=== PATIENT | female | born 1940 | race Caucasian/White ===

== ENCOUNTER 2016-08-13 18:57 | Inpatient (IN) | payer OTHER, MEDICAID ==
[~2016-08-13] VITALS: Ht 160 cm; Wt 52.8 kg
[~2016-08-13 18:57] MED LIST: ASPI81TA3 PO; FOLI-49 PO; IPRA4AER INHALATION; LORA1TAB PO; MONT5TAB16 PO; MORP30TA3 PO; POLY17PO6 PO
[2016-08-13] MEDS ORDERED: FLUT9.9S NASAL (22:34)
[2016-08-13] MEDS ORDERED: LORA1TAB PO (22:35)
[2016-08-13] MEDS ORDERED: ALBU2.5V3 NEB (22:36)
--- NOTE | 2016-08-13 23:15 | RADRPT ---
PROCEDURE: Chest xray. CLINICAL INDICATION: Shortness of breath. History of stage IV lung cancer. TECHNIQUE: A portable semi-erect AP view of the chest was obtained. COMPARISON: A 05/03/2016. FINDINGS: There is essentially complete dense opacification of the left hemithorax. The right lung is unremark able. The cardiac silhouette is partially obscured. The heart and lower trachea are shifted to the right due to mass effect. Again seen are sclerotic osseous masses involving the least 2 left-sided r ibs. The right-sided implantable port is in stable position with its tip projecting in the right at rium. IMPRESSION: Essentially complete dense opacification of the left hemithorax, which may be related to any combina tion of pleural effusion, atelectasis, mass, and / or consolidation. Associated rightward shift of t he lower trachea/mediastinum and the heart. Redemonstration of sclerotic osseous masses involving left-sided ribs. RPTAT:PP .Kristina Sotleo MD, MD Date Time Electronically viewed and signed by .Kristina Sotelo MD, on 08/13/2016 23:10 .K/
[2016-08-13 23:16] LABS: BASOPHILS % 0.5 % (0.0-2.0); CONDITION 1; EOSINOPHILS # 0.1 10^3/ul (0.0-0.5); EOSINOPHILS % 1.1 % (0.0-7.0); HEMATOCRIT 37.2 % (37.0-47.0); HEMOGLOBIN 12.6 g/dl (12.0-16.0); LH ANALYZER COMMENTS 1; LYMPHOCYTES # 2.3 10^3/ul (0.8-2.9); LYMPHOCYTES % 22.9 % (15.0-51.0); MEAN CORPUSCULAR HEMOGLOBIN 27.4 pg (29.0-33.0); MEAN CORPUSCULAR VOLUME 80.8 fl (82.0-101.0); MEAN PLATELET VOLUME 7.5 fl (7.4-10.4); MONOCYTE # 0.9 10^3/ul (0.3-0.9); MONOCYTES % 8.6 % (0.0-11.0); NEUTROPHIL # 6.6 10^3/ul (1.6-7.5); NEUTROPHILS % 66.9 % (39.0-77.0); PLATELET COUNT 380 10^3/UL (140-440); RED BLOOD COUNT 4.61 10^6/ul (4.20-5.40); RED CELL DISTRIBUTION WIDTH 14.9 % (11.5-14.5); UNCORRECTED WBC 9.9 10^3/ul (4.8-10.8); WHITE BLOOD COUNT 9.9 10^3/ul (4.8-10.8)
[2016-08-13 23:21] LABS: ALBUMIN 4.2 g/dl (3.3-4.9); CHLORIDE 100 mmol/L (97-110); SODIUM 141 mmol/L (135-144)
[2016-08-13 23:24] LABS: ALANINE AMINOTRANSFERASE 24 IU/L (13-69); ALBUMIN/GLOBULIN RATIO 1.31; ALKALINE PHOSPHATASE 82 IU/L (42-121); ANION GAP 19 (8-16); ASPARTATE AMINO TRANSFERASE 29 IU/L (15-46); BLOOD UREA NITROGEN 22 mg/dl (7-20); CALCIUM 9.4 mg/dl (8.4-10.2); CARBON DIOXIDE 26 mmol/L (21-31); CREATININE 0.74 mg/dl (0.44-1.00); GLUCOSE 78 mg/dl (70-220); TOTAL PROTEIN 7.4 g/dl (6.1-8.1)
[2016-08-13 23:40] LABS: INR 0.95; PROTIME 12.7 Sec (12.2-14.2)
[2016-08-13 23:41] LABS: PARTIAL THROMBOPLASTIN TIME 30.5 Sec (25.0-35.0)
[2016-08-13 23:42] LABS: TROPONIN-I < 0.012 ng/ml (0.00-0.12)
--- NOTE | 2016-08-13 23:49 | ERA ---
ER Documentation Chief Complaint Date/Time DATE: 08/13/16 TIME: 23:47 Chief Complaint SOB lately, hx St4 Lung CA, on immunosuppressants HPI This is 76-year-old female with a history of stage IV left lung cancer with recurrent left lung pleural effusions. The patient had a PET scan on Monday, 08 August demonstrating left lung opacification. She discuss resolving the issue with pleurocentesis with her doctor who wanted to admit her to the hospital but she did not want to at that time she says now she wants to come in and get it taken care of. She has some mild shortness of breath with walking but no shortness of breath at rest no fever only a slight cough is nonproductive. The patient states that she has had this for the fourth time now. She says that the lung cancer is the primary and there is no metastasis according to her. ROS All systems reviewed and are negative except as per history of present illness. Medications Home Meds Active Scripts Albuterol/Ipratropium* (Combivent Respimat*) 20-100 Mcg/Inh - 4 Gm Aer.w.adap, 1 PUFF INHALATION QID, #1 INHALER Prov:ARIAN ANDERSON MD 05/04/16 Reported Medications Albuterol Sulfate* (Albuterol Sulfate* Neb) 0.083%-3 Ml Neb, 2.5 MG NEB PRN Y for WHEEZING AND SOB, #30 VIAL 08/13/16 Lorazepam* (Lorazepam*) 1 Mg Tablet, 1 MG PO HS Y for SLEEP, #30 TAB 08/13/16 Fluticasone Propionate (Flonase Allergy Relief) 9.9 Ml [place].susp, 1 SPRAY NASAL DAILY, #1 BOTTLE TO EACH NOSTRIL 08/13/16 Folic Acid* (Folic Acid*) 1 Mg Tablet, 1 MG PO DAILY, TAB 03/23/15 Aspirin* (Aspirin* Chew) 81 Mg Tab.chew, 81 MG PO DAILY, TAB.CHEW 03/23/15 Montelukast Sodium* (Montelukast Sodium*) 5 Mg Tab.chew, 5 MG PO HS, TAB.CHEW 03/23/15 Discontinued Reported Medications Lorazepam* (Lorazepam*) 1 Mg Tablet, 1 MG PO DAILY Y for ANXIETY, TAB 03/23/15 Discontinued Scripts Morphine Sulfate (Morphine Sulfate ER) 30 Mg Tablet.er, 30 MG PO BID for 1 Day, TAB Prov:ARIAN ANDERSON MD 05/04/16 Polyethylene Glycol* (Miralax*) 17 Gm Powd.pack, 17 GM PO DAILY Y for CONSTIPATION for 1 Day Prov:ARIAN ANDERSON MD 01/27/16 Allergies Allergies: Coded Allergies: codeine (Verified Allergy, Unknown, 08/13/16) PMhx/Soc Medical and Surgical Hx: pt denies Surgical Hx History of Surgery: No Anesthesia Reaction: Yes Hx Neurological Disorder: No Hx Respiratory Disorders: No Hx Cardiac Disorders: No Hx Psychiatric Problems: No Hx Alcohol Use: No Hx Substance Use: No Hx Tobacco Use: No Smoking Status: Unknown if ever smoked FmHx Family History: No coronary disease Physical Exam Vitals Vital Signs Date Time Temp Pulse Resp B/P Pulse Ox O2 Delivery O2 Flow Rate FiO2 08/13/16 23:21 62 20 128/66 100 Nasal Cannula 2.0 08/13/16 23:17 Nasal Cannula 2 08/13/16 22:29 66 21 139/95 100 Room Air 08/13/16 19:00 98.6 81 20 147/62 98 Physical Exam Const: Well-developed, well-nourished Head: Atraumatic, normocephalic Eyes: Normal Conjunctiva, PERRLA, EOMI, normal sclera, no nystagmus ENT: Normal External Ears, Nose and Mouth, moist mucus membranes. Neck: Full range of motion. No meningismus, no lymphadenopathy. Resp: Clear to auscultation right lung, left lung has no breath sounds , no shortness of breath , no wheezing, rhonchi, rales Cardio: Regular rate and rhythm, no murmurs, S1 S2 present Abd: Soft, non tender x 4, non distended. Normal bowel sounds, no guarding or rebound, no pulsitile abdominal masses or bruits Skin: No petechiae or rashes, no ecchymosis , no maculopapular rash Back: No midline or flank tenderness Ext: No cyanosis, or edema, FROM x 4, normal inspection, neurovascularly intact x 4 Neur: Awake and alert, STR 5/5 x 4, sensation intact x 4, no focal findings, cerebellum intact Psych: Normal Mood and Affect Result Diagram: 08/13/16 2300 08/13/16 2300 Results 24 hrs Laboratory Tests Test 08/13/16 23:00 Activated Partial Thromboplast Time 30.5Sec Alanine Aminotransferase (ALT/SGPT) 24IU/L Albumin 4.2g/dl Albumin/Globulin Ratio 1.31 Alkaline Phosphatase 82IU/L Anion Gap 19 Aspartate Amino Transf (AST/SGOT) 29IU/L Basophils # 0.010^3/ul Basophils % 0.5% Blood Morphology Comment Blood Urea Nitrogen 22mg/dl Calcium Level 9.4mg/dl Carbon Dioxide Level 26mmol/L Chloride Level 100mmol/L Creatinine 0.74mg/dl Direct Bilirubin 0.00mg/dl Eosinophils # 0.110^3/ul Eosinophils % 1.1% Globulin 3.20g/dl Glucose Level 78mg/dl Hematocrit 37.2% Hemoglobin 12.6g/dl INR International Normalized Ratio 0.95 Indirect Bilirubin 0.0mg/dl Lymphocytes # 2.310^3/ul Lymphocytes % 22.9% Mean Corpuscular Hemoglobin 27.4pg Mean Corpuscular Hemoglobin Concent 34.0g/dl Mean Corpuscular Volume 80.8fl Mean Platelet Volume 7.5fl Monocytes # 0.910^3/ul Monocytes % 8.6% Neutrophils # 6.610^3/ul Neutrophils % 66.9% Nucleated Red Blood Cells # 0.010^3/ul Nucleated Red Blood Cells % 0.0/100WBC Platelet Count 43475^3/UL Potassium Level 4.0mmol/L Prothrombin Time 12.7Sec Prothrombin Time Ratio 1.0 Red Blood Count 4.6110^6/ul Red Cell Distribution Width 14.9% Sodium Level 141mmol/L Total Bilirubin 0.0mg/dl Total Protein 7.4g/dl Troponin I < 0.012ng/ml White Blood Count 9.910^3/ul Procedures/MDM PROCEDURE: Chest xray. CLINICAL INDICATION: Shortness of breath. History of stage IV lung cancer. TECHNIQUE: A portable semi-erect AP view of the chest was obtained. COMPARISON: A 05/03/2016. FINDINGS: There is essentially complete dense opacification of the left hemithorax. The right lung is unremarkable. The cardiac silhouette is partially obscured. The heart and lower trachea are shifted to the right due to mass effect. Again seen are sclerotic osseous masses involving the least 2 left-sided ribs. The right- sided implantable port is in stable position with its tip projecting in the right atrium. IMPRESSION: Essentially complete dense opacification of the left hemithorax, which may be related to any combination of pleural effusion, atelectasis, mass, and / or consolidation. Associated rightward shift of the lower trachea/mediastinum and the heart. Redemonstration of sclerotic osseous masses involving left-sided ribs. RPTAT:PP .Kristina Sotelo MD, MD Date Time Electronically viewed and signed by .Kristina Sotelo MD, MD on 08/13/2016 23: 10 .K/ CC: ARIADNE CARRERA DO We will admit the patient to the hospital again for thoracentesis of the left lung Departure Diagnosis: Primary Impression: Recurrent left pleural effusion Additional Impression: Pleural effusion, left Condition: Stable ARIADNE CARRERA DO Aug 13, 2016 23:49
[2016-08-14] VITALS (13 sets, daily range): BP systolic 83–117; BP diastolic 47–55; PULSE 60–72; RESP 18–20; Ht 160 cm; Wt 52.8 kg
[2016-08-14] MEDS ORDERED: SOD CHLORIDE 0.9% 1,000 ML IV SCH (00:26)
[2016-08-14] MEDS ORDERED: ONDANSETRON 4 MG INJ IV PRN ×2 (00:30→01:00)
[2016-08-14] MEDS ORDERED: ACETAMINOPHEN 325 MG TAB PO PRN ×2 (00:30→01:00)
--- NOTE | 2016-08-14 00:51 | HP ---
Date/Time of Note Date/Time of Note DATE: 08/14/16 TIME: 00:40 Assessment/Plan VTE Prophylaxis VTE Prophylaxis Intervention: heparin Assessment/Plan Assessment/Plan This is a 76-year-old female with a known history of stage IV adenocarcinoma of the lung who is undergoing chemotherapy with Dr. Quiñones, malignant pleural effusion, dyslipidemia, glaucoma, anemia of chronic disease who has been having shortness of breath for the last week. 1. Malignant pleural effusion - will admit the patient for observation to telemetry, thoracentesis with cytology, consult pulmonology, respiratory therapy prn, repeat CXR in am 2. Non-small cell CA stage IV - consult Dr. Quiñones for appropriate follow - up 3. DVT remotely - continue with heparin post thoracentesis 4. Dyslipidemia - statin 5. Glaucoma - continue with home eye drops 6. Anemia of chronic disease - monitor h/h, transfuse if hgb < 8 g/dL 7. GI ppx - pepcid 8. DVT ppx - heparin answered all of her questions. as per clinical course. patient refused IV insertion at this time. this history and physical took greater then 45 minutes to complete HPI/ROS Admit Date/Time Admit Date/Time 08/14/2016, 12:41 am Hx of Present Illness This is a 76-year-old female with a known history of stage IV adenocarcinoma of the lung who is undergoing chemotherapy with Dr. Quiñones, malignant pleural effusion, dyslipidemia, glaucoma, anemia of chronic disease who has been having shortness of breath for the last week. She was suppose to have a thoracentesis as an outpatient, but thought it would get better. She has had worsening shortness of breath, with pleuritic chest pain, chills, and dizziness as a result. She does not want a pleurex catheter or VATS procedure at this time 2/2 to the multiple locations of the malignant lung CA. Her last chemotherapy was 3 weeks ago, and is scheduled for repeat on 08/16/2016. I had spoken to her in regards to the possibly having her chemotherapy here. Otherwise denies any fevers, nausea/vomiting/diarrhea/constipation, loss of consciousness, urinary/bowel irregularities or other constitutional symptoms. Her last admission was 05/02/2016. ER course: supplemental oxygen ROS 14 point review of systems completed, please refer to HPI for any positive findings PMH/Family/Social Past Medical History Malignant pleural effusion recurrent, stage IV adenocarcinoma of the lungs, glaucoma, anemia of chronic disease, remote history of DVT, breast cancer Past Surgical History Left lumpectomy, appendectomy, tonsillectomy, uterine cyst removal, multiple biopsies, s/p thoracentesis Family History Significant Family History: no pertinent family hx Social History Alcohol Use: none Smoking Status: Former smoker Drug Use: none Exam/Review of Systems Vital Signs Vitals Vital Signs Date Time Temp Pulse Resp B/P Pulse Ox O2 Delivery O2 Flow Rate FiO2 08/14/16 00:06 65 20 118/99 99 Room Air 08/13/16 23:21 2.0 08/13/16 19:00 98.6 Exam Exam Gen Opal: mild distress 2/2 to shortness of breath, AAOx4, cachetic body habitus HEENT: NC/AT, PERRLA, EOMI, no pharyngeal erythema, no tonsillar exudates, no lymphadenopathy, no JVD, no carotid bruits NECK: supple, no thyromegaly THORAX: symmetrical, no obvious deformities CV: S1S2, RRR, no M/G/R Lungs: right lung clear, left lung no aeration/breath sounds throughout all lung tomlin Abd: soft, NT/ND, +BS, no rebound, no guarding, neg HSM EXT: no edema, scattered ecchymosis, no clubbing, FROM Neuro: CN II-XII grossly intact, no focal deficits Psych: good mentation, alert and oriented, good mood and affect Skin: scattered petechiae, ecchymoses Labs Result Diagram: 08/13/16 2300 08/13/16 2300 Medications Medications Current Medications Sodium Chloride (NS) 1,000 ml @ 80 mls/hr [id number] IV ; Start 08/14/16 at 00:26 ; Stop 08/14/16 at 12:55 Procedures Procedures CXR IMPRESSION: Essentially complete dense opacification of the left hemithorax, which may be related to any combination of pleural effusion, atelectasis, mass, and / or consolidation. Associated rightward shift of the lower trachea/mediastinum and the heart. Redemonstration of sclerotic osseous masses involving left-sided ribs. YOLI GAMEZ MD Aug 14, 2016 00:51
[2016-08-14] MEDS ORDERED: NACL 0.9% 3 ML SYG IV SCH (01:00)
[2016-08-14] MEDS ORDERED: NITROGLYCERIN (SL) 0.4 MG TAB SL PRN (01:00)
[2016-08-14] MEDS ORDERED: ZOLPIDEM 5 MG TAB PO PRN (01:00)
[2016-08-14] MEDS ORDERED: morphine 2 MG INJ IV PRN (01:00)
[2016-08-14] MEDS: LORAZEPAM 2 MG INJ IV PRN ×2 (02:32→20:56)
[2016-08-14] MEDS: ASPIRIN 81 MG TAB PO SCH (09:00)
[2016-08-14] MEDS: FOLIC ACID 1 MG TAB PO SCH (09:00)
[2016-08-14] MEDS ORDERED: NON-FORMULARY/PATIENT OWN MED (Albuterol/Ipratropium* (Combivent Respimat*) 1 PUFF) INHALATION SCH (09:00)
[2016-08-14] MEDS: FAMOTIDINE 20 MG TAB PO SCH ×2 (09:00→20:56)
[2016-08-14] MEDS: FLUTICASONE 0.05% 16 GM NAS SPRAY NASAL SCH (09:22)
[2016-08-14] MEDS: IPRATROPIUM (HFA) 12.9 GM INHALER INH SCH ×4 (09:50→22:45)
[2016-08-14] MEDS: ALBUTEROL HFA 8 GM INHALER INH SCH ×4 (09:51→22:46)
[2016-08-14] MEDS: HYDROmorphONE 1 MG/ML SYG IV PRN ×2 (11:28→16:53)
--- NOTE | 2016-08-14 13:29 | CONS ---
Date/Time of Note Date/Time of Note DATE: 08/14/16 TIME: 13:16 Assessment/Plan Assessment/Plan Problems: (1) Recurrent left pleural effusion Status: Acute Comment: NSCLC now s/p 3 lines of treatment, Agree with pulmonary evaluation and thoracentesis with cytology. -Recent keytruda immunotherapy and if outpatient scans done last week do not show response then may need to consider cyramza single agent or combined with taxane if patient agrees to it. If stable disease, then consider continuing keytruda. Will inform Dr oliver re; patient admission and findings on cxr. continue DVT GI prophylaxis. Consultation Date/Type/Reason Admit Date/Time 08/14/2016, 12:41 am Date of Consultation: Aug 14, 2016 Type of Consultation: Oncology for Dr oliver Reason for Consultation lung c/a Referring Provider: YOLI GAMEZ MD Hx of Present Illness 75 yo female who was diagnosed with stage IV adenocarcinoma of lung, (EGFR/ ALK / ROS1 negative) in Apr 2013. At that time she presented to [facility] with SOB and was found to have bilateral pleural effusions. Of note patient does have a h/o of breast cancer greater than 20 years ago that was treated with lumpectomy and radiation followed by 3 months of tamoxifen therapy. For her stage IV lung cancer pt was initially treated with Alimta/ Cisplatin then had stable disease on Alimta alone for almost 2.5 years. She then progressed and was started on Opdivo immunotherapy and then changed to keytruda immunotherapy for 4 treatments and patient says she has been feeling better since the new start but she had restaging scans last week as an outpatient and she does not know the results of that scan. -Now she is admitted for increasing sob and was found to have left pleural effusion with rt. mediastinal shift. Respiratory: cough, pleuritic pain, shortness of breath, sputum Past Medical History Medical History: cancer, deep vein thrombosis Family History Significant Family History: no pertinent family hx Social History Alcohol Use: none Smoking Status: Never smoker Drug Use: none Exam/Review of Systems Vital Signs Vitals Vital Signs Date Time Temp Pulse Resp B/P Pulse Ox O2 Delivery O2 Flow Rate FiO2 08/14/16 12:47 71 08/14/16 11:46 98.4 20 106/51 94 08/14/16 08:00 Nasal Cannula 2.0 Exam Constitutional: alert, oriented Psych: anxiety Neck: supple Respiratory: crackles/rales, diminished breath sounds Cardiovascular: regular rate and rhythm Gastrointestinal: soft Results Result Diagram: 08/13/16 2300 08/13/16 2300 Results 24 hrs Laboratory Tests Test 08/13/16 23:00 Activated Partial Thromboplast Time 30.5 Alanine Aminotransferase (ALT/SGPT) 24 Albumin 4.2 Albumin/Globulin Ratio 1.31 Alkaline Phosphatase 82 Anion Gap 19 H Aspartate Amino Transf (AST/SGOT) 29 Basophils # 0.0 Basophils % 0.5 Blood Morphology Comment Blood Urea Nitrogen 22 H Calcium Level 9.4 Carbon Dioxide Level 26 Chloride Level 100 Creatinine 0.74 Direct Bilirubin 0.00 Eosinophils # 0.1 Eosinophils % 1.1 Globulin 3.20 Glucose Level 78 Hematocrit 37.2 Hemoglobin 12.6 INR International Normalized Ratio 0.95 Indirect Bilirubin 0.0 Lymphocytes # 2.3 Lymphocytes % 22.9 Mean Corpuscular Hemoglobin 27.4 L Mean Corpuscular Hemoglobin Concent 34.0 Mean Corpuscular Volume 80.8 L Mean Platelet Volume 7.5 Monocytes # 0.9 Monocytes % 8.6 Neutrophils # 6.6 Neutrophils % 66.9 Nucleated Red Blood Cells # 0.0 Nucleated Red Blood Cells % 0.0 Platelet Count 380 Potassium Level 4.0 Prothrombin Time 12.7 Prothrombin Time Ratio 1.0 Red Blood Count 4.61 Red Cell Distribution Width 14.9 H Sodium Level 141 Total Bilirubin 0.0 L Total Protein 7.4 Troponin I < 0.012 White Blood Count 9.9 Medications Medications Current Medications Lorazepam (Ativan) 0.5 mg Q6H PRN IV ANXIETY Last administered on 08/14/16t 02: 32; Admin Dose 0.5 MG; Start 08/14/16 at 01:00 Ondansetron HCl (Zofran Inj) 4 mg Q6H PRN IV NAUSEA AND/OR VOMITING; Start at 01:00 Nitroglycerin (Nitroglycerin (Sl Tab) 0.4 Mg) 1 tab Q5M PRN SL CHEST PAIN; Start 08/14/16 at 01:00 Acetaminophen (Tylenol Tab) 650 mg Q6H PRN PO PAIN LEVEL 1-3 OR FEVER; Start at 01:00 Morphine Sulfate (morphine) 2 mg Q4H PRN IV PAIN LEVEL 7-10; Start 08/14/16 at 01:00 Hydromorphone HCl (Dilaudid) 0.5 mg Q4H PRN IV PAIN LEVEL 7-10 Last administered on 08/14/16 11:28; Admin Dose 0.5 MG; Start 08/14/16 at 01:00 Zolpidem Tartrate (Ambien) 5 mg QHS PRN PO INSOMNIA; Start 08/14/16 at 01:00 Famotidine (Pepcid) 20 mg Q12 PO ; Start 08/14/16 at 09:00 Heparin Sodium (Porcine) (Heparin (5000 Units/0.5 ml)) 5,000 unit Q12 SC ; Start 08/14/16 at 21:00 Aspirin (Aspirin) 81 mg DAILY PO ; Start 08/14/16 at 09:00 Fluticasone Propionate (Flonase 0.05% Nasal) 1 spray DAILY NASAL Last administered on 08/14/16 09:22; Admin Dose 1 SPRAY; Start 08/14/16 at 09:00 Folic Acid (Folic Acid) 1 mg DAILY PO ; Start 08/14/16 at 09:00 Montelukast Sodium (Singulair) 5 mg HS PO ; Start 08/14/16 at 21:00 Albuterol (Ventolin Hfa) 1 puff QID INH Last administered on 08/14/16 09:51; Admin Dose 1 PUFF; Start 08/14/16 at 09:00 Ipratropium [place] (Atrovent Hfa) 1 puff QID INH Last administered on 09:50; Admin Dose 1 PUFF; Start 08/14/16 at 09:00 Lorazepam (Ativan) 1 mg HS PRN PO insomnia; Start 08/14/16 at 21:00 DELORES GUILLEN MD Aug 14, 2016 13:26
[2016-08-14] MEDS ORDERED: BISACODYL (EC) 5 MG TAB PO PRN (14:00)
[2016-08-14] MEDS ORDERED: LIDOCAINE 1% (MPF) 5 ML VIAL ONE (15:08)
--- NOTE | 2016-08-14 15:54 | RADRPT ---
PROCEDURE: XR Chest. CLINICAL INDICATION: Shortness of breath. Post left thoracentesis. TECHNIQUE: Single frontal view. COMPARISON: 08/13/2016. FINDINGS: The right lung remains clear. The right chest port remains in satisfactory position. The left lung is collapsed and there is a left pneumothorax measuring approximately 40%. Previously noted left p leural effusion is no longer present. There is no right pneumothorax. The heart size is normal. Surgical clips are present in the left axilla as seen previously. Sclerotic left rib lesions are unchanged. IMPRESSION: 1. Large pneumothorax following left thoracentesis. The patient is asymptomatic. 2. No other change from the prior study. Call report: A call report of the findings was made to Torey Keyonna on 08/14/2016 at 1515 hours. RPTAT: QQ .Waldemar Montalvo MD, MD Date Time Electronically viewed and signed by .Waldemar Montalvo MD, MD on 08/14/2016 15:53 .R/
--- NOTE | 2016-08-14 15:55 | RADRPT ---
PROCEDURE: US guided left thoracentesis. CLINICAL INDICATION: Shortness of breath. Left pleural effusion. TECHNIQUE: Prior to the procedure, informed consent was obtained. The risks, benefits, and alternatives were e xplained to the patient or the patient's family, including but not limited to bleeding, infection, p ain, visceral or vascular damage, shock, pneumothorax, chest tube placement, air embolism, and . The patient or the patient's family understood the risks and the alternatives and wished to proce ed with the study. Informed written consent was obtained. A procedural pause was performed. The patient's name, date of , and procedure to be performed were verified. Ultrasound of the left hemithorax was performed in the axial and sagittal planes. A left pleural eff usion is noted. Utilizing ultrasound guidance, optimal location for entry to the pleural cavity was ascertained. The overlying skin was prepped and draped in the usual sterile fashion. Approximately 10 ml of 1% Xylocaine was injected locally for pain control. Using ultrasound guidance, a 5-Irish Yueh catheter was introduced into the left pleural space without difficulty. Fluid was aspirated. COMPARISON: None. FINDINGS: Initial ultrasound demonstrates fluid in the left pleural space. Approximately 1.25 liters of serou s fluid was aspirated and sent to the laboratory. IMPRESSION: 1. Satisfactory ultrasound-guided left thoracentesis. RPTAT: QQ .Waldemar Montalvo MD, Date Time Electronically viewed and signed by .Waldemar Montalvo MD, on 08/14/2016 15:54 .R/
--- NOTE | 2016-08-14 18:16 | CONS ---
DATE OF ADMISSION: 08/14/2016 DATE OF CONSULTATION: 08/14/2016 REASON FOR CONSULT: Shortness of breath. Thank you, Dr. Lozoya, for this consultation. HISTORY OF PRESENT ILLNESS: This is a pleasant 76-year-old lady with history of metastatic lung can cer with recurrent left pleural effusion. Last thoracentesis performed in 04/2016. She failed conv entional chemotherapy and is now undergoing salvage chemotherapy per Dr. Maddison Quiñones. Had a recent PET CT scan, which demonstrated extensive left-sided pleural effusion with complete opacification o f left lung and compressive atelectasis. In addition, she has widespread metastatic disease to her left lung. Currently denies any fever, chills, chest pain, palpitations. She is remarkably functio nal despite her advanced lung cancer. PAST MEDICAL HISTORY: 1. Metastatic nonsmall cell lung cancer. 2. Recurrent pleural effusion. 3. History of deep vein thrombosis. 4. History of anemia of chronic disease. MEDICATIONS: Per chart. ALLERGIES: NONE. SOCIAL HISTORY: Ex-smoker. No alcohol, no history of drug use. FAMILY HISTORY: Noncontributory. SYSTEMS REVIEW: A 12-point review of systems negative other than that mentioned above. PHYSICAL EXAMINATION: GENERAL: Well-nourished, well-developed lady, comfortable at rest, no acute distress. VITAL SIGNS: Currently afebrile, pulse is 80, blood pressure 106/51, O2 saturation 96% on 2 L nasal cannula. NECK: Supple. No JVD or lymphadenopathy. CARDIAC: S1, S2. No added sounds or murmurs. CHEST: Diminished air entry bilaterally. ABDOMEN: Soft, nontender. No guarding or rebound. EXTREMITIES: No cyanosis, clubbing, edema. NEUROLOGIC: Generalized weakness. LABORATORY DATA: White count 9.9, hemoglobin 12, platelets 380. Chemistry within normal limits. I NR was 0.9. IMPRESSION AND PLAN: Recurrent left pleural effusion with underlying history of metastatic nonsmall cell lung cancer. The patient will need: 1. Thoracentesis for therapeutic purposes. 2. Hold off on a PleurX catheter for now, as the last thoracentesis was done 4 months ago. 3. Hematology/oncology evaluation. Will likely require continued chemotherapy. 4. DVT and GI prophylaxis. Dictated By: JONI OWEN/JACEY Conf#: [id number] DID#: [id number] CC: YOLI LOZOYA MD;*End*
--- NOTE | 2016-08-14 18:47 | QN ---
Documentation Comment A call was received from radiology Dr. Montalvo regarding the patient's left pneumothorax after she got thoracentesis. This was discussed with the metal stamper. Casting Operator Helper reviewed the X-ray with me and recommended no interventions, but monitor the patient. Case discussed with Dr. Naidu. HEMA COCHRAN NP Aug 14, 2016 18:47
[2016-08-14] MEDS ORDERED: LORAZEPAM 1 MG TAB PO PRN (21:00)
[2016-08-14] MEDS ORDERED: MONTELUKAST 5 MG TAB PO SCH (21:00)
[2016-08-14] MEDS ORDERED: LORAZEPAM 1 MG TAB PO SCH (21:00)
[2016-08-14] MEDS: HEPARIN 5,000 UNIT/0.5 ML SYG SC SCH (21:08)
[2016-08-15] VITALS (9 sets, daily range): BP systolic 99–145; BP diastolic 44–86; PULSE 63–80; RESP 18–19
[2016-08-15] MEDS: HYDROmorphONE 1 MG/ML SYG IV PRN ×2 (00:52→06:05)
[2016-08-15 07:00] LABS: MAGNESIUM 2.1 mg/dl (1.7-2.5); PHOSPHORUS 3.6 mg/dl (2.5-4.9)
[2016-08-15 07:04] LABS: POTASSIUM 3.9 mmol/L (3.5-5.1)
[2016-08-15 07:06] LABS: CREATININE 0.7 mg/dl (0.44-1.00)
[2016-08-15 07:07] LABS: CALCIUM 8.7 mg/dl (8.4-10.2)
[2016-08-15 07:30] LABS: BASOPHILS % 0.4 % (0.0-2.0); EOSINOPHILS # 0.1 10^3/ul (0.0-0.5); EOSINOPHILS % 0.6 % (0.0-7.0); HEMATOCRIT 33.9 % (37.0-47.0); HEMOGLOBIN 11.6 g/dl (12.0-16.0); LYMPHOCYTES # 1.6 10^3/ul (0.8-2.9); LYMPHOCYTES % 16.4 % (15.0-51.0); MEAN CORPUSCULAR HEMOGLOBIN 27.6 pg (29.0-33.0); MEAN CORPUSCULAR HGB CONC 34.1 g/dl (32.0-37.0); MEAN PLATELET VOLUME 8.1 fl (7.4-10.4); MONOCYTE # 1.2 10^3/ul (0.3-0.9); MONOCYTES % 11.6 % (0.0-11.0); NEUTROPHIL # 7.1 10^3/ul (1.6-7.5); PLATELET COUNT 339 10^3/UL (140-440); RED BLOOD COUNT 4.19 10^6/ul (4.20-5.40); RED CELL DISTRIBUTION WIDTH 14.8 % (11.5-14.5); THYROID STIMULATING HORMONE 6.7 MIU/L (0.465-4.680)
[2016-08-15 07:33] LABS: CONDITION 1; LH ANALYZER COMMENTS 1
[2016-08-15] MEDS: IPRATROPIUM (HFA) 12.9 GM INHALER INH SCH ×2 (10:04→13:00)
[2016-08-15] MEDS: FLUTICASONE 0.05% 16 GM NAS SPRAY NASAL SCH (10:04)
[2016-08-15] MEDS: FOLIC ACID 1 MG TAB PO SCH (10:05)
[2016-08-15] MEDS: ASPIRIN 81 MG TAB PO SCH (10:05)
[2016-08-15] MEDS: ALBUTEROL HFA 8 GM INHALER INH SCH ×2 (10:05→13:00)
[2016-08-15] MEDS: FAMOTIDINE 20 MG TAB PO SCH (10:06)
[2016-08-15] MEDS: HEPARIN 5,000 UNIT/0.5 ML SYG SC SCH (10:08)
--- NOTE | 2016-08-15 12:43 | CONS ---
Date/Time of Note Date/Time of Note DATE: 08/15/16 TIME: 12:40 Consult Date/Type/Reason Admit Date/Time Aug 14, 2016 at 00:26 Initial Consult Date 08/14/16 Type of Consultation: pulmonary Ordering Provider: YOLI GAMEZ MD Subjective Status post thoracentesis left lung with 1.25 L removed Patient feels better following procedure Less shortness of breath no orthopnea or PND Chest x-ray didn't demonstrate assess left pneumothorax. This is consistent with trapped lung Objective Vital Signs Date Time Temp Pulse Resp B/P Pulse Ox O2 Delivery O2 Flow Rate FiO2 08/15/16 12:26 80 08/15/16 11:34 98.2 18 118/59 93 08/15/16 07:50 Nasal Cannula 2.0 Intake and Output 08/14/16 08/14/16 08/15/16 15:00 23:00 07:00 Intake Total 1600 ml 400 ml Balance 1600 ml 400 ml PHYSICAL EXAMINATION: GENERAL: Well-nourished, well-developed lady, comfortable at rest, no acute distress. VITAL SIGNS: Vital signs stable NECK: Supple. No JVD or lymphadenopathy. CARDIAC: S1, S2. No added sounds or murmurs. CHEST: Diminished air entry bilaterally. ABDOMEN: Soft, nontender. No guarding or rebound. EXTREMITIES: No cyanosis, clubbing, edema. NEUROLOGIC: Generalized weakness. Results/Medications Result Diagram: 08/15/16 0557 08/15/16 0557 Results 24 hrs Laboratory Tests Test 08/15/16 05:57 Anion Gap 15 Basophils # 0.0 Basophils % 0.4 Blood Morphology Comment Blood Urea Nitrogen 18 Calcium Level 8.7 Carbon Dioxide Level 26 Chloride Level 99 Creatinine 0.70 Eosinophils # 0.1 Eosinophils % 0.6 Free Thyroxine 0.97 Glucose Level 94 Hematocrit 33.9 L Hemoglobin 11.6 L Lymphocytes # 1.6 Lymphocytes % 16.4 Magnesium Level 2.1 Mean Corpuscular Hemoglobin 27.6 L Mean Corpuscular Hemoglobin Concent 34.1 Mean Corpuscular Volume 81.0 L Mean Platelet Volume 8.1 Monocytes # 1.2 H Monocytes % 11.6 H Neutrophils # 7.1 Neutrophils % 71.0 Nucleated Red Blood Cells # 0.0 Nucleated Red Blood Cells % 0.0 Phosphorus Level 3.6 Platelet Count 339 Potassium Level 3.9 Red Blood Count 4.19 L Red Cell Distribution Width 14.8 H Sodium Level 136 Thyroid Stimulating Hormone (TSH) 6.700 H White Blood Count 10.0 Medications Current Medications Lorazepam (Ativan) 0.5 mg Q6H PRN IV ANXIETY Last administered on 08/14/16 20: 56; Admin Dose 0.5 MG; Start 08/14/16 at 01:00 Ondansetron HCl (Zofran Inj) 4 mg Q6H PRN IV NAUSEA AND/OR VOMITING Last administered on 08/15/16 06:04; Admin Dose 4 MG; Start 08/14/16 at 01:00 Nitroglycerin (Nitroglycerin (Sl Tab) 0.4 Mg) 1 tab Q5M PRN SL CHEST PAIN; Start 08/14/16 at 01:00 Acetaminophen (Tylenol Tab) 650 mg Q6H PRN PO PAIN LEVEL 1-3 OR FEVER; Start at 01:00 Morphine Sulfate (morphine) 2 mg Q4H PRN IV PAIN LEVEL 7-10 Last administered on 08/14/16 14:18; Admin Dose 2 MG; Start 08/14/16 at 01:00 Hydromorphone HCl (Dilaudid) 0.5 mg Q4H PRN IV PAIN LEVEL 7-10 Last administered on 08/15/16 06:05; Admin Dose 0.5 MG; Start 08/14/16 at 01:00 Zolpidem Tartrate (Ambien) 5 mg QHS PRN PO INSOMNIA; Start 08/14/16 at 01:00 Famotidine (Pepcid) 20 mg Q12 PO Last administered on 08/15/16 10:06; Admin Dose 20 MG; Start 08/14/16 at 09:00 Heparin Sodium (Porcine) (Heparin (5000 Units/0.5 ml)) 5,000 unit Q12 SC Last administered on 08/15/16 10:08; Admin Dose 5,000 UNIT; Start 08/14/16 at 21:00 Aspirin (Aspirin) 81 mg DAILY PO Last administered on 08/15/16 10:05; Admin Dose 81 MG; Start 08/14/16 at 09:00 Fluticasone Propionate (Flonase 0.05% Nasal) 1 spray DAILY NASAL Last administered on 08/15/16 10:04; Admin Dose 1 SPRAY; Start 08/14/16 at 09:00 Folic Acid (Folic Acid) 1 mg DAILY PO Last administered on 08/15/16 10:05; Admin Dose 1 MG; Start 08/14/16 at 09:00 Montelukast Sodium (Singulair) 5 mg HS PO Last administered on 08/14/16 21:40 ; Admin Dose 5 MG; Start 08/14/16 at 21:00 Albuterol (Ventolin Hfa) 1 puff QID INH Last administered on 08/15/16 10:05; Admin Dose 1 PUFF; Start 08/14/16 at 09:00 Ipratropium [place] (Atrovent Hfa) 1 puff QID INH Last administered on 10:04; Admin Dose 1 PUFF; Start 08/14/16 at 09:00 Lorazepam (Ativan) 1 mg HS PRN PO insomnia; Start 08/14/16 at 21:00 Bisacodyl (Dulcolax) 10 mg DAILY PRN PO CONSTIPATION Last administered on 15:59; Admin Dose 10 MG; Start 08/14/16 at 14:00 Assessment/Plan Chief Complaint/Hosp Course IMPRESSION 1. History of non-small cell lung cancer stage IV status post chemotherapy. Recurrent left pleural effusion 2. Last thoracentesis was 4 months ago. 3. Recent PET CT scan shows extensive disease left lung. Plan 1. Status post thoracentesis patient clinically improved 2. Lung therefore radiographic appearance of pneumothorax. Unlikely the lung will reexpand. Patient remains asymptomatic and would not place a chest tube for this. 3. Follow-up with Dr. Quiñones regarding oncology recommendations. Patient considering all options including palliative care. Discharge planning okay from pulmonary standpoint Follow-up with me in 2-3 weeks Problems: JONI ORTEGA MD, [facility] Aug 15, 2016 12:43
--- NOTE | 2016-08-15 13:33 | PDOCDIS ---
Discharge Instructions CONDITION Patient Condition: Good HOME CARE INSTRUCTIONS: Special Diet: cardiac ACTIVITY: Activity Restrictions: No Restrictions FOLLOW UP/APPOINTMENTS Appointments Follow up with title search manager oncologist as outpatient Follow up with hydrological technical officer as outpatient ARIAN ANDERSON MD Aug 15, 2016 13:33
[2016-08-15] MEDS ORDERED: HEPARIN (100 UNITS/ML) 5 ML SYG CATHETER ONE (16:00)
--- NOTE | 2016-08-15 16:12 | CONS ---
Date/Time of Note Date/Time of Note DATE: 08/15/16 TIME: 15:47 Assessment/Plan Assessment/Plan Chief Complaint/Hosp Course 75 yo female who was diagnosed with stage IV adenocarcinoma of lung, (EGFR/ ALK / ROS1 negative) in Apr 2013. Pt has progressed through carboplatin Alimpta, Opdivo and is now on Keytruda. Pt was brought in for shortness of breath. Last PET CT done demonstrated complete collapse of the left lung and 2 hyperactive pulmonary nodules. Pt is now s/p thoracentesis and her shortness of breath has improved. AT this point patient states she feels better on Keytruda and would like to try and continue this as an out patient. If she progresses through this patient has agreed to try Cyramza/ Taxotere. -ok for discharge from an oncology standpoint Problems: Consultation Date/Type/Reason Admit Date/Time Aug 14, 2016 at 00:26 Initial Consult Date 08/14/16 Type of Consultation: pulmonary Reason for Consultation non small cell lung cancer Referring Provider: YOLI GAMEZ MD 24 HR Interval Summary Free Text/Dictation s/p thoracentesis. feels better. pt states she feels better on Keytruda Exam/Review of Systems Vital Signs Vitals Vital Signs Date Time Temp Pulse Resp B/P Pulse Ox O2 Delivery O2 Flow Rate FiO2 08/15/16 15:28 98.3 77 18 145/86 96 08/15/16 13:16 2.0 08/15/16 07:50 Nasal Cannula Intake and Output 08/14/16 08/14/16 08/15/16 15:00 23:00 07:00 Intake Total 1600 ml 400 ml Balance 1600 ml 400 ml Exam Constitutional: alert, distress, frail Psych: anxiety, depression Head: normocephalic Eyes: nl conjunctiva ENMT: nl external ears & nose Neck: non-tender, supple Respiratory: diminished breath sounds, labored breathing, respirations Cardiovascular: nl pulses, regular rate and rhythm Gastrointestinal: soft Musculoskeletal: nl extremities to inspection Extremities: normal pulses Neurological: SCRAP HOIST OPERATOR II-XII intact Results Result Diagram: 08/15/16 0557 08/15/16 0557 Results 24 hrs Laboratory Tests Test 08/15/16 05:57 Anion Gap 15 Basophils # 0.0 Basophils % 0.4 Blood Morphology Comment Blood Urea Nitrogen 18 Calcium Level 8.7 Carbon Dioxide Level 26 Chloride Level 99 Creatinine 0.70 Eosinophils # 0.1 Eosinophils % 0.6 Free Thyroxine 0.97 Glucose Level 94 Hematocrit 33.9 L Hemoglobin 11.6 L Lymphocytes # 1.6 Lymphocytes % 16.4 Magnesium Level 2.1 Mean Corpuscular Hemoglobin 27.6 L Mean Corpuscular Hemoglobin Concent 34.1 Mean Corpuscular Volume 81.0 L Mean Platelet Volume 8.1 Monocytes # 1.2 H Monocytes % 11.6 H Neutrophils # 7.1 Neutrophils % 71.0 Nucleated Red Blood Cells # 0.0 Nucleated Red Blood Cells % 0.0 Phosphorus Level 3.6 Platelet Count 339 Potassium Level 3.9 Red Blood Count 4.19 L Red Cell Distribution Width 14.8 H Sodium Level 136 Thyroid Stimulating Hormone (TSH) 6.700 H White Blood Count 10.0 Medications Medications Current Medications Lorazepam (Ativan) 0.5 mg Q6H PRN IV ANXIETY Last administered on 08/14/16 20: 56; Admin Dose 0.5 MG; Start 08/14/16 at 01:00 Ondansetron HCl (Zofran Inj) 4 mg Q6H PRN IV NAUSEA AND/OR VOMITING Last administered on 08/15/16 06:04; Admin Dose 4 MG; Start 08/14/16 at 01:00 Nitroglycerin (Nitroglycerin (Sl Tab) 0.4 Mg) 1 tab Q5M PRN SL CHEST PAIN; Start 08/14/16 at 01:00 Acetaminophen (Tylenol Tab) 650 mg Q6H PRN PO PAIN LEVEL 1-3 OR FEVER; Start at 01:00 Morphine Sulfate (morphine) 2 mg Q4H PRN IV PAIN LEVEL 7-10 Last administered on 08/14/16 14:18; Admin Dose 2 MG; Start 08/14/16 at 01:00 Hydromorphone HCl (Dilaudid) 0.5 mg Q4H PRN IV PAIN LEVEL 7-10 Last administered on 08/15/16 06:05; Admin Dose 0.5 MG; Start 08/14/16 at 01:00 Zolpidem Tartrate (Ambien) 5 mg QHS PRN PO INSOMNIA; Start 08/14/16 at 01:00 Famotidine (Pepcid) 20 mg Q12 PO Last administered on 08/15/16 10:06; Admin Dose 20 MG; Start 08/14/16 at 09:00 Heparin Sodium (Porcine) (Heparin (5000 Units/0.5 ml)) 5,000 unit Q12 SC Last administered on 08/15/16 10:08; Admin Dose 5,000 UNIT; Start 08/14/16 at 21:00 Aspirin (Aspirin) 81 mg DAILY PO Last administered on 08/15/16 10:05; Admin Dose 81 MG; Start 08/14/16 at 09:00 Fluticasone Propionate (Flonase 0.05% Nasal) 1 spray DAILY NASAL Last administered on 08/15/16 10:04; Admin Dose 1 SPRAY; Start 08/14/16 at 09:00 Folic Acid (Folic Acid) 1 mg DAILY PO Last administered on 08/15/16 10:05; Admin Dose 1 MG; Start 08/14/16 at 09:00 Montelukast Sodium (Singulair) 5 mg HS PO Last administered on 08/14/16 21:40 ; Admin Dose 5 MG; Start 08/14/16 at 21:00 Albuterol (Ventolin Hfa) 1 puff QID INH Last administered on 08/15/16 10:05; Admin Dose 1 PUFF; Start 08/14/16 at 09:00 Ipratropium [place] (Atrovent Hfa) 1 puff QID INH Last administered on 10:04; Admin Dose 1 PUFF; Start 08/14/16 at 09:00 Lorazepam (Ativan) 1 mg HS PRN PO insomnia; Start 08/14/16 at 21:00 Bisacodyl (Dulcolax) 10 mg DAILY PRN PO CONSTIPATION Last administered on 15:59; Admin Dose 10 MG; Start 08/14/16 at 14:00 Heparin Sodium (Porcine) (Heparin Flush (100 Units/ml)) 500 unit ONCE ONCE CATHETER ; Start 08/15/16 at 16:00; Stop 08/15/16 at 16:01 NANO JENKINS M.D. Aug 15, 2016 15:57
--- NOTE | 2016-08-16 07:34 | DS ---
DATE OF ADMISSION: 08/14/2016 DATE OF DISCHARGE: 08/15/2016 CONSULTANTS: 1. Gas Shovel Operator 2. Porter Baggage 3. Oncologist PROCEDURE: Ultrasound-guided thoracocentesis with removal of 1.25 L of serous fluid. DISCHARGE DIAGNOSES: 1. Left hemithorax. 2. Left-sided pleural effusion. 3. Metastatic orr-eanlv-sgtt lung cancer. 4. Recurrent pleural effusion. 5. History of deep venous thrombosis. 6. Anemia of chronic disease. 7. Dyslipidemia. 8. History of glaucoma. HOSPITAL COURSE: This is a 76-year-old female with known history of stage IV adenocarcino ma of the lung who was undergoing chemotherapy with Dr. Quiñones, malignant pleural effusion, dyslipide [place], glaucoma, anemia of chronic disease who has been having shortness of breath x1 week. The patie nt is status post thoracocentesis outpatient, but thought it would get better. She had worsening of her breathing status and pleuritic pain and dizziness. She underwent PleurX catheter or VATS proce dure at this time secondary to multiple occasions of malignant lung cancer. The patient has been hernandez ving chemotherapy as outpatient. Her last chemo was 3 weeks ago and scheduled for repeat of chemoth erapy on 08/16/2016. Upon arrival to emergency room, the patient's chest x-ray showed right pleural effusion. The patient was set up for left-sided pleural effusion, and patient was set up for ultra sound-guided thoracocentesis in which approximately 1.25 L of serous fluid was aspirated and sent to the laboratory. Gas Shovel Operator and sanitarian aide/oncologist were consulted, and the patient has been continued on her home medication. Her blood pressure has been stable 118/59, temperature 98.2, pul se 85, respires 18, blood pressure 93%. In regard to her anemia, the patient has been continued on folic acid. She has been on chronic pain medication via Dilaudid and [place] which has caused her to have constipation. She has been treated on that during the course of hospitalization. At this time , the patient is cleared by the pulmonology to be discharged home with a close followup with the pul imitation marble mechanic and sanitarian aide/oncologist. The patient will be set up to continue with her chemotherap y as outpatient. MEDICATIONS: 1. Albuterol sulfate. 2. Combivent. 3. Aspirin. 4. Flonase. 5. Folic acid. 6. Lorazepam. 7. Singular. ALLERGIES: CODEINE. CONDITION AT TIME OF DISCHARGE: Stable. LABORATORIES: Sodium 136, potassium 3.9, chloride 99, bicarbonate 26, BUN 18, creatinine 0.70, gluc ose 94, calcium 8.7. TSH 6.70, free T4 0.97. WBC 11, hemoglobin 11.3, hematocrit 33.9, MCV 81, ladarius telets 339. CONDITION AT TIME OF DISCHARGE: Stable. Dictated By: ARIAN ANDERSON MD PN/NTS Conf#: [id number] DID#: [id number] CC: [facility];*EndCC*
== END 2016-08-15 17:16 | disposition home or self-care (01) | DRG 181 ==
LOC: E/R 18:57 → TEL 08-14 00:26
PROVIDERS: ADMIT Student in an Organized Health Care Education/Training Program; ATTEND Student in an Organized Health Care Education/Training Program
PROC: 0W9B3ZZ Drainage of Left Pleural Cavity, Percutaneous Approach (ICD-10-PCS; principal; 2016-08-14)
DX: C34.90 Malignant neoplasm of unspecified part of unspecified bronchus or lung (principal); J91.0 Malignant pleural effusion; R64 Cachexia; D63.8 Anemia in other chronic diseases classified elsewhere; J95.811 Postprocedural pneumothorax; E78.5 Hyperlipidemia, unspecified; H40.9 Unspecified glaucoma; Z86.718 Personal history of other venous thrombosis and embolism; Z79.01 Long term (current) use of anticoagulants; Z85.3 Personal history of malignant neoplasm of breast; Z68.20 Body mass index [BMI] 20.0-20.9, adult
CPT/HCPCS: 71010; 76942; 80048; 80053; 83735; 84100; 84439; 84443; 84484; 85025; 85610; 85730; 87070; 87102; 87116; 88104; 88305; 93005; J1170; J1642; J2060; J2270; J2405; J7030

== ENCOUNTER 2016-12-12 18:53 | Inpatient (IN) | payer OTHER, MEDICAID ==
[~2016-12-12] VITALS: Ht 160 cm; Wt 53.8 kg
[~2016-12-12 18:53] MED LIST changes: +ALBU2.5V3 NEB; +FLUT9.9S NASAL; -MORP30TA3 PO; -POLY17PO6 PO
--- NOTE | 2016-12-12 19:47 | ERA ---
ER Documentation Chief Complaint Date/Time DATE: 12/12/16 TIME: 19:46 Chief Complaint Shortness of breath HPI The patient is a 76-year-old female, presenting to the ER because of recurrent dyspnea. She saw her oncologist 3 days ago after the PET scan did not show left pleural effusion. She was advised to go to the ER however she did not go until today. She had similar symptoms previously and already had for left thoracentesis. She denies fever, chills, neck pain, chest pain, abdominal pain , vomiting, dysuria, diarrhea. She does not smoke nor drink Past medical history: History of metastatic non-small cell carcinoma, dyslipidemia, glaucoma Past surgical history: Appendectomy, Port-A-Cath ROS All systems reviewed and are negative except as per history of present illness. Medications Home Meds Reported Medications Montelukast Sodium* (Montelukast Sodium*) 10 Mg Tablet, 10 MG PO QHS, #30 TAB 12/12/16 Docusate Sodium* (Doc-Q-Lace*) 100 Mg Capsule, 100 MG PO BID Y for CONSTIPATION , CAP 12/12/16 Aspirin* (Aspirin* EC) 81 Mg Tablet.dr, 81 MG PO DAILY, TAB 12/12/16 Omeprazole* (Omeprazole*) 20 Mg Capsule.dr, 20 MG PO DAILY, #30 CAP 12/12/16 Lorazepam* (Lorazepam*) 1 Mg Tablet, 1 MG PO HS Y for SLEEP, #30 TAB 08/13/16 Fluticasone Propionate (Flonase Allergy Relief) 9.9 Ml [place].susp, 1 SPRAY NASAL DAILY, #1 BOTTLE TO EACH NOSTRIL 08/13/16 Folic Acid* (Folic Acid*) 1 Mg Tablet, 1 MG PO DAILY, TAB 03/23/15 Discontinued Reported Medications Albuterol Sulfate* (Albuterol Sulfate* Neb) 0.083%-3 Ml Neb, 2.5 MG NEB PRN Y for WHEEZING AND SOB, #30 VIAL 08/13/16 Aspirin* (Aspirin* Chew) 81 Mg Tab.chew, 81 MG PO DAILY, TAB.CHEW 03/23/15 Montelukast Sodium* (Montelukast Sodium*) 5 Mg Tab.chew, 5 MG PO HS, TAB.CHEW 03/23/15 Discontinued Scripts Albuterol/Ipratropium* (Combivent Respimat*) 20-100 Mcg/Inh - 4 Gm Aer.w.adap, 1 PUFF INHALATION QID, #1 INHALER Prov:ARIAN ANDERSON MD 05/04/16 Allergies Allergies: Coded Allergies: codeine (Verified Allergy, Unknown, 12/12/16) PMhx/Soc History of Surgery: Yes (nasal sx(deviated septum), L breast lumpectomy, ovarian sx, appendectomy) Anesthesia Reaction: No Hx Neurological Disorder: No Hx Respiratory Disorders: Yes (left lung mass) Hx Cardiac Disorders: No Hx Psychiatric Problems: No Hx Miscellaneous Medical Probl: Yes (stage 4 cancer primary breast) Hx Alcohol Use: No Hx Substance Use: No Hx Tobacco Use: No Physical Exam Vitals Vital Signs Date Time Temp Pulse Resp B/P Pulse Ox O2 Delivery O2 Flow Rate FiO2 12/12/16 19:09 98.3 72 20 129/74 97 Physical Exam Const: No acute distress. Head: Atraumatic. Eyes: Normal Conjunctiva. ENT: Normal External Ears, Nose and Mouth. Neck: Full range of motion. No meningismus. Resp: Decreased breath sounds on left lungs, no wheezes Cardio: Regular rate and rhythm, no murmurs. Abd: Soft, non distended, normal bowel sounds, non tender. Skin: No petechiae or rashes. Back: No midline or flank tenderness. Ext: No cyanosis, or edema. Neur: Awake and alert. No focal deficit Psych: Normal Mood and Affect. Result Diagram: 12/12/16202312/12/162023 Results 24 hrs Laboratory Tests Test 12/12/16 20:24 White Blood Count 9.010^3/ul Red Blood Count 4.5610^6/ul Hemoglobin 12.4g/dl Hematocrit 38.4% Mean Corpuscular Volume 84.2fl Mean Corpuscular Hemoglobin 27.2pg Mean Corpuscular Hemoglobin Concent 32.3g/dl Red Cell Distribution Width 13.7% Platelet Count 23907^3/UL Mean Platelet Volume 9.1fl Neutrophils % 68.5% Lymphocytes % 17.7% Monocytes % 12.0% Eosinophils % 1.2% Basophils % 0.4% Nucleated Red Blood Cells % 0.0/100WBC Neutrophils # 6.210^3/ul Lymphocytes # 1.610^3/ul Monocytes # 1.110^3/ul Eosinophils # 0.110^3/ul Basophils # 0.010^3/ul Nucleated Red Blood Cells # 0.010^3/ul Prothrombin Time 12.8Sec Prothrombin Time Ratio 1.0 INR International Normalized Ratio 0.96 Activated Partial Thromboplast Time 28.7Sec Sodium Level 141mmol/L Potassium Level 3.9mmol/L Chloride Level 110mmol/L Carbon Dioxide Level 25mmol/L Anion Gap 10 Blood Urea Nitrogen 19mg/dl Creatinine 0.66mg/dl Glucose Level 125mg/dl Calcium Level 9.1mg/dl Procedures/[place] [address] Radiology Main Line: [phone] DIAGNOSTIC IMAGING REPORT Patient: LANIE SEGURA : 1940 Age: 76 Sex: F MR #: [id number] DOS: 12/12/161952 Ordering MD: DARI EDGAR MD Location: E/R Room/Bed: PROCEDURE: CHEST 1VW CLINICAL INDICATION: Shortness of breath TECHNIQUE: Single frontal view of the chest was obtained COMPARISON: 08/14/2016 FINDINGS: Stable right chest wall port catheter. Stable calcifications projecting over the left chest and left axillary clips. The cardiac size is normal. Aortic vascular calcifications are demonstrated. There is no pulmonary vascular congestion. Previously demonstrated pneumothorax is now refilled with left pleural fluid with associated atelectasis. The right lung is clear. Mild degenerative changes of the visualized osseous structures are visualized. IMPRESSION: 1. Previously demonstrated pneumothorax is now refilled with left pleural fluid. 2. Atherosclerosis. RPTAT:PP .Praveen Patel MD, MD Date Time Electronically viewed and signed by .Praveen Patel MD, on 12/12/2016 20:31 .V/ CC: DARI EDGAR MD EKG: Read by emergency physician Rate/Rhythm: Normal Sinus Rhythm 69 beats/min QRS, ST, T-waves: No ST elevation, no T inversion Impression: Normal EKG MEDICAL MAKING DECISION: The patient is a 76-year-old female, presenting with recurrent left pleural effusion, most likely due to non-small cell lung carcinoma. The differential diagnoses considered include but are not limited to recurrent lung carcinoma, empyema, asthma, COPD, pneumonia, pulmonary embolus, pleural effusion, congestive heart failure. Departure Diagnosis: Primary Impression: Recurrent left pleural effusion Condition: Stable Comments I discussed the findings with the patient. I discussed the patient with the on- call hospitalist Dr. Weir who was made aware of the lab, the treatment, the patient condition. The patient is admitted to telemetry at night. She would have left thoracentesis by interventional radiologist in the morning The patient's blood pressure was elevated (>120/80) but appears stable without evidence of hypertension emergency or urgency. The patient was counseled about the risks of hypertension and urged to pursue outpatient monitoring and therapy within a week with their primary care physician. DARI EDGAR MD December 12, 2016 19:47
--- NOTE | 2016-12-12 20:31 | RADRPT ---
PROCEDURE: CHEST 1VW CLINICAL INDICATION: Shortness of breath TECHNIQUE: Single frontal view of the chest was obtained COMPARISON: 08/14/2016 FINDINGS: Stable right chest wall port catheter. Stable calcifications projecting over the left chest and lef t axillary clips. The cardiac size is normal. Aortic vascular calcifications are demonstrated. There is no pulmonary vascular congestion. Previously demonstrated pneumothorax is now refilled with left pleural fluid with associated atelect asis. The right lung is clear. Mild degenerative changes of the visualized osseous structures are visualized. IMPRESSION: 1. Previously demonstrated pneumothorax is now refilled with left pleural fluid. 2. Atherosclerosis. RPTAT:PP .Praveen Patel MD, Date Time Electronically viewed and signed by .Praveen Patel MD, on 12/12/2016 20:31 .V/
[2016-12-12 20:34] LABS: ADD SCAN DIFF NO
[2016-12-12 20:36] LABS: BASOPHILS % 0.4 % (0.0-2.0); EOSINOPHILS # 0.1 10^3/ul (0.0-0.5); EOSINOPHILS % 1.2 % (0.0-7.0); HEMATOCRIT 38.4 % (37.0-47.0); HEMOGLOBIN 12.4 g/dl (12.0-16.0); LYMPHOCYTES # 1.6 10^3/ul (0.8-2.9); LYMPHOCYTES % 17.7 % (15.0-51.0); MEAN CORPUSCULAR HEMOGLOBIN 27.2 pg (29.0-33.0); MEAN CORPUSCULAR HGB CONC 32.3 g/dl (32.0-37.0); MEAN CORPUSCULAR VOLUME 84.2 fl (82.0-101.0); MEAN PLATELET VOLUME 9.1 fl (7.4-10.4); MONOCYTE # 1.1 10^3/ul (0.3-0.9); NEUTROPHIL # 6.2 10^3/ul (1.6-7.5); NEUTROPHILS % 68.5 % (39.0-77.0); PLATELET COUNT 387 10^3/UL (140-415); RED BLOOD COUNT 4.56 10^6/ul (4.20-5.40); RED CELL DISTRIBUTION WIDTH 13.7 % (11.5-14.5)
[2016-12-12] MEDS ORDERED: OMEP20CA16 PO (20:49)
[2016-12-12] MEDS ORDERED: DOCU100C26 PO (20:49)
[2016-12-12] MEDS ORDERED: ASPI-664 PO (20:49)
[2016-12-12 20:51] LABS: INR 0.96; PROTIME 12.8 Sec (12.2-14.2)
[2016-12-12] MEDS ORDERED: MONT10TA24 PO (20:51)
[2016-12-12 20:52] LABS: PARTIAL THROMBOPLASTIN TIME 28.7 Sec (25.0-35.0); POTASSIUM 3.9 mmol/L (3.5-5.1)
[2016-12-12 20:55] LABS: CALCIUM 9.1 mg/dl (8.4-10.2); CREATININE 0.66 mg/dl (0.44-1.00)
[2016-12-12] MEDS ORDERED: NACL 0.9% 3 ML SYG IV SCH (21:30)
[2016-12-12] MEDS ORDERED: ONDANSETRON 4 MG INJ IV PRN (21:30)
[2016-12-12] MEDS ORDERED: BISACODYL (EC) 5 MG TAB PO PRN (21:30)
[2016-12-12] MEDS ORDERED: DOCUSATE SODIUM 100 MG CAP PO PRN (21:30)
[2016-12-12 22:10] VITALS: TEMP 98.1
[2016-12-12 22:11] LABS: HEMATOCRIT 36.3 % (37.0-47.0); HEMOGLOBIN 11.9 g/dl (12.0-16.0)
[2016-12-12 22:42] VITALS: PULSE 68
[2016-12-12 22:45] VITALS: Ht 160 cm; Wt 53.8 kg
[2016-12-12] MEDS: LORAZEPAM 0.5 MG TAB PO PRN (23:08)
[2016-12-12] MEDS: HYDROCODONE/APAP (5/325) TAB PO PRN (23:08)
--- NOTE | 2016-12-12 23:36 | HP ---
Date/Time of Note Date/Time of Note DATE: 12/12/16 TIME: 23:36 Assessment/Plan VTE Prophylaxis VTE Prophylaxis Intervention: SCD's Assessment/Plan Chief Complaint/Hosp Course This is a 76-year-old female being admitted to telemetry floor for: 1. Malignant pleural effusion - will admit the patient for observation to telemetry, thoracentesis with cytology ordered, consult pulmonology, respiratory therapy prn, 2. Non-small cell CA stage IV -currently being followed by Dr. reginald mcneil of hematology. She is due for an appointment on Monday. Consider consultation. 3. History of DVT: At the current time put patient on SCDs and consider putting on heparin subcu after thoracentesis. 4. Anemia of chronic disease - monitor h/h, transfuse if hgb < 8 g/dL, will hold daily aspirin for now until thoracentesis performed. 5. DVT and GI prophylaxis: SCDs, Protonix Problems: HPI/ROS Admit Date/Time Admit Date/Time December 12, 2016 at 21:20 Hx of Present Illness Chief complaint: Shortness of breath The patient is a 76-year-old female, presenting to the ER because of recurrent dyspnea. Patient states that approximately 2 weeks ago she has been noticing with increasing worsening of dyspnea. She also has had a dry cough for approximately a week. She has had several similar symptoms in the past and each time when she came in she was found to have a pleural effusion. She has had a previous for thoracentesis in the past. She denies fever, chills, neck pain, chest pain, abdominal pain, vomiting, dysuria, diarrhea. She does not smoke nor drink Allergies: Codeine Medications: See ART TRINH Const: As per HPI Eyes : No pain discharge or redness or change in visual acuity ENT: No pain, sore throat, congestion, congestion, dysphagia or discharge Respiratory: As per HPI Cardiovascular: No chest pain, palpitation, PND, or edema GI : no change in appetite, abdominal pain, nausea, vomiting, diarrhea, constipation, or change in the color his stool Genitourinary: No dysuria, hematuria, flank pain , discharge or CVA tenderness Musculoskeletal: No joint pain, back pain, neck pain, restricted range of motion in neck or joints Skin: No rash, bruising or hives Neuro: No headache, dizziness, syncope, seizure, focal weakness Endocrine: No polyuria, polydipsia, temperature intolerance Psych: No hallucination, depression, anxiety or suicidal ideation PMH/Family/Social Past Medical History Malignant pleural effusion recurrent, stage IV adenocarcinoma of the lungs, glaucoma, anemia of chronic disease, remote history of DVT, breast cancer Past Surgical History Left lumpectomy, appendectomy, tonsillectomy, uterine cyst removal, multiple biopsies, s/p thoracentesis 4 Family History Significant Family History: no pertinent family hx Social History Alcohol Use: none Smoking Status: Former smoker Drug Use: none Exam/Review of Systems Vital Signs Vitals Vital Signs Date Time Temp Pulse Resp B/P Pulse Ox O2 Delivery O2 Flow Rate FiO2 12/12/16 22:42 68 12/12/16 22:10 98.1 26 140/57 98 Room Air Exam Exam General: This is a pleasant 76-year-old female who is laying in bed currently in no acute distress. HEENT: Atraumatic, normocephalic. The pupils are equal, round and reactive. Extraocular motor are intact Neck: Supple with full range of motion. No rigidity or meningismus Chest: Nontender Lungs: Coarse breath sounds over the left lung tomlin, good aeration, no acute respiratory distress. Heart: Normal S1-S2, Regular rhythm and rate. No murmur, S3, or S4 Abdomen: Soft , nontender, nondistended , bowel sounds are present. No guarding no rebound tenderness , No masses or organomegaly. Extremities: Normal to inspection, no edema no cyanosis Neurologic: Normal mental status, speech normal, cranial nerves II through XII are intact, motor and sensory are intact, no focal weakness Additional Comments EKG Rate/Rhythm: Normal Sinus Rhythm 69 beats/min QRS, ST, T-wave No ST elevation, no T inversion Impression: Normal EKG As per ED documentation. PROCEDURE: CHEST 1VW CLINICAL INDICATION: Shortness of breath TECHNIQUE: Single frontal view of the chest was obtained COMPARISON: 08/14/2016 FINDINGS: Stable right chest wall port catheter. Stable calcifications projecting over the left chest and left axillary clips. The cardiac size is normal. Aortic vascular calcifications are demonstrated. There is no pulmonary vascular congestion. Previously demonstrated pneumothorax is now refilled with left pleural fluid with associated atelectasis. The right lung is clear. Mild degenerative changes of the visualized osseous structures are visualized. IMPRESSION: 1. Previously demonstrated pneumothorax is now refilled with left pleural fluid. 2. Atherosclerosis. RPTAT:PP .Praveen Patel MD, MD Date Time Electronically viewed and signed by .Praveen Patel MD, MD on 12/12/2016 20:31 Labs Result Diagram: 12/12/16219912/12/162023 Medications Medications Current Medications Lorazepam (Ativan) 0.5 mg Q8H PRN PO ANXIETY Last administered on 12/12/16 23: 08; Admin Dose 0.5 MG; Start 12/12/16 at 21:30 Ondansetron HCl (Zofran Inj) 4 mg Q6H PRN IV NAUSEA AND/OR VOMITING; Start at 21:30 Acetaminophen/ Hydrocodone Bitart ([place] (5/325)) 1 tab Q6H PRN PO PAIN LEVEL 4 -6 Last administered on 12/12/16 23:08; Admin Dose 1 TAB; Start 12/12/16 at 21: 30 Docusate Sodium (Colace) 100 mg Q12H PRN PO CONSTIPATION Last administered on 23:08; Admin Dose 100 MG; Start 12/12/16 at 21:30 Bisacodyl (Dulcolax) 5 mg DAILY PRN PO CONSTIPATION; Start 12/12/16 at 21:30 Pantoprazole (Protonix Iv) 40 mg DAILY@06 IV ; Start 12/13/16 at 06:00 GERRY NDIAYE December 12, 2016 23:36
[2016-12-13] VITALS (18 sets, daily range): BP systolic 92–135; BP diastolic 44–98; PULSE 60–72; RESP 16–20
[2016-12-13] MEDS ORDERED: DOCUSATE SODIUM 100 MG CAP PO PRN (05:00)
[2016-12-13] MEDS ORDERED: LORAZEPAM 1 MG TAB PO PRN (05:00)
[2016-12-13] MEDS ORDERED: PANTOPRAZOLE 40 MG INJ IV SCH (06:00)
[2016-12-13 06:52] LABS: ADD SCAN DIFF NO
[2016-12-13 06:58] LABS: BASOPHILS % 0.6 % (0.0-2.0); EOSINOPHILS # 0.1 10^3/ul (0.0-0.5); HEMATOCRIT 36.9 % (37.0-47.0); HEMOGLOBIN 11.9 g/dl (12.0-16.0); LYMPHOCYTES # 1.4 10^3/ul (0.8-2.9); MEAN CORPUSCULAR HEMOGLOBIN 27.4 pg (29.0-33.0); MEAN CORPUSCULAR HGB CONC 32.2 g/dl (32.0-37.0); MEAN CORPUSCULAR VOLUME 84.8 fl (82.0-101.0); MEAN PLATELET VOLUME 9.3 fl (7.4-10.4); MONOCYTES % 15.1 % (0.0-11.0); PLATELET COUNT 348 10^3/UL (140-415); RED BLOOD COUNT 4.35 10^6/ul (4.20-5.40); RED CELL DISTRIBUTION WIDTH 13.9 % (11.5-14.5); WHITE BLOOD COUNT 6.5 10^3/ul (4.8-10.8)
[2016-12-13] MEDS: FLUTICASONE 0.05% 16 GM NAS SPRAY NASAL SCH (08:40)
[2016-12-13] MEDS: FOLIC ACID 1 MG TAB PO SCH (08:40)
[2016-12-13] MEDS: DOCUSATE SODIUM 100 MG CAP PO SCH ×2 (08:46→21:25)
[2016-12-13] MEDS ORDERED: HYDROmorphONE 1 MG/ML SYG IV STA (08:58)
--- NOTE | 2016-12-13 12:14 | CONS ---
DATE OF ADMISSION: 12/12/2016 DATE OF CONSULTATION: 12/13/2016 TYPE OF CONSULTATION: Pulmonary. HISTORY OF PRESENT ILLNESS: This is a pleasant 76-year-old lady with a history of typical lung canc er with recent PET scan evidence of progression from sustained left lung disease to now possible rig ht lung involvement. She will be changed from current immunotherapy to alternative chemotherapy by Dr. Quiñones. In the meantime, she has presented with increasing shortness of breath consistent with w orsening left pleural effusion. In the past, she has had a loculated pleural effusion. Thoracentes is has resulted in loculated pneumothorax. PAST MEDICAL HISTORY: As above. MEDICATIONS: Per chart. ALLERGIES: NONE. SOCIAL HISTORY: Nonsmoker, no alcohol, no history of drug use. FAMILY HISTORY: Noncontributory. SYSTEMS REVIEW: A 14-point review of systems was negative other than that mentioned above. PHYSICAL EXAMINATION: GENERAL: Well-nourished, well-developed lady, comfortable at rest, no acute distress. VITAL SIGNS: Temperature 98, pulse 68, blood pressure 100/50, O2 saturation 96% on 2 L nasal cannul a. NECK: Supple. No JVD or lymphadenopathy. CARDIAC: S1, S2, no added sounds or murmurs. CHEST: Diminished air entry bilaterally. ABDOMEN: Soft, nontender. No guarding or rebound. EXTREMITIES: No cyanosis, clubbing, or edema. NEUROLOGIC: Generalized weakness. LABORATORY DATA: White count 6.5, hemoglobin 11.9, platelets of 348. Chemistry within normal limit s. INR was 0.96. DIAGNOSTIC DATA: Chest x-ray shows left lung opacification. IMPRESSION AND PLAN: Metastatic lung cancer with recurrent left pleural effusion, no evidence of disease in the right kylie g. The patient will require left thoracentesis for symptomatic control. Currently, given the progressi ve disease. I would not encourage ____ pleurodesis as this would require significant decortication and may not achieve desired results. Dictated By: JONI OWEN/JACEY Conf#: [id number] DID#: [id number]
[2016-12-13] MEDS: HYDROCODONE/APAP (5/325) TAB PO PRN (14:57)
[2016-12-13] MEDS: LORAZEPAM 0.5 MG TAB PO PRN (14:57)
--- NOTE | 2016-12-13 15:05 | PN ---
Date/Time of Note Date/Time of Note DATE: 12/13/16 TIME: 14:52 Assessment/Plan VTE Prophylaxis VTE Prophylaxis Intervention: LMWH Lines/Catheters IV [facility] Baldomero Cath Urinary Cath still in place: No Assessment/Plan Assessment/Plan This is a 76-year-old female being admitted to telemetry floor for: 1. Recurrent pleural effusion - * This is thought to be malignant. Patient however notes that on her last cytology there were no malignant cells found in the fluid, and someone might have mentioned to at that fluid occurrence may be secondary to immunotherapy. Regardless patient is to get thoracentesis today. She is however asking for a fluid cytology to be done. 2. Stage IV adenocarcinoma of lung - * Patient is being followed by Dr. Jeter I have discussed with her. Patient is to continue chemotherapy outpatient. She is okay with thoracentesis and fluid cytology. 3. History of DVT: Status post treatment DVT and GI prophylaxis: lovenox, Protonix Subjective 24 Hr Interval Summary Free Text/Dictation Patient remains stable. She continues to have mild shortness of breath. Exam/Review of Systems Vital Signs Vitals Vital Signs Date Time Temp Pulse Resp B/P Pulse Ox O2 Delivery O2 Flow Rate FiO2 12/13/16 12:30 61 12/13/16 10:59 98.2 16 100/53 98 12/13/16 08:00 Nasal Cannula 12/12/16 22:45 2.0 Intake and Output 12/12/16 12/12/16 12/13/16 15:00 23:00 07:00 Intake Total 300 ml Balance 300 ml Exam General: This is a pleasant 76-year-old female who is laying in bed currently in no acute distress. HEENT: Atraumatic, normocephalic. The pupils are equal, round and reactive. Extraocular motor are intact Neck: Supple with full range of motion. No rigidity or meningismus Chest: Nontender Lungs: Coarse breath sounds over the left lung tomlin, with reduced aeration on the left. Patient comfortable with supplemental oxygen. Heart: Normal S1-S2, Regular rhythm and rate. No murmur, S3, or S4 Abdomen: Soft , nontender, nondistended , bowel sounds are present. No guarding no rebound tenderness , No masses or organomegaly. Extremities: Normal to inspection, no edema no cyanosis Neurologic: Normal mental status, speech normal, cranial nerves II through XII are intact, motor and sensory are intact, no focal weakness Results Result Diagram: 12/13/16 0610 12/12/162023 Results 24 hrs Laboratory Tests Test 12/12/16 20:24 12/12/16 22:00 12/13/16 06:10 White Blood Count 9.0 6.5 # Red Blood Count 4.56 4.35 Hemoglobin 12.4 11.9 L 11.9 L Hematocrit 38.4 36.3 L 36.9 L Mean Corpuscular Volume 84.2 84.8 Mean Corpuscular Hemoglobin 27.2 L 27.4 L Mean Corpuscular Hemoglobin Concent 32.3 32.2 Red Cell Distribution Width 13.7 13.9 Platelet Count 387 348 Mean Platelet Volume 9.1 9.3 Neutrophils % 68.5 61.0 Lymphocytes % 17.7 21.0 Monocytes % 12.0 H 15.1 H Eosinophils % 1.2 2.0 Basophils % 0.4 0.6 Nucleated Red Blood Cells % 0.0 0.0 Neutrophils # 6.2 4.0 Lymphocytes # 1.6 1.4 Monocytes # 1.1 H 1.0 H Eosinophils # 0.1 0.1 Basophils # 0.0 0.0 Nucleated Red Blood Cells # 0.0 0.0 Prothrombin Time 12.8 Prothrombin Time Ratio 1.0 INR International Normalized Ratio 0.96 Activated Partial Thromboplast Time 28.7 Sodium Level 141 Potassium Level 3.9 Chloride Level 110 Carbon Dioxide Level 25 Anion Gap 10 Blood Urea Nitrogen 19 Creatinine 0.66 Glucose Level 125 Calcium Level 9.1 Magnesium Level 2.0 Medications Medications Current Medications Lorazepam (Ativan) 0.5 mg Q8H PRN PO ANXIETY Last administered on 12/12/16 23: 08; Admin Dose 0.5 MG; Start 12/12/16 at 21:30 Ondansetron HCl (Zofran Inj) 4 mg Q6H PRN IV NAUSEA AND/OR VOMITING; Start at 21:30 Acetaminophen/ Hydrocodone Bitart ([place] (5/325)) 1 tab Q6H PRN PO PAIN LEVEL 4 -6 Last administered on 12/12/16 23:08; Admin Dose 1 TAB; Start 12/12/16 at 21: 30 Bisacodyl (Dulcolax) 5 mg DAILY PRN PO CONSTIPATION; Start 12/12/16 at 21:30 Fluticasone Propionate (Flonase 0.05% Nasal) 1 spray DAILY NASAL Last administered on 12/13/16 08:40; Admin Dose 1 SPRAY; Start 12/13/16 at 09:00 Folic Acid (Folic Acid) 1 mg DAILY PO Last administered on 12/13/16 08:40; Admin Dose 1 MG; Start 12/13/16 at 09:00 Lorazepam (Ativan) 1 mg HS PRN PO SLEEP; Start 12/13/16 at 05:00 Montelukast Sodium (Singulair) 10 mg QHS PO ; Start 12/13/16 at 21:00 Docusate Sodium (Colace) 100 mg Q12H PO Last administered on 12/13/16 08:46; Admin Dose 100 MG; Start 12/13/16 at 09:30 Pantoprazole (Protonix Tab) 40 mg DAILY@06 PO ; Start 12/14/16 at 06:00 Procedures Procedures PROCEDURE: CHEST 1VW CLINICAL INDICATION: Shortness of breath TECHNIQUE: Single frontal view of the chest was obtained COMPARISON: 08/14/2016 FINDINGS: Stable right chest wall port catheter. Stable calcifications projecting over the left chest and left axillary clips. The cardiac size is normal. Aortic vascular calcifications are demonstrated. There is no pulmonary vascular congestion. Previously demonstrated pneumothorax is now refilled with left pleural fluid with associated atelectasis. The right lung is clear. Mild degenerative changes of the visualized osseous structures are visualized. IMPRESSION: 1. Previously demonstrated pneumothorax is now refilled with left pleural fluid. 2. Atherosclerosis. RPTAT:PP .Praveen Patel MD, Date Time Electronically viewed and signed by .Praveen Patel MD, on 12/12/2016 20:31 .V/ CC: DARI EDGAR MD, BOLATITO M. December 13, 2016 15:04
[2016-12-13] MEDS ORDERED: HYDROmorphONE 1 MG/ML SYG IV SCH (17:23)
[2016-12-13] MEDS ORDERED: LIDOCAINE 1% (MPF) 5 ML VIAL ONE (18:17)
--- NOTE | 2016-12-13 18:28 | RADRPT ---
PROCEDURE: Ultrasound guided thoracentesis CLINICAL INDICATION: Pleural fluid TECHNIQUE: Multiple sonographic images were obtained through the patient's chest. A site in the p darío's left lower chest was selected and marked. The area was prepped and draped in the usual ster ile fashion. 1% lidocaine was utilized. A 19-gauge Yueh needle was advanced into the pleural space and the introducer was connected to a vacuum drainage system. A total of 1200 cc of clear yellow fl uid were drained at the end of the procedure. The patient tolerated the procedure well. The specimen was sent for laboratory evaluation. RPTAT: AA COMPARISON: None FINDINGS: Pleural effusion. RPTAT: AA IMPRESSION: Uncomplicated ultrasound-guided left thoracentesis. Physician Maria T Date Time Electronically viewed and signed by Physician Maria T on 12/13/2016 18:28 /
--- NOTE | 2016-12-13 18:37 | RADRPT ---
PROCEDURE: XR Chest. CLINICAL INDICATION: POST THORA TECHNIQUE: Single frontal view of the chest was obtained. COMPARISON: Chest x-rays from 12/12/2016, 08/14/2016, 08/13/2016, and 05/03/2016 FINDINGS: The left lung is collapsed although the left lung is noted to have a similar appearance after multip le prior left-sided thoracentesis dating back to April 2016, likely due to trapped lung. There is a small residual left pleural effusion. A right-sided Port-A-Cath is again noted. There is a small right pleural effusion, unchanged. The heart size is within normal limits. There is stable mild prominence of interstitial markings in the right lung, likely due to chronic / senescent changes. Surgical clips are again identified in the left axilla consistent with axillary lymph node dissectio n. Dystrophic calcifications are again identified projecting over the left upper lung zone and left axi lla. 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 A follow-up chest x-ray i n 1 hour is recommended for further evaluation. Stable small right pleural effusion. Right-sided Port-A-Cath. These findings were discussed with the nurse taking care of the patient, Norma, over the phone on at 6:34 PM. RPTAT: EE Physician Maria T Date Time Electronically viewed and signed by Physician Maria T on 12/13/2016 18:37 /
[2016-12-13 19:01] LABS: FLUID GLUCOSE < 20 mg/dl; FLUID TYPE THOROCENT
[2016-12-13 19:02] LABS: FLUID TYPE THOROCENT
[2016-12-13] MEDS ORDERED: MONTELUKAST 10 MG TAB PO SCH (21:00)
[2016-12-13 21:21] LABS: FLUID APPEARANCE SLIGHTLY CLOUDY; FLUID TYPE PLEURAL
[2016-12-13 21:24] LABS: FLUID LYMPHOCYTES 19 %; FLUID MONOCYTES 19 %; FLUID NEUTROPHILS 62 %; FLUID RBC EST 4+; FLUID WBC'S 107 /cmm
[2016-12-13] MEDS: HEPARIN 5,000 UNIT/0.5 ML VIAL SC SCH (21:38)
--- NOTE | 2016-12-13 22:13 | CONS ---
Date/Time of Note Date/Time of Note DATE: 12/13/16 TIME: 21:52 Assessment/Plan Assessment/Plan Chief Complaint/Hosp Course 76 yo female with stage IV adenocarcinoma of lung who has progressed through Carboplatin/ Alimpta, Opdivo and now Keytruda. Pt presents with a loculated L pleural effusion and collapsed L lung secondary to progressive disease. -Agree with pulmonary evaluation and thoracentesis with cytology. -pt will need to start new therapy as an outpatient. We have discussed starting Cyramza on a q 3 week basis with Taxotere. Pt is nervous to start chemotherapy but will think about single agent Cyramza for now. Problems: Consultation Date/Type/Reason Admit Date/Time December 12, 2016 at 21:20 Date of Consultation: December 13, 2016 Type of Consultation: oncology Reason for Consultation adenocarcinoma of lung Referring Provider: GERRY NDIAYE of Present Illness 75 yo female who was diagnosed with stage IV adenocarcinoma of lung, (EGFR/ ALK / ROS1 negative) in Apr 2013. At that time she presented to [facility] with SOB and was found to have bilateral pleural effusions. Of note patient does have a h/o of breast cancer greater than 20 years ago that was treated with lumpectomy and radiation followed by 3 months of tamoxifen therapy. For her stage IV lung cancer pt was initially treated with Alimta/ Cisplatin then had stable disease on Alimta alone for almost 2.5 years. She then progressed and was started on Opdivo immunotherapy and then changed to keytruda immunotherapy. She has since had 10 cycles of Keytrudra. Over the past month patient has had progressive shortness of breath from her baseline. Pt is already known to have a collapsed L Lung but a recent PET CT was done which demonstrated a new mass growing in the L Lung as well as the large pleural effusion. Given her progressive shortness of breath, pt presents for palliative thoracentesis. . Subjective hx not possible: pt non-verbal Constitutional: requiring O2 Eyes: no complaints ENT: no complaints Respiratory: cough, pain, pleuritic pain, shortness of breath Cardiovascular: no complaints Gastrointestinal: no complaints Genitourinary: no complaints Musculoskeletal: back pain Neurologic: no complaints Past Medical History h/o breast cancer 20 years ago h/o DVT Family History Significant Family History: no pertinent family hx Social History Alcohol Use: none Smoking Status: Former smoker Drug Use: none Exam/Review of Systems Vital Signs Vitals Vital Signs Date Time Temp Pulse Resp B/P Pulse Ox O2 Delivery O2 Flow Rate FiO2 12/13/16 21:30 98.0 61 101/48 94 12/13/16 20:04 18 12/13/16 18:10 Nasal Cannula 3.0 Intake and Output 12/12/16 12/12/16 12/13/16 15:00 23:00 07:00 Intake Total 300 ml Balance 300 ml Exam Constitutional: alert, oriented Psych: no complaints Head: normocephalic Eyes: nl conjunctiva ENMT: nl external ears & nose Neck: supple Respiratory: diminished breath sounds (decreased breath sounds in L Lung. breath sounds heard on right lung) Cardiovascular: regular rate and rhythm Gastrointestinal: soft Results Result Diagram: 12/13/16 0610 12/12/162023 Results 24 hrs Laboratory Tests Test 12/12/16 22:00 12/13/16 06:10 12/13/16 18:00 Hemoglobin 11.9 L 11.9 L Hematocrit 36.3 L 36.9 L White Blood Count 6.5 # Red Blood Count 4.35 Mean Corpuscular Volume 84.8 Mean Corpuscular Hemoglobin 27.4 L Mean Corpuscular Hemoglobin Concent 32.2 Red Cell Distribution Width 13.9 Platelet Count 348 Mean Platelet Volume 9.3 Neutrophils % 61.0 Lymphocytes % 21.0 Monocytes % 15.1 H Eosinophils % 2.0 Basophils % 0.6 Nucleated Red Blood Cells % 0.0 Neutrophils # 4.0 Lymphocytes # 1.4 Monocytes # 1.0 H Eosinophils # 0.1 Basophils # 0.0 Nucleated Red Blood Cells # 0.0 Magnesium Level 2.0 Body Fluid Type THOROCENT Body Fluid Volume 1000.0 Body Fluid Color BROWN Body Fluid Appearance SLIGHTLY CLOUDY Body Fluid WBC 107 Body Fluid RBC 4+ Body Fluid Neutrophils % 62 Body Fluid Lymphocytes (%) 19 Body Fluid Monocytes % 19 Body Fluid Other Cells (%) Body Fluid Glucose < 20 Body Fluid Total Protein 7.0 Body Fluid Lactate Dehydrogenase Pending Medications Medications Current Medications Lorazepam (Ativan) 0.5 mg Q8H PRN PO ANXIETY Last administered on 12/13/16t 14: 57; Admin Dose 0.5 MG; Start 12/12/16 at 21:30 Ondansetron HCl (Zofran Inj) 4 mg Q6H PRN IV NAUSEA AND/OR VOMITING Last administered on 12/13/16 20:12; Admin Dose 4 MG; Start 12/12/16 at 21:30 Acetaminophen/ Hydrocodone Bitart ([place] (5/325)) 1 tab Q6H PRN PO PAIN LEVEL 4 -6 Last administered on 12/13/16 14:57; Admin Dose 1 TAB; Start 12/12/16 at 21: 30 Bisacodyl (Dulcolax) 5 mg DAILY PRN PO CONSTIPATION; Start 12/12/16 at 21:30 Fluticasone Propionate (Flonase 0.05% Nasal) 1 spray DAILY NASAL Last administered on 12/13/16 08:40; Admin Dose 1 SPRAY; Start 12/13/16 at 09:00 Folic Acid (Folic Acid) 1 mg DAILY PO Last administered on 12/13/16 08:40; Admin Dose 1 MG; Start 12/13/16 at 09:00 Lorazepam (Ativan) 1 mg HS PRN PO SLEEP; Start 12/13/16 at 05:00 Montelukast Sodium (Singulair) 10 mg QHS PO Last administered on 12/13/16 21: 24; Admin Dose 10 MG; Start 12/13/16 at 21:00 Docusate Sodium (Colace) 100 mg Q12H PO Last administered on 12/13/16 08:46; Admin Dose 100 MG; Start 12/13/16 at 09:30 Pantoprazole (Protonix Tab) 40 mg DAILY@06 PO ; Start 12/14/16 at 06:00 Aspirin (Halfprin) 81 mg DAILY PO ; Start 12/14/16 at 09:00 Heparin Sodium (Porcine) (Heparin (5000 Units/0.5 ml)) 5,000 unit BID SC Last administered on 12/13/16 21:38; Admin Dose 5,000 UNIT; Start 12/13/16 at 21:00 NANO JENKINS M.D. December 13, 2016 22:08
[2016-12-14] VITALS (10 sets, daily range): BP systolic 90–135; BP diastolic 43–59; PULSE 60–78; RESP 17–18
[2016-12-14] MEDS ORDERED: PANTOPRAZOLE (EC) 40 MG TAB PO SCH (06:00)
[2016-12-14] MEDS: FOLIC ACID 1 MG TAB PO SCH (08:55)
[2016-12-14] MEDS: FLUTICASONE 0.05% 16 GM NAS SPRAY NASAL SCH (08:55)
[2016-12-14] MEDS ORDERED: ASPIRIN (EC) 81 MG TAB PO SCH (09:00)
[2016-12-14] MEDS ORDERED: NON-FORMULARY/PATIENT OWN MED (Omeprazole* 20 MG) PO SCH (09:00)
[2016-12-14] MEDS: HEPARIN 5,000 UNIT/0.5 ML VIAL SC SCH (09:20)
[2016-12-14] MEDS: DOCUSATE SODIUM 100 MG CAP PO SCH (09:30)
--- NOTE | 2016-12-14 13:16 | RADRPT ---
PROCEDURE: XR Chest 1 View. CLINICAL INDICATION: Pneumothorax follow up TECHNIQUE: AP view of the chest was obtained. COMPARISON: Yesterday. FINDINGS: The heart size is within normal limits. Calcified atherosclerosis is noted in the aorta. Moderate-t o-large left hydropneumothorax is unchanged. Consolidation of the left lung is unchanged. The righ t lung is hyperexpanded. Haziness is noted at the right lung base. Right-sided chest port is stabl e. The osseous structures are stable. Soft tissue calcifications over the left mid and upper chest a re stable. IMPRESSION: Calcified atherosclerosis in the aorta. Stable moderate to large left hydropneumothorax. This may reflect an ex vacuo pneumothorax. Stable consolidation of the near entirety of the left lung. Hyperexpanded right lung. Haziness at the right lung base that may reflect small right pleural effusion. RPTAT: AA .Benson Saez MD, MD Date Time Electronically viewed and signed by .Benson Saez MD, on 12/14/2016 13:15 .P/
--- NOTE | 2016-12-14 13:56 | DS ---
Date/Time of Note Date/Time of Note DATE: 12/14/16 TIME: 13:37 Discharge Summary Admission/Discharge Info Admit Date/Time December 12, 2016 at 21:20 Discharge Date/Time December 14, 2016. . Final Diagnosis 1. Recurrent pleural effusion - * This is thought to be malignant. Patient however notes that on her last cytology there were no malignant cells found in the fluid, and someone might have mentioned to at that fluid reoccurrence may be secondary to immunotherapy. 2. Stage IV adenocarcinoma of lung - * Patient is being followed by Dr. Jeter I have discussed with her. Patient is to continue chemotherapy outpatient. 3. History of DVT: Status post treatment . Patient Condition: Stable Consults Pulmonary Oncology . Hx of Present Illness H&P per admitting physician Chief complaint: Shortness of breath The patient is a 76-year-old female, presenting to the ER because of recurrent dyspnea. Patient states that approximately 2 weeks ago she has been noticing with increasing worsening of dyspnea. She also has had a dry cough for approximately a week. She has had several similar symptoms in the past and each time when she came in she was found to have a pleural effusion. She has had a previous for thoracentesis in the past. She denies fever, chills, neck pain, chest pain, abdominal pain, vomiting, dysuria, diarrhea. She does not smoke nor drink Allergies: Codeine Medications: See MAR . Hospital Course 76 yo female with stage IV adenocarcinoma of lung who has progressed through Carboplatin/ Alimpta, Opdivo and now Keytruda. Pt presents with a loculated L pleural effusion and collapsed L lung secondary to progressive disease. Patient underwent a palliative thoracentesis by ultrasound guidance Dec 13 2016. She tolerated the procedure quite well, and postthoracentesis x-rays are stable. There are chronic abnormalities noted but not requiring intervention. At this point the patient is stable for continued outpatient management. She will however require supplemental oxygen at home because of recurrence of her pleural effusion and the presence of a lung cancer that is not responding to chemo so far. Once this is arranged she will be discharged home in stable condition. Comorbidities were also aggressively managed as per Med records. Patient at this time has been evaluated and examined in detail and is assessed to be in stable condition and ready for discharge. . Home Meds Reported Medications Montelukast Sodium* (Montelukast Sodium*) 10 Mg Tablet, 10 MG PO QHS, #30 TAB 12/12/16 Docusate Sodium* (Doc-Q-Lace*) 100 Mg Capsule, 100 MG PO BID Y for CONSTIPATION , CAP 12/12/16 Aspirin* (Aspirin* EC) 81 Mg Tablet.dr, 81 MG PO DAILY, TAB 12/12/16 Omeprazole* (Omeprazole*) 20 Mg Capsule.dr, 20 MG PO DAILY, #30 CAP 12/12/16 Lorazepam* (Lorazepam*) 1 Mg Tablet, 1 MG PO HS Y for SLEEP, #30 TAB 08/13/16 Fluticasone Propionate (Flonase Allergy Relief) 9.9 Ml [place].susp, 1 SPRAY NASAL DAILY, #1 BOTTLE TO EACH NOSTRIL 08/13/16 Folic Acid* (Folic Acid*) 1 Mg Tablet, 1 MG PO DAILY, TAB 03/23/15 Discontinued Reported Medications Albuterol Sulfate* (Albuterol Sulfate* Neb) 0.083%-3 Ml Neb, 2.5 MG NEB PRN Y for WHEEZING AND SOB, #30 VIAL 08/13/16 Aspirin* (Aspirin* Chew) 81 Mg Tab.chew, 81 MG PO DAILY, TAB.CHEW 03/23/15 Montelukast Sodium* (Montelukast Sodium*) 5 Mg Tab.chew, 5 MG PO HS, TAB.CHEW 03/23/15 Discontinued Scripts Albuterol/Ipratropium* (Combivent Respimat*) 20-100 Mcg/Inh - 4 Gm Aer.w.adap, 1 PUFF INHALATION QID, #1 INHALER Prov:ARIAN ANDERSON MD 05/04/16 Follow-up Plan Patient will follow up with her pulmonary doctor, oncologist, and primary care doctor as previously scheduled. . Primary Care Provider Pilar Moser Time spent on discharge: > 30 minutes Pending Labs Laboratory Tests Test 12/13/16 18:00 Body Fluid Type THOROCENT Body Fluid Volume 1000.0ml Body Fluid Color BROWN Body Fluid Appearance SLIGHTLY CLOUDY Body Fluid WBC 107/cmm Body Fluid RBC 4+ Body Fluid Neutrophils % 62% Body Fluid Lymphocytes (%) 19% Body Fluid Monocytes % 19% Body Fluid Other Cells (%) % Body Fluid Glucose < 20mg/dl Body Fluid Total Protein 7.0g/dl Body Fluid Lactate Dehydrogenase U/L Microbiology Date/Time Source Procedure Growth Status 12/13/16 18:00 Thoracentesis Fluid Gram Stain - Final Resulted 12/13/16 18:00 Thoracentesis Fluid Body Fluid Culture - Preliminary Resulted NGOC HEADLEY December 14, 2016 13:48
--- NOTE | 2016-12-14 13:57 | CONS ---
Date/Time of Note Date/Time of Note DATE: 12/14/16 TIME: 13:49 Assessment/Plan Assessment/Plan Chief Complaint/Hosp Course 76 yo female with stage IV adenocarcinoma of lung who has progressed through Carboplatin/ Alimpta, Opdivo and now Keytruda. Pt presents with a loculated L pleural effusion and collapsed L lung secondary to progressive disease. PT is now s/p thoracentesis -f/u cytology from thoracentesis -Although patient is very hesitant to start chemotherapy, I have been in contact with her insurance who will only approve Cyramza if given in combination with Taxotere. This was explained to the patient who will think about this treatment option Problems: Consultation Date/Type/Reason Admit Date/Time December 12, 2016 at 21:20 Initial Consult Date 12/13/16 Type of Consultation: oncology Reason for Consultation adenocarcinoma of lung, stage IV Referring Provider: GERRY NDIAYE 24 HR Interval Summary Free Text/Dictation pt is s/p thoracentesis. feels better Exam/Review of Systems Vital Signs Vitals Vital Signs Date Time Temp Pulse Resp B/P Pulse Ox O2 Delivery O2 Flow Rate FiO2 12/14/16 12:30 64 12/14/16 11:00 98.2 18 105/43 96 12/14/16 08:44 Nasal Cannula 2.0 Intake and Output 12/13/16 12/13/16 12/14/16 15:00 23:00 07:00 Intake Total 950 ml 400 ml Output Total 1200 ml Balance -250 ml 400 ml Exam Constitutional: alert, oriented Psych: nl mood/affect, no complaints Head: normocephalic Eyes: nl conjunctiva ENMT: nl external ears & nose Neck: non-tender, supple Respiratory: diminished breath sounds (L Lung) Gastrointestinal: soft Musculoskeletal: nl extremities to inspection Results Result Diagram: 12/13/16 0610 12/12/162023 Results 24 hrs Laboratory Tests Test 12/13/16 18:00 Body Fluid Type THOROCENT Body Fluid Volume 1000.0 Body Fluid Color BROWN Body Fluid Appearance SLIGHTLY CLOUDY Body Fluid WBC 107 Body Fluid RBC 4+ Body Fluid Neutrophils % 62 Body Fluid Lymphocytes (%) 19 Body Fluid Monocytes % 19 Body Fluid Other Cells (%) Body Fluid Glucose < 20 Body Fluid Total Protein 7.0 Body Fluid Lactate Dehydrogenase Medications Medications Current Medications Lorazepam (Ativan) 0.5 mg Q8H PRN PO ANXIETY Last administered on 12/13/16 14: 57; Admin Dose 0.5 MG; Start 12/12/16 at 21:30 Ondansetron HCl (Zofran Inj) 4 mg Q6H PRN IV NAUSEA AND/OR VOMITING Last administered on 12/13/16 20:12; Admin Dose 4 MG; Start 12/12/16 at 21:30 Acetaminophen/ Hydrocodone Bitart ([place] (5/325)) 1 tab Q6H PRN PO PAIN LEVEL 4 -6 Last administered on 12/13/16 14:57; Admin Dose 1 TAB; Start 12/12/16 at 21: 30 Bisacodyl (Dulcolax) 5 mg DAILY PRN PO CONSTIPATION; Start 12/12/16 at 21:30 Fluticasone Propionate (Flonase 0.05% Nasal) 1 spray DAILY NASAL Last administered on 12/14/16 08:55; Admin Dose 1 SPRAY; Start 12/13/16 at 09:00 Folic Acid (Folic Acid) 1 mg DAILY PO Last administered on 12/14/16 08:55; Admin Dose 1 MG; Start 12/13/16 at 09:00 Lorazepam (Ativan) 1 mg HS PRN PO SLEEP; Start 12/13/16 at 05:00 Montelukast Sodium (Singulair) 10 mg QHS PO Last administered on 12/13/16 21: 24; Admin Dose 10 MG; Start 12/13/16 at 21:00 Docusate Sodium (Colace) 100 mg Q12H PO Last administered on 12/13/16 08:46; Admin Dose 100 MG; Start 12/13/16 at 09:30 Pantoprazole (Protonix Tab) 40 mg DAILY@06 PO Last administered on 12/14/16 06 :17; Admin Dose 40 MG; Start 12/14/16 at 06:00 Aspirin (Halfprin) 81 mg DAILY PO Last administered on 12/14/16 08:55; Admin Dose 81 MG; Start 12/14/16 at 09:00 Heparin Sodium (Porcine) (Heparin (5000 Units/0.5 ml)) 5,000 unit BID SC Last administered on 12/14/16 09:20; Admin Dose 5,000 UNIT; Start 5/30/17 at 21:00 NANO JENKINS M.D. December 14, 2016 13:57
--- NOTE | 2016-12-14 15:22 | CONS ---
Date/Time of Note Date/Time of Note DATE: 12/14/16 TIME: 15:20 Consult Date/Type/Reason Admit Date/Time December 12, 2016 at 21:20 Initial Consult Date 12/13/16 Type of Consultation: Pulmonary Ordering Provider: GERRY NDIAYE Subjective Patient stable following thoracentesis states her breathing is better Objective Vital Signs Date Time Temp Pulse Resp B/P Pulse Ox O2 Delivery O2 Flow Rate FiO2 12/14/16 15:02 97.8 70 17 135/59 93 12/14/16 08:44 Nasal Cannula 2.0 Intake and Output 12/13/16 12/13/16 12/14/16 14:59 22:59 06:59 Intake Total 950 ml 400 ml Output Total 1200 ml Balance -250 ml 400 ml Exam PHYSICAL EXAMINATION: GENERAL: Well-nourished, well-developed lady, comfortable at rest, no acute distress. VITAL SIGNS: as above NECK: Supple. No JVD or lymphadenopathy. CARDIAC: S1, S2, no added sounds or murmurs. CHEST: Diminished air entry bilaterally. ABDOMEN: Soft, nontender. No guarding or rebound. EXTREMITIES: No cyanosis, clubbing, or edema. NEUROLOGIC: Generalized weakness. Results/Medications Result Diagram: 12/13/16 0610 12/12/162023 Results 24 hrs Laboratory Tests Test 12/13/16 18:00 Body Fluid Type THOROCENT Body Fluid Volume 1000.0 Body Fluid Color BROWN Body Fluid Appearance SLIGHTLY CLOUDY Body Fluid WBC 107 Body Fluid RBC 4+ Body Fluid Neutrophils % 62 Body Fluid Lymphocytes (%) 19 Body Fluid Monocytes % 19 Body Fluid Other Cells (%) Body Fluid Glucose < 20 Body Fluid Total Protein 7.0 Body Fluid Lactate Dehydrogenase Medications Current Medications Lorazepam (Ativan) 0.5 mg Q8H PRN PO ANXIETY Last administered on 12/13/16 14: 57; Admin Dose 0.5 MG; Start 12/12/16 at 21:30 Ondansetron HCl (Zofran Inj) 4 mg Q6H PRN IV NAUSEA AND/OR VOMITING Last administered on 12/13/16 20:12; Admin Dose 4 MG; Start 12/12/16 at 21:30 Acetaminophen/ Hydrocodone Bitart ([place] (5/325)) 1 tab Q6H PRN PO PAIN LEVEL 4 -6 Last administered on 12/13/16 14:57; Admin Dose 1 TAB; Start 12/12/16 at 21: 30 Bisacodyl (Dulcolax) 5 mg DAILY PRN PO CONSTIPATION; Start 12/12/16 at 21:30 Fluticasone Propionate (Flonase 0.05% Nasal) 1 spray DAILY NASAL Last administered on 12/14/16 08:55; Admin Dose 1 SPRAY; Start 12/13/16 at 09:00 Folic Acid (Folic Acid) 1 mg DAILY PO Last administered on 12/14/16 08:55; Admin Dose 1 MG; Start 12/13/16 at 09:00 Lorazepam (Ativan) 1 mg HS PRN PO SLEEP; Start 12/13/16 at 05:00 Montelukast Sodium (Singulair) 10 mg QHS PO Last administered on 12/13/16 21: 24; Admin Dose 10 MG; Start 12/13/16 at 21:00 Docusate Sodium (Colace) 100 mg Q12H PO Last administered on 12/13/16 08:46; Admin Dose 100 MG; Start 12/13/16 at 09:30 Pantoprazole (Protonix Tab) 40 mg DAILY@06 PO Last administered on 12/14/16 06 :17; Admin Dose 40 MG; Start 12/14/16 at 06:00 Aspirin (Halfprin) 81 mg DAILY PO Last administered on 12/14/16 08:55; Admin Dose 81 MG; Start 12/14/16 at 09:00 Heparin Sodium (Porcine) (Heparin (5000 Units/0.5 ml)) 5,000 unit BID SC Last administered on 12/14/16 09:20; Admin Dose 5,000 UNIT; Start 12/13/16 at 21:00 Assessment/Plan Chief Complaint/Hosp Course Assessment 1. Stage IV lung cancer with new evidence of progression on recent PET CT scan 2. Recurrent left pleural effusion status post thoracentesis now with pneumothorax ex vacuo Plan 1. Discharge home with supplemental oxygen 2. Continue hematology oncology recommendations 3. Follow-up with me in 1 month's time. Problems: JONI ORTEGA MD, FCCP December 14, 2016 15:22
== END 2016-12-14 17:00 | disposition home or self-care (01) | DRG 181 ==
LOC: E/R 18:53 → TEL 21:20
PROVIDERS: ADMIT Family Medicine; ATTEND Family Medicine
PROC: 0W9B3ZX Drainage of Left Pleural Cavity, Percutaneous Approach, Diagnostic (ICD-10-PCS; principal; 2016-12-13)
DX: C78.02 Secondary malignant neoplasm of left lung (principal); J91.8 Pleural effusion in other conditions classified elsewhere; J98.19 Other pulmonary collapse; E78.5 Hyperlipidemia, unspecified; H40.9 Unspecified glaucoma; Z85.3 Personal history of malignant neoplasm of breast; Z87.891 Personal history of nicotine dependence
CPT/HCPCS: 36415; 71010; 76942; 80048; 82945; 83615; 83735; 84157; 85014; 85018; 85025; 85610; 85730; 87070; 87102; 87116; 88104; 88305; 89050; 93005; C9113; J1170; J1644; J2405

== ENCOUNTER 2017-02-21 16:35 | Inpatient (IN) | payer OTHER, MEDICAID ==
[~2017-02-21] VITALS: Ht 160 cm; Wt 51.3 kg
[~2017-02-21 16:35] MED LIST changes: -ALBU2.5V3 NEB; +ASPI-664 PO; -ASPI81TA3 PO; +DOCU100C26 PO; -IPRA4AER INHALATION; +MONT10TA24 PO; -MONT5TAB16 PO; +OMEP20CA16 PO
[2017-02-21 17:35] LABS: ABNORMAL IP MESSAGE 1; BASOPHIL # 0.1 10^3/ul (0.0-0.1); BASOPHILS % 0.5 % (0.0-2.0); EOSINOPHILS # 0.1 10^3/ul (0.0-0.5); EOSINOPHILS % 0.4 % (0.0-7.0); HEMATOCRIT 39.7 % (37.0-47.0); HEMOGLOBIN 12.6 g/dl (12.0-16.0); LYMPHOCYTES # 1.3 10^3/ul (0.8-2.9); LYMPHOCYTES % 7.9 % (15.0-51.0); MEAN CORPUSCULAR HEMOGLOBIN 26.8 pg (29.0-33.0); MEAN CORPUSCULAR HGB CONC 31.7 g/dl (32.0-37.0); MEAN CORPUSCULAR VOLUME 84.5 fl (82.0-101.0); MEAN PLATELET VOLUME 9.2 fl (7.4-10.4); MONOCYTES % 12.6 % (0.0-11.0); NEUTROPHIL # 12.6 10^3/ul (1.6-7.5); NEUTROPHILS % 78.3 % (39.0-77.0); PLATELET COUNT 509 10^3/UL (140-415); RED CELL DISTRIBUTION WIDTH 16.2 % (11.5-14.5); WHITE BLOOD COUNT 16.1 10^3/ul (4.8-10.8)
[2017-02-21 17:44] LABS: POSITIVE DIFF @See below
[2017-02-21 17:49] LABS: INR 0.97; PROTIME 12.9 Sec (12.2-14.2)
[2017-02-21 17:50] LABS: PARTIAL THROMBOPLASTIN TIME 27.3 Sec (25.0-35.0)
[2017-02-21 17:53] LABS: ANION GAP 19 (8-16); BLOOD UREA NITROGEN 14 mg/dl (7-20); CALCIUM 9.1 mg/dl (8.4-10.2); CARBON DIOXIDE 26 mmol/L (21-31); CHLORIDE 103 mmol/L (97-110); CREATININE 0.64 mg/dl (0.44-1.00); GLUCOSE 93 mg/dl (70-220); POTASSIUM 4.3 mmol/L (3.5-5.1); SODIUM 144 mmol/L (135-144)
[2017-02-21] MEDS ORDERED: morphine 4 MG/ML VIAL IV STA ×2 (17:59→21:45)
[2017-02-21 18:05] LABS: TROPONIN-I < 0.012 ng/ml (0.00-0.12)
--- NOTE | 2017-02-21 18:19 | RADRPT ---
PROCEDURE: Chest x-ray CLINICAL INDICATION: Chest pain TECHNIQUE: Chest single view COMPARISON: 12/14/2016 FINDINGS: As before there is right IJ Port-A-Cath in place. There is interval complete opacification of the l eft hemithorax consistent with large left pleural effusion with complete collapse of the left lung. The heart is normal in size. There is stable atherosclerotic aortic calcification. There are incr eased reticular markings through the right lung likely reflecting interstitial edema. Small but inc reasing right pleural effusion is seen. Calcified masses are again noted in the left upper and late ral chest. These likely represent soft tissue masses. The bones are osteopenic. IMPRESSION: 1. New increased interstitial markings through the right lung likely reflecting CHF with small righ t pleural effusion 2. Complete opacification of the left hemithorax felt to represent large left pleural effusion with complete collapse the left lung. 3. Stable calcified left chest wall masses. 4. Port-A-Cath RPTAT: HH .Ced Reynolds MD, MD Date Time Electronically viewed and signed by .Ced Reynolds MD, on 02/21/2017 18:18 .W/
[2017-02-21] MEDS ORDERED: KEN25O TOP (18:21)
[2017-02-21] MEDS ORDERED: BENZ-5 PO (18:21)
[2017-02-21] MEDS ORDERED: EST42.5C VAG (18:22)
[2017-02-21] MEDS ORDERED: LACT-9 PO (18:24)
[2017-02-21] MEDS ORDERED: ALBU2.5V3 NEB (18:27)
[2017-02-21] MEDS ORDERED: CALC-72 PO (18:29)
[2017-02-21] MEDS ORDERED: IPRA12.93 INHALATION (18:30)
[2017-02-21] MEDS ORDERED: CLOB60CR2 TOP (18:31)
[2017-02-21] MEDS ORDERED: ALBU18HF INHALATION (18:32)
[2017-02-21] MEDS ORDERED: ONDANSETRON 4 MG INJ IV STA (18:33)
[2017-02-21] MEDS ORDERED: SOD CHLORIDE 0.9% 100 ML ONE (19:15)
[2017-02-21] MEDS ORDERED: IOHEXOL 100 ML ONE (19:16)
[2017-02-21] MEDS ORDERED: SOD CHLORIDE 0.9% 1,000 ML IV ONE ×2 (20:00)
[2017-02-21] MEDS ORDERED: CEFEPIME 2GM/50 ML (PMX) 50 ML IVPB ONE (20:00)
--- NOTE | 2017-02-21 20:55 | RADRPT ---
PROCEDURE: CT ANGIOGRAM CHEST, PULMONARY EMBOLISM PROTOCOL: CLINICAL INDICATION: 73 years of age, female , chest pain. History of lung cancer. Rule out PE .. COMPARISON: Chest CT May 03, 2016 TECHNIQUE: Image acquisition by series (and radiation doses in CTDIvol): 56.34 mGy) Estimated cumulative dose or total ffvy-yypvee-fkqyaxh (DLP) is: 213 mGy-cm. Intravenous Contrast Medium Administered: mL of contrast. Cardiac Gating: None. FINDINGS: CARDIOVASCULAR: Diagnostic quality: Contrast opacification of the pulmonary arterial circulation is adequate for ass essment of pulmonary embolism. Study is not significantly limited by respiratory motion artifact. Pulmonary arteries: No filling defects to suggest pulmonary embolism. Not enlarged. Heart: No interventricular septal deviation. Normal in size. No significant coronary artery calcific ation. No significant valvular calcification. Pericardium: Small pericardial effusion. Thoracic aorta: No significant abnormality. Normal cervical branching. REMAINING CHEST: Medical devices: Indwelling right internal jugular central venous line with tip in right atrium. Thyroid: Normal. Lymph nodes: No supraclavicular, axillary, mediastinal, or hilar lymphadenopathy. 0.9 cm right hilar lymph node is not enlarged by size criteria. Surgical clips left axilla as before. Other mediastinal structures: No significant abnormality. Lung parenchyma: There is a complete consolidation and collapse of the left lung with a no aerated l eft lung remaining concerning for tumor progression. There is patchy consolidation in the right uppe r lobe that is new concerning for pneumonia. Interlobular septal thickening in the right lung may b e due to edema or lymphangitic carcinomatosis. Airways: There is a soft tissue material obliterating the lumen of the left lower lobe bronchus (09/14 09). This is increased from prior exam. There is narrowing and obliteration of left lower lobe bro nchi with the complete consolidation and collapse of the left lung likely due to a combination of in filtration by tumor and post obstruction atelectasis / consolidation. Soft tissue obliteration of t he left lower lobe bronchus and left lung consolidation and collapse are increased from prior exam. Pleura: There is a large left pleural effusion with thick enhancement of the pleural lining greatest at the lung base in keeping with a malignant effusion. Left pleural effusion has increased in size since prior exam. Small right pleural effusion is increased in size since prior exam. Chest wall: Postsurgical changes left anterior superior chest wall with hyperdense material within t he left pectoralis musculature also extending into the left anterior pleural space is unchanged from prior exam. Upper abdomen: No significant abnormality. Musculoskeletal: Sclerosis and contour irregularity of the anterior/anterolateral left first through fifth ribs with fractures associated with density calcification involving the anterolateral left th ird through fifth ribs is similar to prior exam. No new bony abnormality. IMPRESSION: Negative for evidence of acute PE. Dense consolidation and collapse of the left lung with no aerated left lung remaining demonstrates i nterval progression since prior exam. Soft tissue debris obliterating the left lower lobe bronchus likely represents the patient's known tumor and is increased. Left lung consolidation as likely due to a combination of infiltration by tumor and postobstructive atelectasis/consolidation. Large left pleural effusion with thick enhancement of the pleural lining in keeping with a malignant effusion has increased in size. Right upper lobe lung consolidation is concerning for pneumonia and is new. Interlobular septal thickening right lung may be due to a small right pleural effusion that has incr eased in size or lymphangitic carcinomatosis and is new from prior exam. Destructive changes involving left first through fifth ribs with dense calcification in the left nathalie st wall and underlying pleural space is unchanged from prior exam and may be from a prior treatments (for example radiation therapy)/surgery. Recommend correlation with medical history. RPTAT: HCTS Physician Roe Date Time Electronically viewed and signed by Kishor Hernandez Physician on 02/21/2017 20:55 /
[2017-02-21 21:14] VITALS: TEMP 98.7
[2017-02-21] MEDS ORDERED: ONDANSETRON 4 MG INJ IV PRN (22:00)
[2017-02-21] MEDS ORDERED: ACETAMINOPHEN 325 MG TAB PO PRN (22:00)
[2017-02-21] MEDS ORDERED: OXYCODONE/ACETAMINOPHEN (5/325) TAB PO ONE (22:00)
[2017-02-21] MEDS ORDERED: VANCOMYCIN 1 GM (PMX) 250 ML IVPB SCH (22:00)
--- NOTE | 2017-02-21 22:56 | ERA ---
ER Documentation Chief Complaint Date/Time DATE: 02/21/17 TIME: 22:50 Chief Complaint STAGE IV LUNG CA WITH INCREASING SOB, MORE SINCE LAST NIGHT HPI This 76-year-old female presents with increasing shortness of breath the last few days the bigger increased last night. She has a history of lung cancer and is currently on chemotherapy with the last administration several days ago. She has not had any fevers or chills but has had a cough. She has felt a little weaker than usual as well. Has persistent pain and feeling of sinus blockage. ROS All systems reviewed and are negative except as per history of present illness. Medications Home Meds Reported Medications Albuterol Sulfate* (Ventolin HFA*) 18 Gm Hfa.aer.ad, 2 PUFF INHALATION Q6H Y for DIRECTED, #1 INHALER 02/21/17 Clobetasol Propionate* (Clobetasol Propionate*) 60 Gm Cream.gm., 1 APPLIC TOP BID, #1 TUB 02/21/17 Ipratropium [place]* (Atrovent HFA*) 12.9 Gm Aer.w.adap, 2 PUFF INHALATION BID, #1 INHALER 02/21/17 Calcium Carbonate-Vitamin D3 (Calcium 500 + Vit D 200 Caplet) 1 Each Tablet, 1 TAB PO DAILY Y for DIRECTED, TAB 02/21/17 Albuterol Sulfate* (Albuterol Sulfate* Neb) 0.083%-3 Ml Neb, 1.25 MG NEB Q4H Y for WHEEZING AND SOB, #30 VIAL 02/21/17 Lactose-Free Food (ENSURE LIQUID) 237 Ml Liquid, 237 ML PO BID 02/21/17 Estradiol* (Estrace* Vag) 0.01%-42.5GM Vaginal Cream..g., 1 APPLIC VAG DIRECTED, TUB 02/21/17 Benzonatate* (Benzonatate*) 100 Mg Capsule, 100 MG PO Q8H Y for COUGH, CAP 02/21/17 Triamcinolone Acetonide* (Kenalog*) 0.025%-15GM Oint, 1 APPLIC TOP BID, #1 EA 02/21/17 Montelukast Sodium* (Montelukast Sodium*) 10 Mg Tablet, 10 MG PO QHS, #30 TAB 12/12/16 Aspirin* (Aspirin* EC) 81 Mg Tablet.dr, 81 MG PO DAILY, TAB 12/12/16 Omeprazole* (Omeprazole*) 20 Mg Capsule.dr, 20 MG PO DAILY, #30 CAP 12/12/16 Fluticasone Propionate (Flonase Allergy Relief) 9.9 Ml [place].susp, 1 SPRAY NASAL DAILY, #1 BOTTLE TO EACH NOSTRIL 08/13/16 Folic Acid* (Folic Acid*) 1 Mg Tablet, 1 MG PO DAILY, TAB 03/23/15 Discontinued Reported Medications Docusate Sodium* (Doc-Q-Lace*) 100 Mg Capsule, 100 MG PO BID Y for CONSTIPATION , CAP 12/12/16 Lorazepam* (Lorazepam*) 1 Mg Tablet, 1 MG PO HS Y for SLEEP, #30 TAB 08/13/16 Allergies Allergies: Coded Allergies: codeine (Verified Allergy, Unknown, 02/21/17) PMhx/Soc History of Surgery: Yes (LUMPECTOMY .BREAST ,OVARIAN SX,TONSILLECTOMY) Anesthesia Reaction: No Hx Neurological Disorder: No Hx Respiratory Disorders: Yes (LUNG CA) Hx Cardiac Disorders: No Hx Psychiatric Problems: No Hx Miscellaneous Medical Probl: No (anemia ,breast ca.,dvt,thoracentesis) Hx Alcohol Use: No Hx Substance Use: No Hx Tobacco Use: No Smoking Status: Never smoker Physical Exam Vitals Vital Signs Date Time Temp Pulse Resp B/P Pulse Ox O2 Delivery O2 Flow Rate FiO2 02/21/17 21:14 98.7 90 18 127/67 98 Nasal Cannula 4.0 02/21/17 17:34 Nasal Cannula 2 02/21/17 17:34 Nasal Cannula 2.0 02/21/17 16:39 99.2 104 24 140/61 93 Physical Exam Const: [] Mild distress, appears very uncomfortable Head: Atraumatic Eyes: Normal Conjunctiva ENT: Normal External Ears, Nose and Mouth. Neck: Full range of motion..~ No meningismus. Resp: Absent bibasilar breath sounds with decreased basal breath sounds in the left and some midlung rales on the right. Cardio: Regular tachycardia no murmurs Abd: Soft, non tender, non distended. Normal bowel sounds Skin: No petechiae or rashes Back: No midline or flank tenderness Ext: No cyanosis, or edema Neur: Awake and alert and oriented 3, no focal deficit Psych: Normal Mood and Affect Result Diagram: 02/21/17 1720 02/21/17 1720 Results 24 hrs Laboratory Tests Test 02/21/17 17:20 White Blood Count 16.110^3/ul Red Blood Count 4.7010^6/ul Hemoglobin 12.6g/dl Hematocrit 39.7% Mean Corpuscular Volume 84.5fl Mean Corpuscular Hemoglobin 26.8pg Mean Corpuscular Hemoglobin Concent 31.7g/dl Red Cell Distribution Width 16.2% Platelet Count 43211^3/UL Mean Platelet Volume 9.2fl Neutrophils % 78.3% Lymphocytes % 7.9% Monocytes % 12.6% Eosinophils % 0.4% Basophils % 0.5% Nucleated Red Blood Cells % 0.0/100WBC Neutrophils # 12.610^3/ul Lymphocytes # 1.310^3/ul Monocytes # 2.010^3/ul Eosinophils # 0.110^3/ul Basophils # 0.110^3/ul Nucleated Red Blood Cells # 0.010^3/ul Prothrombin Time 12.9Sec Prothrombin Time Ratio 1.0 INR International Normalized Ratio 0.97 Activated Partial Thromboplast Time 27.3Sec Sodium Level 144mmol/L Potassium Level 4.3mmol/L Chloride Level 103mmol/L Carbon Dioxide Level 26mmol/L Anion Gap 19 Blood Urea Nitrogen 14mg/dl Creatinine 0.64mg/dl Glucose Level 93mg/dl Calcium Level 9.1mg/dl Troponin I < 0.012ng/ml Current Medications Medications (Trade) Dose Ordered Sig/Serjio Route PRN Reason Start Time Stop Time Status Last Admin Dose Admin Morphine Sulfate (morphine) 4 mg ONCE STAT IV 02/21/17 17:59 02/21/17 18:00 DC 02/21/17 21:06 Ondansetron HCl (Zofran Inj) 4 mg ONCE STAT IV 02/21/17 18:33 02/21/17 18:34 DC 02/21/17 21:06 IV Flush 10 ml 10 ml STK-MED ONCE .ROUTE 02/21/17 19:15 02/21/17 19:16 DC 02/21/17 20:07 Sodium Chloride 100 ml @ ud STK-MED ONCE .ROUTE 02/21/17 19:15 02/21/17 19:16 DC 02/21/17 20:07 Iohexol 100 ml @ ud STK-MED ONCE .ROUTE 02/21/17 19:16 02/21/17 19:17 DC 02/21/17 20:07 Sodium Chloride 1,000 ml @ 1,000 mls/hr Q1H ONCE IV 02/21/17 20:00 02/21/17 20:59 DC Sodium Chloride 1,000 ml @ 1,000 mls/hr Q1H ONCE IV 02/21/17 20:00 02/21/17 20:59 DC Cefepime HCl (Maxipime 2gm/50 ml (Pmx)) 50 ml @ 100 mls/hr ONCE ONCE IVPB 02/21/17 20:00 02/21/17 20:29 DC Ondansetron HCl (Zofran Inj) 4 mg ER BRIDGE PRN IV NAUSEA AND/OR VOMITING 02/21/17 22:00 02/22/17 21:59 Acetaminophen 650 mg 650 mg ER BRIDGE PRN PO MILD PAIN/FEVER 02/21/17 22:00 02/22/17 21:59 Vancomycin HCl (Vancocin) 250 ml @ 125 mls/hr ONCE IVPB 02/21/17 22:00 02/21/17 23:59 Oxycodone/ Acetaminophen (Percocet (5/ 325)) 1 tab ONCE ONCE PO 02/21/17 22:00 02/21/17 22:01 DC Morphine Sulfate (morphine) 4 mg ONCE STAT IV 02/21/17 21:45 02/21/17 21:46 DC Procedures/MDM Likely pneumonia with sepsis. Diagnosis of sepsis was not made until 2 hours after patient's arrival. She was given cefepime and hydrated with 30 cc/kg of IV fluid. She was also given vancomycin pulmonary embolism seems unlikely because of the patient's symptoms however no evidence of PE on CT. There is evidence of a new pneumonia. She was treated with 4 mg of morphine for pain as well and given Zofran. Patient also has recurring pleural effusions it will likely require drainage. Patient was aware that she has a collapsed left lung. Vital signs did stabilize in the emergency room. She initially did have some tachycardia increased respiratory rate. Has leukocytosis which is uncharacteristic for her and likely result of the pneumonia. Spoke with Dr. Weir will be admitting the patient to telemetry for further evaluation and management. He is aware of the increasing pleural effusions Chest x-ray interpretation: Left lung white out with right lung haziness suspicious for possible infiltrate versus other. No pneumothorax, no acute fractures CT angiogram chest interpretation: No pulmonary aneurysm. Right upper lung pneumonia. Left pleural effusion with collapse of left lung. EKG interpretation: Normal sinus rhythm rate of 99, normal axis, no ST or T- wave changes concerning for acute ischemia cardiac monitor technician interpretation: Initial sinus tachycardia followed by normal sinus rhythm after fluid administration. Critical care time 42 minutes: This includes treatment of pneumonia with sepsis in immunocompromised patient, treatment of unstable vital signs, antibiotic administration, multiple visits the patient's bedside to reassess status, chart reviewed, discussion with patient and admitting doctor. This does not include any billable procedures. Departure Diagnosis: Primary Impression: Sepsis due to pneumonia Additional Impression: Pleural effusion Condition: Serious KIMBERLY WILDER DO Feb 21, 2017 22:56
[2017-02-21 23:00] VITALS: Ht 160 cm; Wt 51.3 kg
[2017-02-22] VITALS (13 sets, daily range): BP systolic 96–124; BP diastolic 52–76; PULSE 72–157; RESP 17–19
[2017-02-22] MEDS ORDERED: NACL 0.9% 3 ML SYG IV SCH (00:30)
[2017-02-22] MEDS ORDERED: ACETAMINOPHEN 325 MG TAB PO PRN (00:30)
[2017-02-22] MEDS: DOCUSATE SODIUM 100 MG CAP PO SCH ×3 (00:30→21:10)
[2017-02-22] MEDS ORDERED: ALBUTEROL 0.083% (NEB) 2.5 MG/3 ML AMP NEB PRN (00:30)
[2017-02-22 00:47] LABS: CREATINE KINASE < 20 IU/L (23-200)
[2017-02-22 00:56] LABS: CK-MB 0.36 ng/ml (0.0-2.4)
[2017-02-22 00:58] LABS: TROPONIN-I < 0.012 ng/ml (0.00-0.12)
[2017-02-22] MEDS: LORAZEPAM 1 MG TAB PO PRN ×2 (00:58→21:47)
[2017-02-22] MEDS ORDERED: NACL 3% FOR INHALATION 15 ML NEBU NEB ONE (01:00)
[2017-02-22] MEDS: GUAIFENESIN/DM (SR) TAB PO SCH ×3 (01:00→21:10)
[2017-02-22] MEDS ORDERED: LEVOFLOXACIN 750MG/D5W (PMX) 150 ML IVPB SCH (01:00)
[2017-02-22] MEDS ORDERED: ALBUTEROL/IPRATROPIUM (NEB) 3 ML AMP HHN PRN (01:00)
[2017-02-22] MEDS ORDERED: VANCOMYCIN IV PER PHARMACY XX SCH (01:00)
--- NOTE | 2017-02-22 05:00 | HP ---
Date/Time of Note Date/Time of Note DATE: 02/22/17 TIME: 04:49 Assessment/Plan VTE Prophylaxis VTE Prophylaxis Intervention: SCD's Lines/Catheters IV [facility]from [facility] Lock Urinary Cath still in place: No Assessment/Plan Chief Complaint/Hosp Course This is a 76-year-old female being admitted to telemetry floor for: #1 pneumonia: Community-acquired versus healthcare acquired. This patient has been treated with antibiotics within the last 90 days, we will treat right now with broad-spectrum coverage initially. Will put the patient on IV vancomycin Levaquin and cefepime. Will check a sputum culture. Will de-escalate antibiotics as per the clinical course. #2 malignant pleural effusion - will order therapeutic thoracentesis, this likely is related to her malignancy. Will consult pulmonology as well. #3 non-small cell CA stage IV -currently being followed by Dr. Quiñones of hematology. Consider consultation #4 history of DVT: At the current time put patient on SCDs and consider putting on heparin subcu after thoracentesis. #5 anemia of chronic disease - monitor h/h, transfuse if hgb < 8 g/dL, will hold daily aspirin for now until thoracentesis performed. #6 DVT and GI prophylaxis: SCDs, Protonix Further treatment strategy will be implemented as per the clinical course. Problems: HPI/ROS Admit Date/Time Admit Date/Time Feb 21, 2017 at 21:44 Hx of Present Illness Chief complaint: Shortness of breath, cough This is 76-year-old female presents with increasing shortness of breath the last few days which increased last night. She has a history of lung cancer and is currently on chemotherapy with the last administration in November. She has not had any fevers or chills but has had a cough. She has felt a little weaker than usual as well. Has persistent pain and feeling of sinus blockage. Patient also states that she feels like it is more difficult for her to breathe on her left side. She currently is being treated with Seranza. She was also treated with antibiotics within the last 90 days for sinus infection Allergies: Codeine Medications: See ART TRINH Const: As per HPI Eyes : No pain discharge or redness or change in visual acuity ENT: No pain, sore throat, congestion, congestion, dysphagia or discharge Respiratory: As per HPI Cardiovascular: No chest pain, palpitation, PND, or edema GI : no change in appetite, abdominal pain, nausea, vomiting, diarrhea, constipation, or change in the color his stool Genitourinary: No dysuria, hematuria, flank pain , discharge or CVA tenderness Musculoskeletal: No joint pain, back pain, neck pain, restricted range of motion in neck or joints Skin: No rash, bruising or hives Neuro: No headache, dizziness, syncope, seizure, focal weakness Endocrine: No polyuria, polydipsia, temperature intolerance Psych: No hallucination, depression, anxiety or suicidal ideation PMH/Family/Social Past Medical History Malignant pleural effusion recurrent, stage IV adenocarcinoma of the lungs, glaucoma, anemia of chronic disease, remote history of DVT, breast cancer Past Surgical History Left lumpectomy, appendectomy, tonsillectomy, uterine cyst removal, multiple biopsies, s/p thoracentesis 5 Family History Significant Family History: no pertinent family hx Social History Alcohol Use: none Smoking Status: Former smoker Drug Use: none Exam/Review of Systems Vital Signs Vitals Vital Signs Date Time Temp Pulse Resp B/P Pulse Ox O2 Delivery O2 Flow Rate FiO2 02/22/17 04:18 79 02/22/17 00:00 98.3 17 119/57 97 02/21/17 23:00 Nasal Cannula 3.0 Exam Exam General: Patient is a very pleasant female in no acute distress HEENT: Atraumatic, normocephalic. The pupils are equal, round and reactive. Extraocular motor are intact Neck: Supple with full range of motion. No rigidity or meningismus Chest: Nontender Lungs: Diminished breath sounds diffusely along the left lung field Heart: Normal S1-S2, Regular rhythm and rate. No overt murmurs appreciated Abdomen: Soft , nontender, nondistended , bowel sounds are present. No guarding no rebound tenderness , No masses or organomegaly. No costovertebral temporal angle mass Extremities: Normal to inspection, no edema no cyanosis Neurologic: Normal mental status, speech normal, cranial nerves II through XII are intact, motor and sensory are intact, no focal weakness Additional Comments PROCEDURE: Chest x-ray CLINICAL INDICATION: Chest pain TECHNIQUE: Chest single view COMPARISON: 12/14/2016 FINDINGS: As before there is right IJ Port-A-Cath in place. There is interval complete opacification of the left hemithorax consistent with large left pleural effusion with complete collapse of the left lung. The heart is normal in size. There is stable atherosclerotic aortic calcification. There are increased reticular markings through the right lung likely reflecting interstitial edema. Small but increasing right pleural effusion is seen. Calcified masses are again noted in the left upper and lateral chest. These likely represent soft tissue masses. The bones are osteopenic. IMPRESSION: 1. New increased interstitial markings through the right lung likely reflecting CHF with small right pleural effusion 2. Complete opacification of the left hemithorax felt to represent large left pleural effusion with complete collapse the left lung. 3. Stable calcified left chest wall masses. 4. Port-A-Cath RPTAT: HH .Ced Reynolds MD, Date Time Electronically viewed and signed by .Ced Reynolds MD, MD on 02/21/2017 18:18 .W/ PROCEDURE: CT ANGIOGRAM CHEST, PULMONARY EMBOLISM PROTOCOL: CLINICAL INDICATION: 73 years of age, female , chest pain. History of lung cancer. Rule out PE.. COMPARISON: Chest CT May 03, 2016 TECHNIQUE: Image acquisition by series (and radiation doses in CTDIvol): 56.34 mGy) Estimated cumulative dose or total thqf-qdqces-jwdshkm (DLP) is: 213 mGy-cm. Intravenous Contrast Medium Administered: mL of contrast. Cardiac Gating: None. FINDINGS: CARDIOVASCULAR: Diagnostic quality: Contrast opacification of the pulmonary arterial circulation is adequate for assessment of pulmonary embolism. Study is not significantly limited by respiratory motion artifact. Pulmonary arteries: No filling defects to suggest pulmonary embolism. Not enlarged. Heart: No interventricular septal deviation. Normal in size. No significant coronary artery calcification. No significant valvular calcification. Pericardium: Small pericardial effusion. Thoracic aorta: No significant abnormality. Normal cervical branching. REMAINING CHEST: Medical devices: Indwelling right internal jugular central venous line with tip in right atrium. Thyroid: Normal. Lymph nodes: No supraclavicular, axillary, mediastinal, or hilar lymphadenopathy. 0.9 cm right hilar lymph node is not enlarged by size criteria. Surgical clips left axilla as before. Other mediastinal structures: No significant abnormality. Lung parenchyma: There is a complete consolidation and collapse of the left lung with a no aerated left lung remaining concerning for tumor progression. There is patchy consolidation in the right upper lobe that is new concerning for pneumonia. Interlobular septal thickening in the right lung may be due to edema or lymphangitic carcinomatosis. Airways: There is a soft tissue material obliterating the lumen of the left lower lobe bronchus (3/109). This is increased from prior exam. There is narrowing and obliteration of left lower lobe bronchi with the complete consolidation and collapse of the left lung likely due to a combination of infiltration by tumor and post obstruction atelectasis / consolidation. Soft tissue obliteration of the left lower lobe bronchus and left lung consolidation and collapse are increased from prior exam. Pleura: There is a large left pleural effusion with thick enhancement of the pleural lining greatest at the lung base in keeping with a malignant effusion. Left pleural effusion has increased in size since prior exam. Small right pleural effusion is increased in size since prior exam. Chest wall: Postsurgical changes left anterior superior chest wall with hyperdense material within the left pectoralis musculature also extending into the left anterior pleural space is unchanged from prior exam. Upper abdomen: No significant abnormality. Musculoskeletal: Sclerosis and contour irregularity of the anterior/ anterolateral left first through fifth ribs with fractures associated with density calcification involving the anterolateral left third through fifth ribs is similar to prior exam. No new bony abnormality. IMPRESSION: Negative for evidence of acute PE. Dense consolidation and collapse of the left lung with no aerated left lung remaining demonstrates interval progression since prior exam. Soft tissue debris obliterating the left lower lobe bronchus likely represents the patient' s known tumor and is increased. Left lung consolidation as likely due to a combination of infiltration by tumor and postobstructive atelectasis/ consolidation. Large left pleural effusion with thick enhancement of the pleural lining in keeping with a malignant effusion has increased in size. Right upper lobe lung consolidation is concerning for pneumonia and is new. Interlobular septal thickening right lung may be due to a small right pleural effusion that has increased in size or lymphangitic carcinomatosis and is new from prior exam. Destructive changes involving left first through fifth ribs with dense calcification in the left chest wall and underlying pleural space is unchanged from prior exam and may be from a prior treatments (for example radiation therapy)/surgery. Recommend correlation with medical history. RPTAT: HCTS Kishor Hernandez Physician Date Time Electronically viewed and signed by Kishor Hernandez Physician on 02/21/2017 20: 55 CS/ Labs Result Diagram: 02/21/17 1720 02/21/17 1720 Medications Medications Current Medications Lorazepam (Ativan) 1 mg QHS PRN PO INSOMNIA Last administered on 02/22/17t 00:58 ; Admin Dose 1 MG; Start 02/22/17 at 00:30 Ondansetron HCl (Zofran Inj) 4 mg Q6H PRN IV NAUSEA AND/OR VOMITING; Start 02/22 at 00:30 Acetaminophen (Tylenol Tab) 650 mg Q6H PRN PO PAIN LEVEL 1-3 OR FEVER; Start at 00:30 Morphine Sulfate (morphine) 2 mg Q4H PRN IV PAIN LEVEL 7-10; Start 02/22/17 at 00:30 Docusate Sodium (Colace) 100 mg Q12 PO ; Start 02/22/17 at 00:30 Bisacodyl (Dulcolax) 5 mg DAILY PO ; Start 02/22/17 at 09:00 Pantoprazole (Protonix Tab) 40 mg DAILY@06 PO ; Start 02/22/17 at 06:00 Benzonatate (Tessalon) 100 mg Q8H PRN PO COUGH; Start 02/22/17 at 00:30 Calcium/Vitamin D (Oyster Shell/ Vit-D (500/200)) 1 tab DAILY PRN PO DIRECTED; Start 02/22/17 at 00:30 Clobetasol Propionate (Temovate 0.05% Cr) 1 applic BID TOP ; Start 02/22/17 at 09 :00 Estradiol (Estrace 0.01% Vaginal Cr) 1 applic DAILY VAG ; Start 02/22/17 at 09:00 Fluticasone Propionate (Flonase 0.05% Nasal) 1 spray DAILY NASAL ; Start at 09:00 Folic Acid (Folic Acid) 1 mg DAILY PO ; Start 02/22/17 at 09:00 Montelukast Sodium (Singulair) 10 mg QHS PO ; Start 02/22/17 at 21:00 Triamcinolone Acetonide (Kenalog 0.025% Oint) 1 applic BID TOP ; Start 02/22/17 at 09:00 Guaifenesin/ Dextromethorphan 1 tab 1 tab BID PO ; Start 02/22/17 at 01:00 Levofloxacin/ Dextrose 150 ml @ 100 mls/hr Q24H IVPB Last administered on t 03:23; Admin Dose 100 MLS/HR; Start 02/22/17 at 01:00 Cefepime HCl 50 ml @ 100 mls/hr Q12 IVPB ; Start 02/22/17 at 09:00 Vancomycin HCl/ Sodium Chloride (Vancocin/NS) 150 ml @ 75 mls/hr Q24H IVPB ; Start 02/22/17 at 23:00 GERRY NDIAYE Feb 22, 2017 05:00
[2017-02-22] MEDS: PANTOPRAZOLE (EC) 40 MG TAB PO SCH (05:30)
[2017-02-22] MEDS: ONDANSETRON 4 MG INJ IV PRN ×3 (05:30→19:28)
[2017-02-22 08:13] LABS: CREATINE KINASE < 20 IU/L (23-200)
[2017-02-22 08:16] LABS: CK-MB 0.37 ng/ml (0.0-2.4)
[2017-02-22 08:24] LABS: TROPONIN-I < 0.012 ng/ml (0.00-0.12)
[2017-02-22] MEDS ORDERED: CEFEPIME 2GM/50 ML (PMX) 50 ML IVPB SCH (09:00)
[2017-02-22] MEDS: ESTRADIOL VAG SCH ×2 (09:00→09:08)
[2017-02-22] MEDS: ALBUTEROL 18 GM INHALER INH PRN (09:08)
[2017-02-22] MEDS: TRIAMCINOLONE ACET 0.025% 15 GM OINT TOP SCH ×2 (09:08→21:11)
[2017-02-22] MEDS: CLOBETASOL 0.05% 15 GM CR TOP SCH ×2 (09:08→21:11)
[2017-02-22] MEDS: IPRATROPIUM (HFA) 12.9 GM INHALER INH SCH ×2 (09:09→21:34)
[2017-02-22] MEDS: FOLIC ACID 1 MG TAB PO SCH (09:09)
[2017-02-22] MEDS: BISACODYL (EC) 5 MG TAB PO SCH (09:09)
[2017-02-22] MEDS: FLUTICASONE 0.05% 16 GM NAS SPRAY NASAL SCH (09:09)
[2017-02-22] MEDS ORDERED: FLUCONAZOLE 200 MG TAB GTB SCH (09:30)
[2017-02-22] MEDS: FLUCONAZOLE 200 MG TAB PO SCH (11:35)
[2017-02-22] MEDS: morphine 2 MG INJ IV PRN ×2 (11:37→19:28)
[2017-02-22] MEDS ORDERED: LIDOCAINE 1% (MPF) 5 ML VIAL ONE (12:17)
--- NOTE | 2017-02-22 12:27 | RADRPT ---
PROCEDURE: US guided left thoracentesis. CLINICAL INDICATION: Shortness of breath. Left pleural effusion. TECHNIQUE: Prior to the procedure, informed consent was obtained. The risks, benefits, and alternatives were e xplained to the patient or the patient's family, including but not limited to bleeding, infection, p ain, visceral or vascular damage, shock, pneumothorax, chest tube placement, air embolism, and . The patient or the patient's family understood the risks and the alternatives and wished to proce ed with the study. Informed written consent was obtained. A procedural pause was performed. The patient's name, date of , and procedure to be performed were verified. Ultrasound of the left hemithorax was performed in the axial and sagittal planes. A left pleural eff usion is noted. Utilizing ultrasound guidance, optimal location for entry to the pleural cavity was ascertained. The overlying skin was prepped and draped in the usual sterile fashion. Approximately 10 ml of 1% Xylocaine was injected locally for pain control. Using ultrasound guidance, a 5-M[place] Yueh catheter was introduced into the left pleural space without difficulty. Fluid was aspirated. COMPARISON: None. FINDINGS: Initial ultrasound demonstrates fluid in the left pleural space. Approximately 1.0 liters of sangui neous fluid was aspirated and sent to the laboratory. IMPRESSION: 1. Satisfactory ultrasound-guided left thoracentesis. RPTAT: QQ .Waldemar Montalvo MD, Date Time Electronically viewed and signed by .Waldemar Montalvo MD, on 02/22/2017 12:27 .R/
--- NOTE | 2017-02-22 13:17 | RADRPT ---
PROCEDURE: XR Chest. CLINICAL INDICATION: Left pleural effusion. Post left thoracentesis. TECHNIQUE: Single frontal view. COMPARISON: 02/21/2017. FINDINGS: The right Port-A-Cath is unchanged with the tip in the cavoatrial junction region. There is a moder ate right pleural effusion, slightly larger than seen previously. Previously noted large left pleur al effusion is now smaller. There is a left pneumothorax measuring approximately 40%. The left kylie g is completely ossified. The heart size is normal. There is calcification in the aorta consistent with atherosclerosis. Otf gical clips are present in the left axilla. Left chest wall calcified masses are once again noted. There is no right pneumothorax. IMPRESSION: 1. Left pneumothorax measuring approximately 40% following left thoracentesis. Call report: A call report of the findings was made to Dr. Wagner on 02/22/2017 at 1240 hours. RPTAT: QQ .Waldemar Montalvo MD, MD Date Time Electronically viewed and signed by .Waldemar Montalvo MD, on 02/22/2017 13:17 .R/
--- NOTE | 2017-02-22 15:17 | PN ---
Date/Time of Note Date/Time of Note DATE: 02/22/17 TIME: 15:16 Assessment/Plan VTE Prophylaxis VTE Prophylaxis Intervention: SCD's Lines/Catheters IV [facility]ter [facility]from [facility] Urinary Cath still in place: No Assessment/Plan Assessment/Plan 76 yo F with known h/o stage 4 lung ca c/b recurrent pleural effusions admitted for SOB from pleural effusion. ? of possible underlying CAP as well PLAN thora today (already done, 1L removed) abx: PO levoflox as pt lives in the community and able to take PO cont other home meds possibly dc in AM depending on how breathing feels Subjective 24 Hr Interval Summary Free Text/Dictation Pt looking forward to her thora later today Exam/Review of Systems Vital Signs Vitals Vital Signs Date Time Temp Pulse Resp B/P Pulse Ox O2 Delivery O2 Flow Rate FiO2 02/22/17 15:12 97.8 97 19 98/52 98 02/22/17 07:48 Nasal Cannula 3.0 Intake and Output 02/21/17 02/21/17 02/22/17 15:00 23:00 07:00 Intake Total 750 ml Balance 750 ml Exam sitting up in bed No L sided breath sounds abd soft no rashes no le edema Results Result Diagram: 02/21/17 1720 02/21/17 1720 Results 24 hrs Laboratory Tests Test 02/21/17 17:20 02/21/17 21:00 02/21/17 23:59 02/22/17 02:07 White Blood Count 16.1 #H Red Blood Count 4.70 Hemoglobin 12.6 Hematocrit 39.7 Mean Corpuscular Volume 84.5 Mean Corpuscular Hemoglobin 26.8 L Mean Corpuscular Hemoglobin Concent 31.7 L Red Cell Distribution Width 16.2 H Platelet Count 509 #H Mean Platelet Volume 9.2 Neutrophils % 78.3 H Lymphocytes % 7.9 L Monocytes % 12.6 H Eosinophils % 0.4 Basophils % 0.5 Nucleated Red Blood Cells % 0.0 Neutrophils # 12.6 H Lymphocytes # 1.3 Monocytes # 2.0 H Eosinophils # 0.1 Basophils # 0.1 Nucleated Red Blood Cells # 0.0 Prothrombin Time 12.9 Prothrombin Time Ratio 1.0 INR International Normalized Ratio 0.97 Activated Partial Thromboplast Time 27.3 Sodium Level 144 Potassium Level 4.3 Chloride Level 103 Carbon Dioxide Level 26 Anion Gap 19 H Blood Urea Nitrogen 14 Creatinine 0.64 Glucose Level 93 Calcium Level 9.1 Troponin I < 0.012 < 0.012 Lactic Acid Level 1.4 1.8 1.0 Creatine Kinase < 20 L Creatine Kinase Index Creatinine Kinase MB (Mass) 0.36 Test 02/22/17 07:12 Creatine Kinase < 20 L Creatine Kinase Index Creatinine Kinase MB (Mass) 0.37 Troponin I < 0.012 Medications Medications Current Medications Lorazepam (Ativan) 1 mg QHS PRN PO INSOMNIA Last administered on 02/22/17 00:58 ; Admin Dose 1 MG; Start 02/22/17 at 00:30 Ondansetron HCl (Zofran Inj) 4 mg Q6H PRN IV NAUSEA AND/OR VOMITING Last administered on 02/22/17 11:34; Admin Dose 4 MG; Start 02/22/17 at 00:30 Acetaminophen (Tylenol Tab) 650 mg Q6H PRN PO PAIN LEVEL 1-3 OR FEVER; Start at 00:30 Morphine Sulfate (morphine) 2 mg Q4H PRN IV PAIN LEVEL 7-10 Last administered on 02/22/17 11:37; Admin Dose 2 MG; Start 02/22/17 at 00:30 Docusate Sodium (Colace) 100 mg Q12 PO Last administered on 02/22/17 09:09; Admin Dose 100 MG; Start 02/22/17 at 00:30 Bisacodyl (Dulcolax) 5 mg DAILY PO Last administered on 02/22/17 09:09; Admin Dose 5 MG; Start 02/22/17 at 09:00 Pantoprazole (Protonix Tab) 40 mg DAILY@06 PO Last administered on 02/22/17 05: 30; Admin Dose 40 MG; Start 02/22/17 at 06:00 Benzonatate (Tessalon) 100 mg Q8H PRN PO COUGH; Start 02/22/17 at 00:30 Calcium/Vitamin D (Oyster Shell/ Vit-D (500/200)) 1 tab DAILY PRN PO DIRECTED; Start 02/22/17 at 00:30 Clobetasol Propionate (Temovate 0.05% Cr) 1 applic BID TOP Last administered on 02/22/17 09:08; Admin Dose 1 APPLIC; Start 02/22/17 at 09:00 Estradiol (Estrace 0.01% Vaginal Cr) 1 applic DAILY VAG ; Start 02/22/17 at 09:00 Fluticasone Propionate (Flonase 0.05% Nasal) 1 spray DAILY NASAL Last administered on 02/22/17 09:09; Admin Dose 1 SPRAY; Start 02/22/17 at 09:00 Folic Acid (Folic Acid) 1 mg DAILY PO Last administered on 02/22/17 09:09; Admin Dose 1 MG; Start 02/22/17 at 09:00 Montelukast Sodium (Singulair) 10 mg QHS PO ; Start 02/22/17 at 21:00 Triamcinolone Acetonide (Kenalog 0.025% Oint) 1 applic BID TOP Last administered on 02/22/17 09:08; Admin Dose 1 APPLIC; Start 02/22/17 at 09:00 Guaifenesin/ Dextromethorphan 1 tab 1 tab BID PO Last administered on 02/22/17 09:09; Admin Dose 1 TAB; Start 02/22/17 at 01:00 Levofloxacin/ Dextrose 150 ml @ 100 mls/hr Q24H IVPB Last administered on 03:23; Admin Dose 100 MLS/HR; Start 02/22/17 at 01:00 Cefepime HCl 50 ml @ 100 mls/hr Q12 IVPB Last administered on 02/22/17 09:07; Admin Dose 100 MLS/HR; Start 02/22/17 at 09:00 Vancomycin HCl/ Sodium Chloride (Vancocin/NS) 150 ml @ 75 mls/hr Q24H IVPB ; Start 02/22/17 at 23:00 Fluconazole (Diflucan) 200 mg DAILY PO Last administered on 02/22/17 11:35; Admin Dose 200 MG; Start 02/22/17 at 12:00; Stop 02/24/17 at 09:01 KINGSLEY ESPINOSA MD Feb 22, 2017 15:17
--- NOTE | 2017-02-22 16:42 | CONS ---
Date/Time of Note Date/Time of Note DATE: 02/22/17 TIME: 16:32 Assessment/Plan Assessment/Plan Chief Complaint/Hosp Course Assessment 1. Progressive stage IV lung cancer. 2. Possible postobstructive pneumonia. 3. Recurrent left pleural effusion now with loculated pneumothorax. 4. Currently undergoing chemotherapy with Dr. Quiñones Plan 1. Continue antibiotic coverage 2. Continue supplemental O2 3. Hematology oncology recommendations. 4. Likely will need to go home with palliative care. Problems: Consultation Date/Type/Reason Admit Date/Time Feb 21, 2017 at 21:44 Date of Consultation: Feb 22, 2017 Type of Consultation: Pulmonary Hx of Present Illness 76-year-old lady well-known to be seen by myself for many years in the office and in the hospital. She has a history of stage IV lung cancer who is doing relatively well up until 6 months ago when repeat PET scan and CT demonstrated progression of disease. Chemotherapy was switched and she has had significant deterioration in overall health since that time. She presented yesterday with increasing shortness of breath orthopnea PND increasing nasal congestion and discharge. Chest x-ray demonstrated left lung whiteout which she has had in the past. Her last thoracentesis of the left lung was performed 2 months ago. Thoracentesis was performed today 1 L was removed. Post chest x-ray shows loculated pneumothorax which she has had in the past. We have discussed Pleurx catheter in the past. This was deferred given her deteriorating condition and the quality of life she would have with this. She has been under the care of hospice service. As above. Past Medical History Stage IV lung cancer. Social History Alcohol Use: none Smoking Status: Former smoker Drug Use: none Exam/Review of Systems Vital Signs Vitals Vital Signs Date Time Temp Pulse Resp B/P Pulse Ox O2 Delivery O2 Flow Rate FiO2 02/22/17 16:29 86 02/22/17 15:12 97.8 19 98/52 98 02/22/17 07:48 Nasal Cannula 3.0 Intake and Output 02/21/17 02/21/17 02/22/17 14:59 22:59 06:59 Intake Total 750 ml Balance 750 ml Exam GENERAL: Chronically ill-appearing lady appears comfortable at rest VITAL SIGNS: per chart NECK: Supple. No JVD or lymphadenopathy. CARDIAC EXAM: S1, S2. No added sounds or murmurs. CHEST: Diminished air entry both lung bases ABDOMEN: Soft, nontender. No guarding or rebound. EXTREMITIES: No cyanosis, clubbing or edema. NEUROLOGIC: Generalized weakness. No focal deficits. Results Result Diagram: 02/21/17 1720 02/21/17 1720 Results 24 hrs Laboratory Tests Test 02/21/17 17:20 02/21/17 21:00 02/21/17 23:59 02/22/17 02:07 White Blood Count 16.1 #H Red Blood Count 4.70 Hemoglobin 12.6 Hematocrit 39.7 Mean Corpuscular Volume 84.5 Mean Corpuscular Hemoglobin 26.8 L Mean Corpuscular Hemoglobin Concent 31.7 L Red Cell Distribution Width 16.2 H Platelet Count 509 #H Mean Platelet Volume 9.2 Neutrophils % 78.3 H Lymphocytes % 7.9 L Monocytes % 12.6 H Eosinophils % 0.4 Basophils % 0.5 Nucleated Red Blood Cells % 0.0 Neutrophils # 12.6 H Lymphocytes # 1.3 Monocytes # 2.0 H Eosinophils # 0.1 Basophils # 0.1 Nucleated Red Blood Cells # 0.0 Prothrombin Time 12.9 Prothrombin Time Ratio 1.0 INR International Normalized Ratio 0.97 Activated Partial Thromboplast Time 27.3 Sodium Level 144 Potassium Level 4.3 Chloride Level 103 Carbon Dioxide Level 26 Anion Gap 19 H Blood Urea Nitrogen 14 Creatinine 0.64 Glucose Level 93 Calcium Level 9.1 Troponin I < 0.012 < 0.012 Lactic Acid Level 1.4 1.8 1.0 Creatine Kinase < 20 L Creatine Kinase Index Creatinine Kinase MB (Mass) 0.36 Test 02/22/17 07:12 Creatine Kinase < 20 L Creatine Kinase Index Creatinine Kinase MB (Mass) 0.37 Troponin I < 0.012 Medications Medications Current Medications Lorazepam (Ativan) 1 mg QHS PRN PO INSOMNIA Last administered on 02/22/17 00:58 ; Admin Dose 1 MG; Start 02/22/17 at 00:30 Ondansetron HCl (Zofran Inj) 4 mg Q6H PRN IV NAUSEA AND/OR VOMITING Last administered on 02/22/17 11:34; Admin Dose 4 MG; Start 02/22/17 at 00:30 Acetaminophen (Tylenol Tab) 650 mg Q6H PRN PO PAIN LEVEL 1-3 OR FEVER; Start at 00:30 Morphine Sulfate (morphine) 2 mg Q4H PRN IV PAIN LEVEL 7-10 Last administered on 02/22/17 11:37; Admin Dose 2 MG; Start 02/22/17 at 00:30 Docusate Sodium (Colace) 100 mg Q12 PO Last administered on 02/22/17 09:09; Admin Dose 100 MG; Start 02/22/17 at 00:30 Bisacodyl (Dulcolax) 5 mg DAILY PO Last administered on 02/22/17 09:09; Admin Dose 5 MG; Start 02/22/17 at 09:00 Pantoprazole (Protonix Tab) 40 mg DAILY@06 PO Last administered on 02/22/17 05: 30; Admin Dose 40 MG; Start 02/22/17 at 06:00 Benzonatate (Tessalon) 100 mg Q8H PRN PO COUGH; Start 02/22/17 at 00:30 Calcium/Vitamin D (Oyster Shell/ Vit-D (500/200)) 1 tab DAILY PRN PO DIRECTED; Start 02/22/17 at 00:30 Clobetasol Propionate (Temovate 0.05% Cr) 1 applic BID TOP Last administered on 02/22/17 09:08; Admin Dose 1 APPLIC; Start 02/22/17 at 09:00 Estradiol (Estrace 0.01% Vaginal Cr) 1 applic DAILY VAG ; Start 02/22/17 at 09:00 Fluticasone Propionate (Flonase 0.05% Nasal) 1 spray DAILY NASAL Last administered on 02/22/17 09:09; Admin Dose 1 SPRAY; Start 02/22/17 at 09:00 Folic Acid (Folic Acid) 1 mg DAILY PO Last administered on 02/22/17 09:09; Admin Dose 1 MG; Start 02/22/17 at 09:00 Montelukast Sodium (Singulair) 10 mg QHS PO ; Start 02/22/17 at 21:00 Triamcinolone Acetonide (Kenalog 0.025% Oint) 1 applic BID TOP Last administered on 02/22/17 09:08; Admin Dose 1 APPLIC; Start 02/22/17 at 09:00 Guaifenesin/ Dextromethorphan (Mucinex Dm) 1 tab BID PO Last administered on 09:09; Admin Dose 1 TAB; Start 02/22/17 at 01:00 Fluconazole (Diflucan) 200 mg DAILY PO Last administered on 02/22/17 11:35; Admin Dose 200 MG; Start 02/22/17 at 12:00; Stop 02/24/17 at 09:01 Levofloxacin (Levaquin) 750 mg Q48H PO ; Start 02/23/17 at 06:00 JONI ORTEGA MD, [facility] Feb 22, 2017 16:42
[2017-02-22] MEDS: MONTELUKAST 10 MG TAB PO SCH (21:10)
[2017-02-22] MEDS ORDERED: VANCOMYCIN 750 MG in SOD CHLORIDE 0.9% 150 ML IVPB SCH (23:00)
--- NOTE | 2017-02-22 23:47 | CONS ---
Date/Time of Note Date/Time of Note DATE: 02/22/17 TIME: 23:39 Assessment/Plan Assessment/Plan Chief Complaint/Hosp Course #Stage IV adenocarcinoma of lung who has progressed through Carboplatin/ Alimpta , Opdivo and now Keytruda. Now to start on Cyramza single agent as seh could not tolerate TAxol -pt understands that she is terminally ill and that her chemotherapeutic options are limited -pt does have palliative care at home but she still wants to continue with therapy at this time #Loculated pleural effusion -s/p thoracentesis -I do not think pt could have a pleurex catheter but will discuss with pulmonary #Post obstructive PNA -cont antibiotics Problems: (1) Lung malignancy Status: Chronic Qualifiers: Qualified Code: C34.82 - Malignant neoplasm of overlapping sites of left lung (2) Pleural effusion Status: Acute Consultation Date/Type/Reason Admit Date/Time Feb 21, 2017 at 21:44 Date of Consultation: Feb 22, 2017 Type of Consultation: oncology Reason for Consultation metastatic lung cancer, admit for pleural effusion Referring Provider: GERRY NDIAYE Hx of Present Illness 75 yo female who was diagnosed with stage IV adenocarcinoma of lung, (EGFR/ ALK / ROS1 negative) in Apr 2013. At that time she presented to [facility] with SOB and was found to have bilateral pleural effusions. Of note patient does have a h/o of breast cancer greater than 20 years ago that was treated with lumpectomy and radiation followed by 3 months of tamoxifen therapy. For her stage IV lung cancer pt was initially treated with Alimta/ Cisplatin then had stable disease on Alimta alone for almost 2.5 years. She then progressed and was started on Opdivo immunotherapy and then changed to keytruda immunotherapy. She has since had 10 cycles of Keytrudra. Over the past month patient has had progressive shortness of breath from her baseline. Pt is already known to have a collapsed L Lung but a recent PET CT was done which demonstrated a new mass growing in the L Lung as well as the large pleural effusion. Given her progressive shortness of breath, pt was recently started on Taxol/ Cyramza. After 2 cycles of Taxol, she has become extremely fatigued and debilitated. She refuses more chemotherapy with Taxol but wants to proceed with single agent Cyramza. She comes in with SOB and is requesting a thoracentesis. Constitutional: diaphoresis, poor po, requiring O2 Eyes: no complaints Respiratory: cough, pain, pleuritic pain, shortness of breath Cardiovascular: no complaints Gastrointestinal: no complaints Genitourinary: no complaints Musculoskeletal: back pain, bone/joint pain Neurologic: no complaints Past Medical History h/o breast ca h/o DVT Family History Significant Family History: no pertinent family hx Social History Alcohol Use: none Smoking Status: Former smoker Drug Use: none Exam/Review of Systems Vital Signs Vitals Vital Signs Date Time Temp Pulse Resp B/P Pulse Ox O2 Delivery O2 Flow Rate FiO2 02/22/17 19:57 98.2 97 18 114/55 100 02/22/17 19:56 Nasal Cannula 3.0 Intake and Output 02/21/17 02/21/17 02/22/17 15:00 23:00 07:00 Intake Total 750 ml Balance 750 ml Exam Constitutional: alert, frail, oriented Psych: no complaints Head: normocephalic Eyes: nl conjunctiva ENMT: nl external ears & nose Neck: non-tender, supple Respiratory: crackles/rales, diminished breath sounds, other (decreaed BS over the left lung) Gastrointestinal: soft Musculoskeletal: nl extremities to inspection Extremities: normal pulses Results Result Diagram: 02/21/17 1720 02/21/17 1720 Results 24 hrs Laboratory Tests Test 02/21/17 23:59 02/22/17 02:07 02/22/17 07:12 Lactic Acid Level 1.8 1.0 Creatine Kinase < 20 L < 20 L Creatine Kinase Index Creatinine Kinase MB (Mass) 0.36 0.37 Troponin I < 0.012 < 0.012 Medications Medications Current Medications Lorazepam (Ativan) 1 mg QHS PRN PO INSOMNIA Last administered on 02/22/17 21:47 ; Admin Dose 1 MG; Start 02/22/17 at 00:30 Ondansetron HCl (Zofran Inj) 4 mg Q6H PRN IV NAUSEA AND/OR VOMITING Last administered on 02/22/17 19:28; Admin Dose 4 MG; Start 02/22/17 at 00:30 Acetaminophen (Tylenol Tab) 650 mg Q6H PRN PO PAIN LEVEL 1-3 OR FEVER; Start at 00:30 Morphine Sulfate (morphine) 2 mg Q4H PRN IV PAIN LEVEL 7-10 Last administered on 02/22/17 19:28; Admin Dose 2 MG; Start 02/22/17 at 00:30 Docusate Sodium (Colace) 100 mg Q12 PO Last administered on 02/22/17 21:10; Admin Dose 100 MG; Start 02/22/17 at 00:30 Bisacodyl (Dulcolax) 5 mg DAILY PO Last administered on 02/22/17 09:09; Admin Dose 5 MG; Start 02/22/17 at 09:00 Pantoprazole (Protonix Tab) 40 mg DAILY@06 PO Last administered on 02/22/17 05: 30; Admin Dose 40 MG; Start 02/22/17 at 06:00 Benzonatate (Tessalon) 100 mg Q8H PRN PO COUGH; Start 02/22/17 at 00:30 Calcium/Vitamin D (Oyster Shell/ Vit-D (500/200)) 1 tab DAILY PRN PO DIRECTED; Start 02/22/17 at 00:30 Clobetasol Propionate (Temovate 0.05% Cr) 1 applic BID TOP Last administered on 02/22/17 21:11; Admin Dose 1 APPLIC; Start 02/22/17 at 09:00 Estradiol (Estrace 0.01% Vaginal Cr) 1 applic DAILY VAG ; Start 02/22/17 at 09:00 Fluticasone Propionate (Flonase 0.05% Nasal) 1 spray DAILY NASAL Last administered on 02/22/17 09:09; Admin Dose 1 SPRAY; Start 02/22/17 at 09:00 Folic Acid (Folic Acid) 1 mg DAILY PO Last administered on 02/22/17 09:09; Admin Dose 1 MG; Start 02/22/17 at 09:00 Montelukast Sodium (Singulair) 10 mg QHS PO Last administered on 02/22/17 21:10 ; Admin Dose 10 MG; Start 02/22/17 at 21:00 Triamcinolone Acetonide (Kenalog 0.025% Oint) 1 applic BID TOP Last administered on 02/22/17 21:11; Admin Dose 1 APPLIC; Start 02/22/17 at 09:00 Guaifenesin/ Dextromethorphan (Mucinex Dm) 1 tab BID PO Last administered on 8/ 9/17at 21:10; Admin Dose 1 TAB; Start 02/22/17 at 01:00 Fluconazole (Diflucan) 200 mg DAILY PO Last administered on 02/22/17 11:35; Admin Dose 200 MG; Start 02/22/17 at 12:00; Stop 02/24/17 at 09:01 Levofloxacin (Levaquin) 750 mg Q48H PO ; Start 02/23/17 at 06:00 NANO JENKINS M.D. Feb 22, 2017 23:47
[2017-02-23] VITALS (12 sets, daily range): BP systolic 93–115; BP diastolic 54–62; PULSE 81–97; RESP 17–20
[2017-02-23] MEDS: PANTOPRAZOLE (EC) 40 MG TAB PO SCH (05:28)
[2017-02-23] MEDS: LEVOFLOXACIN 750 MG TABLET PO SCH (05:28)
[2017-02-23 08:15] LABS: ABNORMAL IP MESSAGE 1; BASOPHIL # 0.1 10^3/ul (0.0-0.1); BASOPHILS % 0.5 % (0.0-2.0); EOSINOPHILS # 0.1 10^3/ul (0.0-0.5); EOSINOPHILS % 1.1 % (0.0-7.0); HEMATOCRIT 32.8 % (37.0-47.0); HEMOGLOBIN 10.7 g/dl (12.0-16.0); LYMPHOCYTES # 0.8 10^3/ul (0.8-2.9); LYMPHOCYTES % 6.4 % (15.0-51.0); MEAN CORPUSCULAR HEMOGLOBIN 27.1 pg (29.0-33.0); MEAN CORPUSCULAR HGB CONC 32.6 g/dl (32.0-37.0); MEAN PLATELET VOLUME 9.2 fl (7.4-10.4); MONOCYTES % 15.5 % (0.0-11.0); NEUTROPHIL # 9.8 10^3/ul (1.6-7.5); PLATELET COUNT 377 10^3/UL (140-415); RED BLOOD COUNT 3.95 10^6/ul (4.20-5.40); RED CELL DISTRIBUTION WIDTH 15.8 % (11.5-14.5); WHITE BLOOD COUNT 12.9 10^3/ul (4.8-10.8)
[2017-02-23 08:27] LABS: POSITIVE DIFF @See below
[2017-02-23 08:37] LABS: ALBUMIN 2.9 g/dl (3.3-4.9); ALBUMIN/GLOBULIN RATIO 1.11; BILIRUBIN,INDIRECT 0.3 mg/dl (0-1.1); BILIRUBIN,TOTAL 0.3 mg/dl (0.2-1.3); CALCIUM 8.3 mg/dl (8.4-10.2); CREATININE 0.71 mg/dl (0.44-1.00); POTASSIUM 3.9 mmol/L (3.5-5.1); TOTAL PROTEIN 5.5 g/dl (6.1-8.1)
[2017-02-23 08:40] LABS: PARTIAL THROMBOPLASTIN TIME 32.4 Sec (25.0-35.0)
[2017-02-23] MEDS: ONDANSETRON 4 MG INJ IV PRN ×3 (08:41→22:04)
[2017-02-23] MEDS: CALCIUM/VITAMIN D (500/200) TAB PO PRN (08:41)
[2017-02-23] MEDS: DOCUSATE SODIUM 100 MG CAP PO SCH ×2 (08:42→20:51)
[2017-02-23] MEDS: FLUCONAZOLE 200 MG TAB PO SCH (08:42)
[2017-02-23] MEDS: GUAIFENESIN/DM (SR) TAB PO SCH ×2 (08:42→20:51)
[2017-02-23] MEDS: FOLIC ACID 1 MG TAB PO SCH (08:42)
[2017-02-23] MEDS: BISACODYL (EC) 5 MG TAB PO SCH (08:42)
[2017-02-23] MEDS: FLUTICASONE 0.05% 16 GM NAS SPRAY NASAL SCH (08:46)
[2017-02-23] MEDS: ESTRADIOL VAG SCH (08:49)
[2017-02-23] MEDS: CLOBETASOL 0.05% 15 GM CR TOP SCH ×2 (08:50→20:51)
[2017-02-23] MEDS: TRIAMCINOLONE ACET 0.025% 15 GM OINT TOP SCH ×2 (08:50→20:50)
[2017-02-23 08:53] LABS: INR 1.13; PROTIME 14.5 Sec (12.2-14.2); PT RATIO 1.1
[2017-02-23] MEDS: IPRATROPIUM (HFA) 12.9 GM INHALER INH SCH ×2 (11:30→20:50)
--- NOTE | 2017-02-23 13:25 | CONS ---
Date/Time of Note Date/Time of Note DATE: 02/23/17 TIME: 13:24 Consult Date/Type/Reason Admit Date/Time Feb 21, 2017 at 21:44 Initial Consult Date 02/22/17 Type of Consultation: pulm Ordering Provider: GERRY NDIAYE Subjective No significant changes. Patient still has moderate weakness and decreased p.o. intake. No change in respiratory status. Objective Vital Signs Date Time Temp Pulse Resp B/P Pulse Ox O2 Delivery O2 Flow Rate FiO2 02/23/17 12:09 81 02/23/17 11:10 98.5 18 93/60 94 02/23/17 07:55 Nasal Cannula 3.0 Intake and Output 02/22/17 02/22/17 02/23/17 15:00 23:00 07:00 Intake Total 600 ml 400 ml Output Total 1000 ml Balance -400 ml 400 ml Exam GENERAL: Chronically ill-appearing lady comfortable at rest VITAL SIGNS: per chart NECK: Supple. No JVD or lymphadenopathy. CARDIAC EXAM: S1, S2. No added sounds or murmurs. CHEST: Diminished air entry both lung bases. ABDOMEN: Soft, nontender. No guarding or rebound. EXTREMITIES: No cyanosis, clubbing or edema. NEUROLOGIC: Generalized weakness. No focal deficits. Results/Medications Result Diagram: 02/23/1748 02/23/17 0748 Results 24 hrs Laboratory Tests Test 02/23/17 07:48 White Blood Count 12.9 H Red Blood Count 3.95 L Hemoglobin 10.7 L Hematocrit 32.8 L Mean Corpuscular Volume 83.0 Mean Corpuscular Hemoglobin 27.1 L Mean Corpuscular Hemoglobin Concent 32.6 Red Cell Distribution Width 15.8 H Platelet Count 377 # Mean Platelet Volume 9.2 Neutrophils % 76.0 Lymphocytes % 6.4 L Monocytes % 15.5 H Eosinophils % 1.1 Basophils % 0.5 Nucleated Red Blood Cells % 0.0 Neutrophils # 9.8 H Lymphocytes # 0.8 Monocytes # 2.0 H Eosinophils # 0.1 Basophils # 0.1 Nucleated Red Blood Cells # 0.0 Prothrombin Time 14.5 H Prothrombin Time Ratio 1.1 INR International Normalized Ratio 1.13 Activated Partial Thromboplast Time 32.4 Sodium Level 139 Potassium Level 3.9 Chloride Level 104 Carbon Dioxide Level 26 Anion Gap 13 Blood Urea Nitrogen 9 Creatinine 0.71 Glucose Level 81 Calcium Level 8.3 L Total Bilirubin 0.3 Direct Bilirubin 0.00 Indirect Bilirubin 0.3 Aspartate Amino Transf (AST/SGOT) 26 Alanine Aminotransferase (ALT/SGPT) 26 Alkaline Phosphatase 56 Total Protein 5.5 L Albumin 2.9 L Globulin 2.60 Albumin/Globulin Ratio 1.11 Medications Current Medications Lorazepam (Ativan) 1 mg QHS PRN PO INSOMNIA Last administered on 02/22/17 21:47 ; Admin Dose 1 MG; Start 02/22/17 at 00:30 Ondansetron HCl (Zofran Inj) 4 mg Q6H PRN IV NAUSEA AND/OR VOMITING Last administered on 02/23/17 08:41; Admin Dose 4 MG; Start 02/22/17 at 00:30 Acetaminophen (Tylenol Tab) 650 mg Q6H PRN PO PAIN LEVEL 1-3 OR FEVER Last administered on 02/23/17 08:42; Admin Dose 650 MG; Start 02/22/17 at 00:30 Morphine Sulfate (morphine) 2 mg Q4H PRN IV PAIN LEVEL 7-10 Last administered on 02/22/17 19:28; Admin Dose 2 MG; Start 02/22/17 at 00:30 Docusate Sodium (Colace) 100 mg Q12 PO Last administered on 02/23/17 08:42; Admin Dose 100 MG; Start 02/22/17 at 00:30 Bisacodyl (Dulcolax) 5 mg DAILY PO Last administered on 02/23/17 08:42; Admin Dose 5 MG; Start 02/22/17 at 09:00 Pantoprazole (Protonix Tab) 40 mg DAILY@06 PO Last administered on 02/23/17 05 :28; Admin Dose 40 MG; Start 02/22/17 at 06:00 Benzonatate (Tessalon) 100 mg Q8H PRN PO COUGH; Start 02/22/17 at 00:30 Calcium/Vitamin D (Oyster Shell/ Vit-D (500/200)) 1 tab DAILY PRN PO DIRECTED Last administered on 02/23/17 08:41; Admin Dose 1 TAB; Start 02/22/17 at 00:30 Clobetasol Propionate (Temovate 0.05% Cr) 1 applic BID TOP Last administered on 02/23/17 08:50; Admin Dose 1 APPLIC; Start 02/22/17 at 09:00 Estradiol (Estrace 0.01% Vaginal Cr) 1 applic DAILY VAG ; Start 02/22/17 at 09:00 Fluticasone Propionate (Flonase 0.05% Nasal) 1 spray DAILY NASAL Last administered on 02/23/17 08:46; Admin Dose 1 SPRAY; Start 02/22/17 at 09:00 Folic Acid (Folic Acid) 1 mg DAILY PO Last administered on 02/23/17 08:42; Admin Dose 1 MG; Start 02/22/17 at 09:00 Montelukast Sodium (Singulair) 10 mg QHS PO Last administered on 02/22/17 21:10 ; Admin Dose 10 MG; Start 02/22/17 at 21:00 Triamcinolone Acetonide (Kenalog 0.025% Oint) 1 applic BID TOP Last administered on 02/23/17 08:50; Admin Dose 1 APPLIC; Start 02/22/17 at 09:00 Guaifenesin/ Dextromethorphan (Mucinex Dm) 1 tab BID PO Last administered on 08:42; Admin Dose 1 TAB; Start 02/22/17 at 01:00 Fluconazole (Diflucan) 200 mg DAILY PO Last administered on 02/23/17 08:42; Admin Dose 200 MG; Start 02/22/17 at 12:00; Stop 02/24/17 at 09:01 Levofloxacin (Levaquin) 750 mg Q48H PO Last administered on 02/23/17 05:28; Admin Dose 750 MG; Start 02/23/17 at 06:00 Assessment/Plan Chief Complaint/Hosp Course Assessment 1. Progressive stage IV lung cancer. 2. Possible postobstructive pneumonia. 3. Recurrent left pleural effusion now with loculated pneumothorax. 4. Currently undergoing chemotherapy with Dr. Quiñones Plan 1. Continue antibiotic coverage 2. Continue supplemental O2 3. Hematology oncology recommendations. 4. Long discussion with patient today will need significant placement prior to discharge home. Patient agreeable. Problems: JONI ORTEGA MD, [facility] Feb 23, 2017 13:25
--- NOTE | 2017-02-23 15:41 | PN ---
Date/Time of Note Date/Time of Note DATE: 02/23/17 TIME: 15:40 Assessment/Plan VTE Prophylaxis VTE Prophylaxis Intervention: SCD's Lines/Catheters IV [facility]ter Type (from [facility] Urinary Cath still in place: No Assessment/Plan Assessment/Plan 76 yo F with known h/o stage 4 lung ca c/b recurrent pleural effusions admitted for SOB from pleural effusion. ? of possible underlying CAP as well PLAN thora 8.9 (1L removed) abx: PO levoflox as pt lives in the community and able to take PO cont other home meds dc: CM cs for LOS Subjective 24 Hr Interval Summary Free Text/Dictation breathing feels better after thora. Exam/Review of Systems Vital Signs Vitals Vital Signs Date Time Temp Pulse Resp B/P Pulse Ox O2 Delivery O2 Flow Rate FiO2 02/23/17 15:15 98.6 89 99/54 90 02/23/17 14:55 2.0 02/23/17 11:10 18 02/23/17 07:55 Nasal Cannula Intake and Output 02/22/17 02/22/17 02/23/17 15:00 23:00 07:00 Intake Total 600 ml 400 ml Output Total 1000 ml Balance -400 ml 400 ml Exam nad no mrg increased breath sounds on L abd soft no rashes Results Result Diagram: 02/23/1748 02/23/17 0748 Results 24 hrs Laboratory Tests Test 02/23/17 07:48 White Blood Count 12.9 H Red Blood Count 3.95 L Hemoglobin 10.7 L Hematocrit 32.8 L Mean Corpuscular Volume 83.0 Mean Corpuscular Hemoglobin 27.1 L Mean Corpuscular Hemoglobin Concent 32.6 Red Cell Distribution Width 15.8 H Platelet Count 377 # Mean Platelet Volume 9.2 Neutrophils % 76.0 Lymphocytes % 6.4 L Monocytes % 15.5 H Eosinophils % 1.1 Basophils % 0.5 Nucleated Red Blood Cells % 0.0 Neutrophils # 9.8 H Lymphocytes # 0.8 Monocytes # 2.0 H Eosinophils # 0.1 Basophils # 0.1 Nucleated Red Blood Cells # 0.0 Prothrombin Time 14.5 H Prothrombin Time Ratio 1.1 INR International Normalized Ratio 1.13 Activated Partial Thromboplast Time 32.4 Sodium Level 139 Potassium Level 3.9 Chloride Level 104 Carbon Dioxide Level 26 Anion Gap 13 Blood Urea Nitrogen 9 Creatinine 0.71 Glucose Level 81 Calcium Level 8.3 L Total Bilirubin 0.3 Direct Bilirubin 0.00 Indirect Bilirubin 0.3 Aspartate Amino Transf (AST/SGOT) 26 Alanine Aminotransferase (ALT/SGPT) 26 Alkaline Phosphatase 56 Total Protein 5.5 L Albumin 2.9 L Globulin 2.60 Albumin/Globulin Ratio 1.11 Medications Medications Current Medications Lorazepam (Ativan) 1 mg QHS PRN PO INSOMNIA Last administered on 02/22/17 21:47 ; Admin Dose 1 MG; Start 02/22/17 at 00:30 Ondansetron HCl (Zofran Inj) 4 mg Q6H PRN IV NAUSEA AND/OR VOMITING Last administered on 02/23/17 08:41; Admin Dose 4 MG; Start 02/22/17 at 00:30 Acetaminophen (Tylenol Tab) 650 mg Q6H PRN PO PAIN LEVEL 1-3 OR FEVER Last administered on 02/23/17 08:42; Admin Dose 650 MG; Start 02/22/17 at 00:30 Morphine Sulfate (morphine) 2 mg Q4H PRN IV PAIN LEVEL 7-10 Last administered on 02/22/17 19:28; Admin Dose 2 MG; Start 02/22/17 at 00:30 Docusate Sodium (Colace) 100 mg Q12 PO Last administered on 02/23/17 08:42; Admin Dose 100 MG; Start 02/22/17 at 00:30 Bisacodyl (Dulcolax) 5 mg DAILY PO Last administered on 02/23/17 08:42; Admin Dose 5 MG; Start 02/22/17 at 09:00 Pantoprazole (Protonix Tab) 40 mg DAILY@06 PO Last administered on 02/23/17 05 :28; Admin Dose 40 MG; Start 02/22/17 at 06:00 Benzonatate (Tessalon) 100 mg Q8H PRN PO COUGH; Start 02/22/17 at 00:30 Calcium/Vitamin D (Oyster Shell/ Vit-D (500/200)) 1 tab DAILY PRN PO DIRECTED Last administered on 02/23/17 08:41; Admin Dose 1 TAB; Start 02/22/17 at 00:30 Clobetasol Propionate (Temovate 0.05% Cr) 1 applic BID TOP Last administered on 02/23/17 08:50; Admin Dose 1 APPLIC; Start 02/22/17 at 09:00 Estradiol (Estrace 0.01% Vaginal Cr) 1 applic DAILY VAG ; Start 02/22/17 at 09:00 Fluticasone Propionate (Flonase 0.05% Nasal) 1 spray DAILY NASAL Last administered on 02/23/17 08:46; Admin Dose 1 SPRAY; Start 02/22/17 at 09:00 Folic Acid (Folic Acid) 1 mg DAILY PO Last administered on 02/23/17 08:42; Admin Dose 1 MG; Start 02/22/17 at 09:00 Montelukast Sodium (Singulair) 10 mg QHS PO Last administered on 02/22/17 21:10 ; Admin Dose 10 MG; Start 02/22/17 at 21:00 Triamcinolone Acetonide (Kenalog 0.025% Oint) 1 applic BID TOP Last administered on 02/23/17 08:50; Admin Dose 1 APPLIC; Start 02/22/17 at 09:00 Guaifenesin/ Dextromethorphan (Mucinex Dm) 1 tab BID PO Last administered on 08:42; Admin Dose 1 TAB; Start 02/22/17 at 01:00 Fluconazole (Diflucan) 200 mg DAILY PO Last administered on 02/23/17 08:42; Admin Dose 200 MG; Start 02/22/17 at 12:00; Stop 02/24/17 at 09:01 Levofloxacin (Levaquin) 750 mg Q48H PO Last administered on 02/23/17 05:28; Admin Dose 750 MG; Start 02/23/17 at 06:00 KINGSLEY ESPINOSA MD Feb 23, 2017 15:41
[2017-02-23] MEDS: SENNA TAB PO SCH (17:39)
[2017-02-23] MEDS: morphine 2 MG INJ IV PRN (17:39)
[2017-02-23] MEDS: BENZONATATE 100 MG CAP PO PRN (20:49)
[2017-02-23] MEDS: ALBUTEROL 18 GM INHALER INH PRN (20:50)
[2017-02-23] MEDS: MONTELUKAST 10 MG TAB PO SCH (20:55)
--- NOTE | 2017-02-23 21:14 | CONS ---
Date/Time of Note Date/Time of Note DATE: 02/23/17 TIME: 21:09 Assessment/Plan Assessment/Plan Chief Complaint/Hosp Course #Stage IV adenocarcinoma of lung who has progressed through Carboplatin/ Alimpta , Opdivo and now Keytruda. Now to start on Cyramza single agent as she could not tolerate Taxol -pt understands that she is terminally ill and that her chemotherapeutic options are limited -pt does have palliative care at home but she still wants to continue with therapy at this time #Loculated pleural effusion -s/p thoracentesis -I do not think pt could have a pleurex catheter but will discuss with pulmonary #Pneumothorax s/p thoracentesis -appreciate pulmonary recommendations #Post obstructive PNA -cont antibiotics Problems: (1) Pneumothorax after biopsy Status: Acute (2) Pleural effusion Status: Chronic (3) Lung malignancy Status: Chronic Qualifiers: Laterality: left Lung location: overlapping sites Qualified Code: C34.82 - Malignant neoplasm of overlapping sites of left lung (4) Sepsis due to pneumonia Status: Acute Consultation Date/Type/Reason Admit Date/Time Feb 21, 2017 at 21:44 Initial Consult Date 02/22/17 Type of Consultation: oncoloty Reason for Consultation stage IV lung ca Referring Provider: GERRY NDIAYE 24 HR Interval Summary Free Text/Dictation pt had thoracentesis yesterday. this morning she was discovered to have a pneumothorax. pt has been seen by pulmonary. she continues on antibiotics Exam/Review of Systems Vital Signs Vitals Vital Signs Date Time Temp Pulse Resp B/P Pulse Ox O2 Delivery O2 Flow Rate FiO2 02/23/17 20:19 95 02/23/17 15:15 98.6 99/54 90 02/23/17 14:55 2.0 02/23/17 11:10 18 02/23/17 07:55 Nasal Cannula Intake and Output 02/22/17 02/22/17 02/23/17 15:00 23:00 07:00 Intake Total 600 ml 400 ml Output Total 1000 ml Balance -400 ml 400 ml Exam Constitutional: alert, frail Psych: no complaints Head: normocephalic Eyes: nl conjunctiva ENMT: nl external ears & nose Neck: supple Respiratory: crackles/rales, diminished breath sounds, intercostal retraction, labored breathing Cardiovascular: regular rate and rhythm Gastrointestinal: soft Musculoskeletal: nl extremities to inspection, nl gait and stance Extremities: normal pulses Results Result Diagram: 02/23/17 0748 02/23/17 0748 Results 24 hrs Laboratory Tests Test 02/23/17 07:48 White Blood Count 12.9 H Red Blood Count 3.95 L Hemoglobin 10.7 L Hematocrit 32.8 L Mean Corpuscular Volume 83.0 Mean Corpuscular Hemoglobin 27.1 L Mean Corpuscular Hemoglobin Concent 32.6 Red Cell Distribution Width 15.8 H Platelet Count 377 # Mean Platelet Volume 9.2 Neutrophils % 76.0 Lymphocytes % 6.4 L Monocytes % 15.5 H Eosinophils % 1.1 Basophils % 0.5 Nucleated Red Blood Cells % 0.0 Neutrophils # 9.8 H Lymphocytes # 0.8 Monocytes # 2.0 H Eosinophils # 0.1 Basophils # 0.1 Nucleated Red Blood Cells # 0.0 Prothrombin Time 14.5 H Prothrombin Time Ratio 1.1 INR International Normalized Ratio 1.13 Activated Partial Thromboplast Time 32.4 Sodium Level 139 Potassium Level 3.9 Chloride Level 104 Carbon Dioxide Level 26 Anion Gap 13 Blood Urea Nitrogen 9 Creatinine 0.71 Glucose Level 81 Calcium Level 8.3 L Total Bilirubin 0.3 Direct Bilirubin 0.00 Indirect Bilirubin 0.3 Aspartate Amino Transf (AST/SGOT) 26 Alanine Aminotransferase (ALT/SGPT) 26 Alkaline Phosphatase 56 Total Protein 5.5 L Albumin 2.9 L Globulin 2.60 Albumin/Globulin Ratio 1.11 Medications Medications Current Medications Lorazepam (Ativan) 1 mg QHS PRN PO INSOMNIA Last administered on 02/22/17 21:47 ; Admin Dose 1 MG; Start 02/22/17 at 00:30 Ondansetron HCl (Zofran Inj) 4 mg Q6H PRN IV NAUSEA AND/OR VOMITING Last administered on 02/23/17 17:39; Admin Dose 4 MG; Start 02/22/17 at 00:30 Acetaminophen (Tylenol Tab) 650 mg Q6H PRN PO PAIN LEVEL 1-3 OR FEVER Last administered on 02/23/17 08:42; Admin Dose 650 MG; Start 02/22/17 at 00:30 Morphine Sulfate (morphine) 2 mg Q4H PRN IV PAIN LEVEL 7-10 Last administered on 02/23/17 17:39; Admin Dose 2 MG; Start 02/22/17 at 00:30 Docusate Sodium (Colace) 100 mg Q12 PO Last administered on 02/23/17 08:42; Admin Dose 100 MG; Start 02/22/17 at 00:30 Bisacodyl (Dulcolax) 5 mg DAILY PO Last administered on 02/23/17 08:42; Admin Dose 5 MG; Start 02/22/17 at 09:00 Pantoprazole (Protonix Tab) 40 mg DAILY@06 PO Last administered on 02/23/17 05 :28; Admin Dose 40 MG; Start 02/22/17 at 06:00 Benzonatate (Tessalon) 100 mg Q8H PRN PO COUGH Last administered on 02/23/17 20:49; Admin Dose 100 MG; Start 02/22/17 at 00:30 Calcium/Vitamin D (Oyster Shell/ Vit-D (500/200)) 1 tab DAILY PRN PO DIRECTED Last administered on 02/23/17 08:41; Admin Dose 1 TAB; Start 02/22/17 at 00:30 Clobetasol Propionate (Temovate 0.05% Cr) 1 applic BID TOP Last administered on 02/23/17 20:51; Admin Dose 1 APPLIC; Start 02/22/17 at 09:00 Estradiol (Estrace 0.01% Vaginal Cr) 1 applic DAILY VAG ; Start 02/22/17 at 09:00 Fluticasone Propionate (Flonase 0.05% Nasal) 1 spray DAILY NASAL Last administered on 02/23/17 08:46; Admin Dose 1 SPRAY; Start 02/22/17 at 09:00 Folic Acid (Folic Acid) 1 mg DAILY PO Last administered on 02/23/17 08:42; Admin Dose 1 MG; Start 02/22/17 at 09:00 Montelukast Sodium (Singulair) 10 mg QHS PO Last administered on 02/23/17 20: 55; Admin Dose 10 MG; Start 02/22/17 at 21:00 Triamcinolone Acetonide (Kenalog 0.025% Oint) 1 applic BID TOP Last administered on 02/23/17 20:50; Admin Dose 1 APPLIC; Start 02/22/17 at 09:00 Guaifenesin/ Dextromethorphan (Mucinex Dm) 1 tab BID PO Last administered on 08:42; Admin Dose 1 TAB; Start 02/22/17 at 01:00 Fluconazole (Diflucan) 200 mg DAILY PO Last administered on 02/23/17 08:42; Admin Dose 200 MG; Start 02/22/17 at 12:00; Stop 02/24/17 at 09:01 Levofloxacin (Levaquin) 750 mg Q48H PO Last administered on 02/23/17 05:28; Admin Dose 750 MG; Start 02/23/17 at 06:00 Senna (Senokot) 1 tab DAILY PO Last administered on 02/23/17 17:39; Admin Dose 1 TAB; Start 02/23/17 at 18:00 NANO JENKINS M.D. Feb 23, 2017 21:14
[2017-02-23] MEDS: LORAZEPAM 1 MG TAB PO PRN (22:04)
[2017-02-24] VITALS (12 sets, daily range): BP systolic 55–113; BP diastolic 53–64; PULSE 80–92; RESP 17–19
[2017-02-24] MEDS ORDERED: LEVOFLOXACIN 750MG/D5W (PMX) 150 ML IVPB SCH (01:00)
[2017-02-24] MEDS: PANTOPRAZOLE (EC) 40 MG TAB PO SCH (05:11)
[2017-02-24] MEDS: DOCUSATE SODIUM 100 MG CAP PO SCH ×2 (09:36→21:26)
[2017-02-24] MEDS: SENNA TAB PO SCH (09:36)
[2017-02-24] MEDS: GUAIFENESIN/DM (SR) TAB PO SCH ×2 (09:36→21:26)
[2017-02-24] MEDS: IPRATROPIUM (HFA) 12.9 GM INHALER INH SCH ×2 (09:37→21:27)
[2017-02-24] MEDS: FLUCONAZOLE 200 MG TAB PO SCH (09:37)
[2017-02-24] MEDS: FLUTICASONE 0.05% 16 GM NAS SPRAY NASAL SCH (09:37)
[2017-02-24] MEDS: CLOBETASOL 0.05% 15 GM CR TOP SCH ×2 (09:38→21:27)
[2017-02-24] MEDS: BISACODYL (EC) 5 MG TAB PO SCH (09:38)
[2017-02-24] MEDS: TRIAMCINOLONE ACET 0.025% 15 GM OINT TOP SCH ×2 (09:38→21:27)
[2017-02-24] MEDS: ESTRADIOL VAG SCH (09:38)
[2017-02-24] MEDS: FOLIC ACID 1 MG TAB PO SCH (09:42)
--- NOTE | 2017-02-24 09:59 | CONS ---
Date/Time of Note Date/Time of Note DATE: 02/24/17 TIME: 09:58 Assessment/Plan Assessment/Plan Chief Complaint/Hosp Course #Stage IV adenocarcinoma of lung who has progressed through Carboplatin/ Alimpta , Opdivo and now Keytruda. Now to start on Cyramza single agent as she could not tolerate Taxol -pt understands that she is terminally ill and that her chemotherapeutic options are limited -pt does have palliative care at home but she still wants to continue with therapy at this time #Loculated pleural effusion -s/p thoracentesis -I do not think pt could have a pleurex catheter but will discuss with pulmonary #Pneumothorax s/p thoracentesis -appreciate pulmonary recommendations #Post obstructive PNA -cont antibiotics Problems: (1) Pneumothorax after biopsy Status: Acute (2) Pleural effusion Status: Chronic (3) Lung malignancy Status: Chronic Qualifiers: Laterality: left Lung location: overlapping sites Qualified Code: C34.82 - Malignant neoplasm of overlapping sites of left lung (4) Sepsis due to pneumonia Status: Acute Problems: Consultation Date/Type/Reason Admit Date/Time Feb 21, 2017 at 21:44 Initial Consult Date 02/22/17 Type of Consultation: oncology Reason for Consultation stage IV lung cancer Referring Provider: GERRY NDIAYE 24 HR Interval Summary Free Text/Dictation no acute overnight events Exam/Review of Systems Vital Signs Vitals Vital Signs Date Time Temp Pulse Resp B/P Pulse Ox O2 Delivery O2 Flow Rate FiO2 02/24/17 08:30 Nasal Cannula 3.0 02/24/17 08:08 80 02/24/17 06:56 99.3 18 55/ 95 Intake and Output 02/23/17 02/23/17 02/24/17 15:00 23:00 07:00 Intake Total 550 ml 120 ml Balance 550 ml 120 ml Exam Constitutional: alert, distress, frail, oriented Psych: anxiety, depression Head: normocephalic Eyes: nl conjunctiva ENMT: nl external ears & nose Neck: supple Respiratory: crackles/rales, diminished breath sounds, intercostal retraction, labored breathing Cardiovascular: regular rate and rhythm Gastrointestinal: soft Musculoskeletal: nl extremities to inspection, nl gait and stance Extremities: normal pulses Results Result Diagram: 02/23/17 0748 02/23/1748 Medications Medications Current Medications Lorazepam (Ativan) 1 mg QHS PRN PO INSOMNIA Last administered on 02/23/17 22: 04; Admin Dose 1 MG; Start 02/22/17 at 00:30 Ondansetron HCl (Zofran Inj) 4 mg Q6H PRN IV NAUSEA AND/OR VOMITING Last administered on 02/23/17 22:04; Admin Dose 4 MG; Start 02/22/17 at 00:30 Acetaminophen (Tylenol Tab) 650 mg Q6H PRN PO PAIN LEVEL 1-3 OR FEVER Last administered on 02/23/17 08:42; Admin Dose 650 MG; Start 02/22/17 at 00:30 Morphine Sulfate (morphine) 2 mg Q4H PRN IV PAIN LEVEL 7-10 Last administered on 02/23/17 17:39; Admin Dose 2 MG; Start 02/22/17 at 00:30 Docusate Sodium (Colace) 100 mg Q12 PO Last administered on 02/24/17 09:36; Admin Dose 100 MG; Start 02/22/17 at 00:30 Bisacodyl (Dulcolax) 5 mg DAILY PO Last administered on 02/24/17 09:38; Admin Dose 5 MG; Start 02/22/17 at 09:00 Pantoprazole (Protonix Tab) 40 mg DAILY@06 PO Last administered on 02/24/17 05 :11; Admin Dose 40 MG; Start 02/22/17 at 06:00 Benzonatate (Tessalon) 100 mg Q8H PRN PO COUGH Last administered on 02/23/17 20:49; Admin Dose 100 MG; Start 02/22/17 at 00:30 Calcium/Vitamin D (Oyster Shell/ Vit-D (500/200)) 1 tab DAILY PRN PO DIRECTED Last administered on 02/23/17 08:41; Admin Dose 1 TAB; Start 02/22/17 at 00:30 Clobetasol Propionate (Temovate 0.05% Cr) 1 applic BID TOP Last administered on 02/24/17 09:38; Admin Dose 1 APPLIC; Start 02/22/17 at 09:00 Estradiol (Estrace 0.01% Vaginal Cr) 1 applic DAILY VAG Last administered on 09:38; Admin Dose 1 APPLIC; Start 02/22/17 at 09:00 Fluticasone Propionate (Flonase 0.05% Nasal) 1 spray DAILY NASAL Last administered on 02/24/17 09:37; Admin Dose 1 SPRAY; Start 02/22/17 at 09:00 Folic Acid (Folic Acid) 1 mg DAILY PO Last administered on 02/24/17 09:42; Admin Dose 1 MG; Start 02/22/17 at 09:00 Montelukast Sodium (Singulair) 10 mg QHS PO Last administered on 02/23/17 20: 55; Admin Dose 10 MG; Start 02/22/17 at 21:00 Triamcinolone Acetonide (Kenalog 0.025% Oint) 1 applic BID TOP Last administered on 02/24/17 09:38; Admin Dose 1 APPLIC; Start 02/22/17 at 09:00 Guaifenesin/ Dextromethorphan (Mucinex Dm) 1 tab BID PO Last administered on 09:36; Admin Dose 1 TAB; Start 02/22/17 at 01:00 Levofloxacin (Levaquin) 750 mg Q48H PO Last administered on 02/23/17 05:28; Admin Dose 750 MG; Start 02/23/17 at 06:00 Senna (Senokot) 1 tab DAILY PO Last administered on 02/24/17 09:36; Admin Dose 1 TAB; Start 02/23/17 at 18:00 NANO JENKINS M.D. Feb 24, 2017 09:59
[2017-02-24] MEDS: ONDANSETRON 4 MG INJ IV PRN (13:56)
[2017-02-24] MEDS: morphine 2 MG INJ IV PRN (13:57)
--- NOTE | 2017-02-24 15:36 | CONS ---
Date/Time of Note Date/Time of Note DATE: 02/24/17 TIME: 15:33 Consult Date/Type/Reason Admit Date/Time Feb 21, 2017 at 21:44 Initial Consult Date 02/22/17 Type of Consultation: Pulmonary Ordering Provider: GERRY NDIAYE Subjective Patient feeling a little better today still has moderate weakness but improved p.o. intake. Objective Vital Signs Date Time Temp Pulse Resp B/P Pulse Ox O2 Delivery O2 Flow Rate FiO2 02/24/17 15:16 98.2 90 18 110/57 97 02/24/17 08:30 Nasal Cannula 3.0 Intake and Output 02/23/17 02/23/17 02/24/17 14:59 22:59 06:59 Intake Total 550 ml 120 ml Balance 550 ml 120 ml Exam GENERAL: Chronically ill-appearing lady comfortable at rest VITAL SIGNS: per chart NECK: Supple. No JVD or lymphadenopathy. CARDIAC EXAM: S1, S2. No added sounds or murmurs. CHEST: Diminished air entry both lung bases. ABDOMEN: Soft, nontender. No guarding or rebound. EXTREMITIES: No cyanosis, clubbing or edema. NEUROLOGIC: Generalized weakness. No focal deficits. Results/Medications Result Diagram: 02/23/17 0748 02/23/17 0748 Medications Current Medications Lorazepam (Ativan) 1 mg QHS PRN PO INSOMNIA Last administered on 02/23/17 22: 04; Admin Dose 1 MG; Start 02/22/17 at 00:30 Ondansetron HCl (Zofran Inj) 4 mg Q6H PRN IV NAUSEA AND/OR VOMITING Last administered on 02/24/17 13:56; Admin Dose 4 MG; Start 02/22/17 at 00:30 Acetaminophen (Tylenol Tab) 650 mg Q6H PRN PO PAIN LEVEL 1-3 OR FEVER Last administered on 02/23/17 08:42; Admin Dose 650 MG; Start 02/22/17 at 00:30 Morphine Sulfate (morphine) 2 mg Q4H PRN IV PAIN LEVEL 7-10 Last administered on 02/24/17 13:57; Admin Dose 2 MG; Start 02/22/17 at 00:30 Docusate Sodium (Colace) 100 mg Q12 PO Last administered on 02/24/17 09:36; Admin Dose 100 MG; Start 02/22/17 at 00:30 Bisacodyl (Dulcolax) 5 mg DAILY PO Last administered on 02/24/17 09:38; Admin Dose 5 MG; Start 02/22/17 at 09:00 Pantoprazole (Protonix Tab) 40 mg DAILY@06 PO Last administered on 02/24/17 05 :11; Admin Dose 40 MG; Start 02/22/17 at 06:00 Benzonatate (Tessalon) 100 mg Q8H PRN PO COUGH Last administered on 02/23/17 20:49; Admin Dose 100 MG; Start 02/22/17 at 00:30 Calcium/Vitamin D (Oyster Shell/ Vit-D (500/200)) 1 tab DAILY PRN PO DIRECTED Last administered on 02/23/17 08:41; Admin Dose 1 TAB; Start 02/22/17 at 00:30 Clobetasol Propionate (Temovate 0.05% Cr) 1 applic BID TOP Last administered on 02/24/17 09:38; Admin Dose 1 APPLIC; Start 02/22/17 at 09:00 Estradiol (Estrace 0.01% Vaginal Cr) 1 applic DAILY VAG Last administered on 09:38; Admin Dose 1 APPLIC; Start 02/22/17 at 09:00 Fluticasone Propionate (Flonase 0.05% Nasal) 1 spray DAILY NASAL Last administered on 02/24/17 09:37; Admin Dose 1 SPRAY; Start 02/22/17 at 09:00 Folic Acid (Folic Acid) 1 mg DAILY PO Last administered on 02/24/17 09:42; Admin Dose 1 MG; Start 02/22/17 at 09:00 Montelukast Sodium (Singulair) 10 mg QHS PO Last administered on 02/23/17 20: 55; Admin Dose 10 MG; Start 02/22/17 at 21:00 Triamcinolone Acetonide (Kenalog 0.025% Oint) 1 applic BID TOP Last administered on 02/24/17 09:38; Admin Dose 1 APPLIC; Start 02/22/17 at 09:00 Guaifenesin/ Dextromethorphan (Mucinex Dm) 1 tab BID PO Last administered on 09:36; Admin Dose 1 TAB; Start 02/22/17 at 01:00 Levofloxacin (Levaquin) 750 mg Q48H PO Last administered on 02/23/17 05:28; Admin Dose 750 MG; Start 02/23/17 at 06:00 Senna (Senokot) 1 tab DAILY PO Last administered on 02/24/17 09:36; Admin Dose 1 TAB; Start 02/23/17 at 18:00 Assessment/Plan Chief Complaint/Hosp Course Assessment 1. Progressive stage IV lung cancer. 2. Possible postobstructive pneumonia. 3. Recurrent left pleural effusion now with loculated pneumothorax. 4. Currently undergoing chemotherapy with Dr. Quiñones Plan 1. Continue antibiotic coverage 2. Continue supplemental O2 3. Hematology oncology recommendations. 4. Agree with discharge planning to [facility] facility patient has follow -up with me in 2 weeks time. Problems: JONI ORTEGA MD, [facility] Feb 24, 2017 15:36
--- NOTE | 2017-02-24 16:22 | PN ---
Date/Time of Note Date/Time of Note DATE: 02/24/17 TIME: 16:21 Assessment/Plan VTE Prophylaxis VTE Prophylaxis Intervention: SCD's Lines/Catheters IV Catheter Type (from Nrs): PORTACATH Urinary Cath still in place: No Assessment/Plan Assessment/Plan 76 yo F with known h/o stage 4 lung ca c/b recurrent pleural effusions admitted for SOB from pleural effusion. ? of possible underlying CAP as well PLAN thora 8.9 (1L removed) abx: PO levoflox as pt lives in the community and able to take PO-->5 days of therapy as thora culture neg cont other home meds dc: SNF in AM Subjective 24 Hr Interval Summary Free Text/Dictation requesting 1 more day in the hospital Exam/Review of Systems Vital Signs Vitals Vital Signs Date Time Temp Pulse Resp B/P Pulse Ox O2 Delivery O2 Flow Rate FiO2 02/24/17 15:16 98.2 90 18 110/57 97 02/24/17 08:30 Nasal Cannula 3.0 Intake and Output 02/23/17 02/23/17 02/24/17 15:00 23:00 07:00 Intake Total 550 ml 120 ml Balance 550 ml 120 ml Exam nad no mrg resp nonlabored abd soft no rashes Results Result Diagram: 02/23/17 0748 02/23/17 0748 Medications Medications Current Medications Lorazepam (Ativan) 1 mg QHS PRN PO INSOMNIA Last administered on 02/23/17 22: 04; Admin Dose 1 MG; Start 02/22/17 at 00:30 Ondansetron HCl (Zofran Inj) 4 mg Q6H PRN IV NAUSEA AND/OR VOMITING Last administered on 02/24/17 13:56; Admin Dose 4 MG; Start 02/22/17 at 00:30 Acetaminophen (Tylenol Tab) 650 mg Q6H PRN PO PAIN LEVEL 1-3 OR FEVER Last administered on 02/23/17 08:42; Admin Dose 650 MG; Start 02/22/17 at 00:30 Morphine Sulfate (morphine) 2 mg Q4H PRN IV PAIN LEVEL 7-10 Last administered on 02/24/17 13:57; Admin Dose 2 MG; Start 02/22/17 at 00:30 Docusate Sodium (Colace) 100 mg Q12 PO Last administered on 02/24/17 09:36; Admin Dose 100 MG; Start 02/22/17 at 00:30 Bisacodyl (Dulcolax) 5 mg DAILY PO Last administered on 02/24/17 09:38; Admin Dose 5 MG; Start 02/22/17 at 09:00 Pantoprazole (Protonix Tab) 40 mg DAILY@06 PO Last administered on 02/24/17 05 :11; Admin Dose 40 MG; Start 02/22/17 at 06:00 Benzonatate (Tessalon) 100 mg Q8H PRN PO COUGH Last administered on 02/23/17 20:49; Admin Dose 100 MG; Start 02/22/17 at 00:30 Calcium/Vitamin D (Oyster Shell/ Vit-D (500/200)) 1 tab DAILY PRN PO DIRECTED Last administered on 02/23/17 08:41; Admin Dose 1 TAB; Start 02/22/17 at 00:30 Clobetasol Propionate (Temovate 0.05% Cr) 1 applic BID TOP Last administered on 02/24/17 09:38; Admin Dose 1 APPLIC; Start 02/22/17 at 09:00 Estradiol (Estrace 0.01% Vaginal Cr) 1 applic DAILY VAG Last administered on 09:38; Admin Dose 1 APPLIC; Start 02/22/17 at 09:00 Fluticasone Propionate (Flonase 0.05% Nasal) 1 spray DAILY NASAL Last administered on 02/24/17 09:37; Admin Dose 1 SPRAY; Start 02/22/17 at 09:00 Folic Acid (Folic Acid) 1 mg DAILY PO Last administered on 02/24/17 09:42; Admin Dose 1 MG; Start 02/22/17 at 09:00 Montelukast Sodium (Singulair) 10 mg QHS PO Last administered on 02/23/17 20: 55; Admin Dose 10 MG; Start 02/22/17 at 21:00 Triamcinolone Acetonide (Kenalog 0.025% Oint) 1 applic BID TOP Last administered on 02/24/17 09:38; Admin Dose 1 APPLIC; Start 02/22/17 at 09:00 Guaifenesin/ Dextromethorphan (Mucinex Dm) 1 tab BID PO Last administered on 8/ 11/17at 09:36; Admin Dose 1 TAB; Start 02/22/17 at 01:00 Levofloxacin (Levaquin) 750 mg Q48H PO Last administered on 02/23/17 05:28; Admin Dose 750 MG; Start 02/23/17 at 06:00 Senna (Senokot) 1 tab DAILY PO Last administered on 02/24/17 09:36; Admin Dose 1 TAB; Start 02/23/17 at 18:00 Procedures Procedures thora culture neg KINGSLEY ESPINOSA MD Feb 24, 2017 16:22
[2017-02-24] MEDS: BENZONATATE 100 MG CAP PO PRN ×2 (16:27→21:26)
[2017-02-24] MEDS: MONTELUKAST 10 MG TAB PO SCH (21:26)
[2017-02-25] VITALS (10 sets, daily range): BP systolic 101–121; BP diastolic 55–63; PULSE 77–94; RESP 16–20
[2017-02-25] MEDS: LEVOFLOXACIN 750 MG TABLET PO SCH (05:17)
[2017-02-25] MEDS: PANTOPRAZOLE (EC) 40 MG TAB PO SCH (05:17)
[2017-02-25] MEDS: ONDANSETRON 4 MG INJ IV PRN ×2 (07:53→18:22)
[2017-02-25] MEDS: morphine 2 MG INJ IV PRN (07:53)
[2017-02-25] MEDS: BENZONATATE 100 MG CAP PO PRN (07:54)
[2017-02-25] MEDS: GUAIFENESIN/DM (SR) TAB PO SCH (08:00)
[2017-02-25] MEDS: IPRATROPIUM (HFA) 12.9 GM INHALER INH SCH (08:00)
[2017-02-25] MEDS: FLUTICASONE 0.05% 16 GM NAS SPRAY NASAL SCH (08:01)
[2017-02-25] MEDS: CALCIUM/VITAMIN D (500/200) TAB PO PRN (08:01)
[2017-02-25] MEDS: BISACODYL (EC) 5 MG TAB PO SCH (08:01)
[2017-02-25] MEDS: FOLIC ACID 1 MG TAB PO SCH (08:01)
[2017-02-25] MEDS: DOCUSATE SODIUM 100 MG CAP PO SCH (08:01)
[2017-02-25] MEDS: TRIAMCINOLONE ACET 0.025% 15 GM OINT TOP SCH (08:02)
[2017-02-25] MEDS: SENNA TAB PO SCH (08:02)
[2017-02-25] MEDS: ESTRADIOL VAG SCH (08:03)
[2017-02-25] MEDS: CLOBETASOL 0.05% 15 GM CR TOP SCH (08:03)
--- NOTE | 2017-02-25 13:01 | CONS ---
Date/Time of Note Date/Time of Note DATE: 02/25/17 TIME: 13:00 Consult Date/Type/Reason Admit Date/Time Feb 21, 2017 at 21:44 Initial Consult Date 02/22/17 Type of Consultation: Pulmonary Ordering Provider: GERRY NDIAYE Subjective Discharge home yesterday patient had increasing cough congestion generalized fatigue. States she is feeling better this morning. Objective Vital Signs Date Time Temp Pulse Resp B/P Pulse Ox O2 Delivery O2 Flow Rate FiO2 02/25/17 11:23 98.0 91 20 101/55 87 02/25/17 07:55 Nasal Cannula 3.0 Intake and Output 02/24/17 02/24/17 02/25/17 15:00 23:00 07:00 Intake Total 720 ml 200 ml Balance 720 ml 200 ml Exam GENERAL: Chronically ill-appearing lady comfortable at rest VITAL SIGNS: per chart NECK: Supple. No JVD or lymphadenopathy. CARDIAC EXAM: S1, S2. No added sounds or murmurs. CHEST: Diminished air entry both lung bases. ABDOMEN: Soft, nontender. No guarding or rebound. EXTREMITIES: No cyanosis, clubbing or edema. NEUROLOGIC: Generalized weakness. No focal deficits. Results/Medications Result Diagram: 02/23/1774702/23/17747 Medications Current Medications Lorazepam (Ativan) 1 mg QHS PRN PO INSOMNIA Last administered on 02/23/17 22: 04; Admin Dose 1 MG; Start 02/22/17 at 00:30 Ondansetron HCl (Zofran Inj) 4 mg Q6H PRN IV NAUSEA AND/OR VOMITING Last administered on 02/25/17 07:53; Admin Dose 4 MG; Start 02/22/17 at 00:30 Acetaminophen (Tylenol Tab) 650 mg Q6H PRN PO PAIN LEVEL 1-3 OR FEVER Last administered on 02/23/17 08:42; Admin Dose 650 MG; Start 02/22/17 at 00:30 Morphine Sulfate (morphine) 2 mg Q4H PRN IV PAIN LEVEL 7-10 Last administered on 02/25/17 07:53; Admin Dose 2 MG; Start 02/22/17 at 00:30 Docusate Sodium (Colace) 100 mg Q12 PO Last administered on 02/24/17 21:26; Admin Dose 100 MG; Start 02/22/17 at 00:30 Bisacodyl (Dulcolax) 5 mg DAILY PO Last administered on 02/24/17 09:38; Admin Dose 5 MG; Start 02/22/17 at 09:00 Pantoprazole (Protonix Tab) 40 mg DAILY@06 PO Last administered on 02/25/17 05 :17; Admin Dose 40 MG; Start 02/22/17 at 06:00 Benzonatate (Tessalon) 100 mg Q8H PRN PO COUGH Last administered on 02/25/17 07:54; Admin Dose 100 MG; Start 02/22/17 at 00:30 Calcium/Vitamin D ([place]/ Vit-D (500/200)) 1 tab DAILY PRN PO DIRECTED Last administered on 02/25/17 08:01; Admin Dose 1 TAB; Start 02/22/17 at 00:30 Clobetasol Propionate (Temovate 0.05% Cr) 1 applic BID TOP Last administered on 02/24/17 21:27; Admin Dose 1 APPLIC; Start 02/22/17 at 09:00 Estradiol (Estrace 0.01% Vaginal Cr) 1 applic DAILY VAG Last administered on 09:38; Admin Dose 1 APPLIC; Start 02/22/17 at 09:00 Fluticasone Propionate (Flonase 0.05% Nasal) 1 spray DAILY NASAL Last administered on 02/24/17 09:37; Admin Dose 1 SPRAY; Start 02/22/17 at 09:00 Folic Acid (Folic Acid) 1 mg DAILY PO Last administered on 02/25/17 08:01; Admin Dose 1 MG; Start 02/22/17 at 09:00 Montelukast Sodium (Singulair) 10 mg QHS PO Last administered on 02/24/17 21: 26; Admin Dose 10 MG; Start 02/22/17 at 21:00 Triamcinolone Acetonide (Kenalog 0.025% Oint) 1 applic BID TOP Last administered on 02/24/17 21:27; Admin Dose 1 APPLIC; Start 02/22/17 at 09:00 Guaifenesin/ Dextromethorphan (Mucinex Dm) 1 tab BID PO Last administered on 08:00; Admin Dose 1 TAB; Start 02/22/17 at 01:00 Levofloxacin (Levaquin) 750 mg Q48H PO Last administered on 02/25/17 05:17; Admin Dose 750 MG; Start 02/23/17 at 06:00 Senna (Senokot) 1 tab DAILY PO Last administered on 02/25/17 08:02; Admin Dose 1 TAB; Start 02/23/17 at 18:00 Assessment/Plan Chief Complaint/Hosp Course Assessment 1. Progressive stage IV lung cancer. 2. Possible postobstructive pneumonia. 3. Recurrent left pleural effusion now with loculated pneumothorax. 4. Currently undergoing chemotherapy with Dr. Quiñones Plan 1. Continue antibiotic coverage 2. Continue supplemental O2 3. Hematology oncology recommendations. 4. Discharge planning. Problems: JONI ORTEGA MD, [facility] Feb 25, 2017 13:00
[2017-02-25] MEDS ORDERED: LEVO750T25 PO (15:02)
--- NOTE | 2017-02-25 15:23 | DS ---
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 Dense consolidation and collapse of the left lung with no aerated left lung remaining demonstrates interval progression since prior exam. Soft tissue debris obliterating the left lower lobe bronchus likely represents the patient' s known tumor and is increased. Left lung consolidation as likely due to a combination of infiltration by tumor and postobstructive atelectasis/ consolidation. Large left pleural effusion with thick enhancement of the pleural lining in keeping with a malignant effusion has increased in size. Right upper lobe lung consolidation is concerning for pneumonia and is new. Interlobular septal thickening right lung may be due to a small right pleural effusion that has increased in size or lymphangitic carcinomatosis and is new from prior exam. Destructive changes involving left first through fifth ribs with dense calcification in the left chest wall and underlying pleural space is unchanged from prior exam and may be from a prior treatments (for example radiation therapy)/surgery. Recommend correlation with medical history. 8.9 US guided thora FINDINGS: Initial ultrasound demonstrates fluid in the left pleural space. Approximately 1.0 liters of sanguineous fluid was aspirated and sent to the laboratory. IMPRESSION: 1. Satisfactory ultrasound-guided left thoracentesis. Hx of Present Illness Chief complaint: Shortness of breath, cough This is 76-year-old female presents with increasing shortness of breath the last few days which increased last night. She has a history of lung cancer and is currently on chemotherapy with the last administration in November. She has not had any fevers or chills but has had a cough. She has felt a little weaker than usual as well. Has persistent pain and feeling of sinus blockage. Patient also states that she feels like it is more difficult for her to breathe on her left side. She currently is being treated with Seranza. She was also treated with antibiotics within the last 90 days for sinus infection Allergies: Codeine Medications: See SEP Hospital Course Pt with pna and symptomatic pleural effusion. Breathing improved once thora done. Pt to complete 7 days total of PO abx for CAP at [facility] Home Meds Reported Medications Albuterol Sulfate* (Ventolin HFA*) 18 Gm Hfa.aer.ad, 2 PUFF INHALATION Q6H Y for DIRECTED, #1 INHALER 02/21/17 Clobetasol Propionate* (Clobetasol Propionate*) 60 Gm Cream.gm., 1 APPLIC TOP BID, #1 TUB 02/21/17 Ipratropium Romance* (Atrovent HFA*) 12.9 Gm Aer.w.adap, 2 PUFF INHALATION BID, #1 INHALER 02/21/17 Calcium Carbonate-Vitamin D3 (Calcium 500 + Vit D 200 Caplet) 1 Each Tablet, 1 TAB PO DAILY Y for DIRECTED, TAB 02/21/17 Albuterol Sulfate* (Albuterol Sulfate* Neb) 0.083%-3 Ml Neb, 1.25 MG NEB Q4H Y for WHEEZING AND SOB, #30 VIAL 02/21/17 Lactose-Free Food (ENSURE LIQUID) 237 Ml Liquid, 237 ML PO BID 02/21/17 Estradiol* (Estrace* Vag) 0.01%-42.5GM Vaginal Cream..g., 1 APPLIC VAG DIRECTED, TUB 02/21/17 Benzonatate* (Benzonatate*) 100 Mg Capsule, 100 MG PO Q8H Y for COUGH, CAP 02/21/17 Triamcinolone Acetonide* (Kenalog*) 0.025%-15GM Oint, 1 APPLIC TOP BID, #1 EA 02/21/17 Montelukast Sodium* (Montelukast Sodium*) 10 Mg Tablet, 10 MG PO QHS, #30 TAB 12/12/16 Aspirin* (Aspirin* EC) 81 Mg Tablet.dr, 81 MG PO DAILY, TAB 12/12/16 Omeprazole* (Omeprazole*) 20 Mg Capsule.dr, 20 MG PO DAILY, #30 CAP 12/12/16 Fluticasone Propionate (Flonase Allergy Relief) 9.9 Ml [place].susp, 1 SPRAY NASAL DAILY, #1 BOTTLE TO EACH NOSTRIL 08/13/16 Folic Acid* (Folic Acid*) 1 Mg Tablet, 1 MG PO DAILY, TAB 03/23/15 Discontinued Reported Medications Docusate Sodium* (Doc-Q-Lace*) 100 Mg Capsule, 100 MG PO BID Y for CONSTIPATION , CAP 12/12/16 Lorazepam* (Lorazepam*) 1 Mg Tablet, 1 MG PO HS Y for SLEEP, #30 TAB 08/13/16 Follow-up Plan onc, pulm as scheduled Primary Care Provider Pilar Moser Time spent on discharge: > 30 minutes Copies To: CC: [facility] OR[facility]GA [facility]; NANO JENKINS M.D., ELLEN MD Feb 25, 2017 15:23
== END 2017-02-25 19:15 | DRG 872 ==
LOC: E/R 16:35 → TEL 21:44
PROVIDERS: ADMIT Family Medicine; ATTEND Family Medicine
PROC: 0W9B3ZZ Drainage of Left Pleural Cavity, Percutaneous Approach (ICD-10-PCS; principal; 2017-02-22)
DX: A41.9 Sepsis, unspecified organism (principal); J91.0 Malignant pleural effusion; J95.811 Postprocedural pneumothorax; C34.90 Malignant neoplasm of unspecified part of unspecified bronchus or lung; Y84.8 Other medical procedures as the cause of abnormal reaction of the patient, or of later complication, without mention of misadventure at the time of the procedure; Z79.82 Long term (current) use of aspirin; Z88.6 Allergy status to analgesic agent; Z85.3 Personal history of malignant neoplasm of breast; Z85.118 Personal history of other malignant neoplasm of bronchus and lung; Z86.718 Personal history of other venous thrombosis and embolism; Z79.899 Other long term (current) drug therapy
CPT/HCPCS: 32555; 36415; 71010; 71275; 80048; 80053; 82550; 82553; 83605; 84484; 85025; 85610; 85730; 87040; 87070; 87102; 87116; 93005; 94640; 96374; 96375; 96376; J0692; J1956; J2270; J2405; J3370; J7030; Q9967